=== PATIENT | female | born 1940 | race Caucasian/White ===

== ENCOUNTER 2022-02-09 11:49 | Observation (INO) ==
--- NOTE | 2022-02-09 12:37 | Emergency Department Note ---
HPI <Carlota Vargas PA-C - Last Filed: 02/09/22 19:57> General Chief complaint: Weakness Stated complaint: multiple complaints Time Seen by Provider: 02/09/22 12:02 Source: patient Mode of arrival: wheelchair Limitations: no limitations History of Present Illness HPI Narrative: Narrative: 81-year-old female presents to the emergency department with multiple concerns. She states that she has been sick for about 2 months and over the past week it has gotten worse. Her biggest complaint is that she cannot see well. She states she cannot see to watch TV or to read. This is getting prog ressively worse. She denies diplopia or blind spots. She describes her vision as blurred. At times she has pain in her eyes, she does not currently have pain. She complains of insomnia. When going from sitting to standing she does get lightheaded. She does feel short of breath with exertion. Her appetite is decreased. She denies nausea or vomiting. She denies black or bloody stools, as she states that she does not have bowel movements very often because she is not eating well. She does have generalized weakness without focal weakness. Patient has chronic back pain and has been having some difficulty with walking. She is seeing Dr. Cooper for this who has ordered an MRI of her back. Related Data Home Medications Medication Instructions Recorded Confirmed lisinopril 10 1 tab PO QDAY 03/15/21 02/09/22 mg-hydrochlorothiazide 12.5 mg tablet esomeprazole magnesium 20 mg 20 mg PO QDAY 02/09/22 02/09/22 capsule,delayed release (Nexium) multivitamin 1 tab PO QAM 02/09/22 02/09/22 Allergies Allergy/AdvReac Type Severity Reaction Status Date / Time Cortisone Allergy Mild Hives Verified 02/04/22 09:31 fentanyl Allergy Mild rash Verified 02/09/22 21:29 tramadol Allergy Mild Rash Verified 02/09/22 21:29 Amoxicillin AdvReac Mild Fatigued Verified 02/09/22 21:29 codeine AdvReac Mild Confusion Verified 02/09/22 21:29 Review of Systems <Carlota Vargas PA-C - Last Filed: 02/09/22 19:57> ROS ROS Narrative: Narrative: All systems ED: reviewed and negative except as stated. 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) Diverticulosis (Chronic) Hypertension (Chronic) Seasonal allergies (Chronic) Osteopenia (Chronic) Chronic back pain (Chronic) Pain in joint of left hip (Chronic) Osteoarthritis, knee (Acute) Medical History (Updated 02/09/22 @ 19:55 by Carlota Vargas PA-C) Chronic back pain Chronic pain Diverticulosis Hypertension Low back pain Lumbar radiculopathy Lumbar stenosis with neurogenic claudication Neoplasm of uncertain behavior of skin Osteoarthritis, knee Osteopenia Pain in joint of left hip Seasonal allergies Skin mole Trunk Surgical History (Updated 03/15/21 @ 10:51 by Dianne Rothman) History of colon surgery (~09/2020) Removed 12 inches of bowel History of lumpectomy of both breasts History of partial knee replacement Family History (Updated 03/21/21 @ 08:57 by Lana Gomez) Father Cancer Heart disease Brother Cancer Arthritis Diabetes Mother Arthritis Sister Arthritis Social History Smoking Status: Never smoker Alcohol Intake Frequency: does not drink Substance Use: does not use Exam <Carlota Vargas PA-C - Last Filed: 02/09/22 19:57> Narrative Narrative: Narrative: General Limitations: no limitations General appearance: Present alert and in no apparent distress Head Head: Present atraumatic and normocephalic Eye Eye: Present PERRL, EOMI and other (Pale palpebral conjunctiva) ENT ENT: Present normal exam Neck Neck: Present normal inspection; Absent lymphadenopathy or thyromegaly Chest Chest: Present normal inspection Respiratory Respiratory: Present normal lung sounds bilaterally Cardiovascular Cardiovascular: Present tachycardia Adbominal Abdominal: Present soft; Absent tenderness Rectal Rectal: Present normal rectal tone and other (Very little light brown stool on exam glove, Hemoccult negative) Course <Carlota Vargas PA-C - Last Filed: 02/09/22 19:57> Vital Signs Vital signs: Vital Signs Pulse Rate 114 H 02/09/22 11:50 Respiratory Rate 18 02/09/22 11:50 Blood Pressure 139/73 02/09/22 11:50 Pulse Oximetry (%) 98 02/09/22 11:50 Temperature 97.4 F 02/10/22 07:01 Pulse Rate 85 02/10/22 07:01 Respiratory Rate 18 02/10/22 07:01 Blood Pressure 107/55 02/10/22 07:01 Pulse Oximetry (%) 99 02/10/22 07:01 MDM <Carlota Vargas PA-C - Last Filed: 02/09/22 19:57> MDM Narrative Medical decision making narrative: Narrative: Records were received from [facility]. Labs were col lected on February 07, 2022 sodium 128, potassium 4.4, glucose 97, BUN 15, creatinine 1.0 White cell count 8.2 hemoglobin 8.4, hematocrit 25.1 iron is 15 with a normal range of 50-212 Labs have been ordered including a Chem-8 and repeat CBC. Patient was treated with IV fluids and 1 unit of packed red blood cells. I discussed patient with Dr. Gunter, the on-call surgeon. I do suspect a GI source of slow blood loss, but cannot confirm this due to no stool on Hemoccult card. Dr. Gunter states that the patient can schedule with his office or that this could be arranged by her primary care provider. After patient received blood transfusion she continued to feel weak. She did not think she could go home. EKG shows normal sinus rhythm, rate of 99, no ST segment changes, normal intervals. This was reviewed by myself with Dr. Stockton. I discussed the patient with the hospitalist. She will be admitted for symptomatic hyponatremia and anemia. A chest x-ray and UA were ordered for the hospitalist recommendation. Chest x- ray was reviewed by myself, there are no acute changes. Lab Data Result diagrams: 02/10/22 05:07 02/10/22 05:06 Labs: Lab Results 02/09/22 02/09/22 02/09/22 Range/Units 12:50 12:57 20:45 WBC 6.9 (4.5-11.0) K/mcL RBC 2.79 L (3.59-5.38) M/mcL Hgb 7.5 L (11.2-15.7) g/dL Hct 22.4 L (34.1-44.9) % POC Hct 24.0 L (36-48) MCV 80.3 (80.0-100.0) fL MCH 26.9 (26.0-34.0) pg MCHC 33.5 (31.0-36.0) g/dL RDW 15.3 H (11.5-14.5) % Plt Count 271 (140-440) K/mcL MPV 9.0 (7.4-10.4) fL Neut % (Auto) 76.5 (38.0-78.0) % Lymph % (Auto) 15.3 L (15.5-49.0) % [place] % (Auto) 7.7 (1.0-12.0) % Eos % (Auto) 0.1 (0.0-7.0) % Baso % (Auto) 0.4 (0.0-2.0) % Lymph # (Auto) 1.05 L (1.50-4.80) K/mcL [place] # (Auto) 0.53 (0.10-0.90) K/mcL Eos # (Auto) 0.01 (0.00-0.70) K/mcL Baso # (Auto) 0.03 (0.00-0.30) K/mcL Absolute Neutrophils 5.25 (1.80-8.00) K/mcL POC Sodium 125 L (133-145) POC Potassium 4.5 (3.3-5.1) POC Chloride 91 L (96-108) POC Total CO2 23.0 (22-30) POC BUN 15 (6-20) POC Creatinine 1.0 (0.6-1.2) POC Glucose 138 H (70-105) POC WB Ioniz Calcium 1.16 (1.16-1.32) Urine Color Yellow Urine Appearance Clear (Clear) Urine pH 6.0 (5.0-9.0) Ur Specific [place] 1.009 (1.000-1.035) Urine Protein Negative (Negative) mg/dL Urine Glucose (UA) Negative (Negative) mg/dL Urine Ketones Negative (Negative) mg/dL Urine Occult Blood 0.03 (Negative) mg/dL Urine Nitrate Negative (Negative) Urine Bilirubin Negative (Negative) mg/dL Urine Urobilinogen Negative mg/dL Ur Leukocyte Esterase Negative (Negative) /uL Urine RBC 1 (0-3) /hpf Urine WBC 2 (0-4) /hpf Ur Squamous Epith Cells 1 (0-4) /hpf Urine Bacteria None (0) /hpf Ur Culture Indicated? No Discharge Plan Patient/Caregiver Discharge Instructions Pt seen by ASSOCIATE ENTERTAINMENT EDITOR/PA only: Yes (Patient was discussed with Dr. Mason and Dr. Stockton, and they did not see pt) Clinical Impression: Acute hyponatremia, Anemia Patient Disposition: Xfer As Inpt ([facility]) Discharge Date/Time: 02/09/22 21:30
[2022-02-09 13:01] LABS: POC Calcium, Ionized 1.16 (1.16-1.32); POC Potassium 4.5 (3.3-5.1)
[2022-02-09 13:43] LABS: Basophils # (Auto) 0.03 K/mcL (0.00-0.30); Basophils % (Auto) 0.4 % (0.0-2.0); Eosinophils # (Auto) 0.01 K/mcL (0.00-0.70); Eosinophils % (Auto) 0.1 % (0.0-7.0); Hematocrit 22.4 % (34.1-44.9); Hemoglobin 7.5 g/dL (11.2-15.7); Lymphocytes # (Auto) 1.05 K/mcL (1.50-4.80); Lymphocytes % (Auto) 15.3 % (15.5-49.0); Mean Cell Volume 80.3 fL (80.0-100.0); Mean Corpuscular HGB Conc 33.5 g/dL (31.0-36.0); Monocytes # (Auto) 0.53 K/mcL (0.10-0.90); Monocytes % (Auto) 7.7 % (1.0-12.0); Neutrophils % (Auto) 76.5 % (38.0-78.0); Platelet Count 271 K/mcL (140-440); RBC 2.79 M/mcL (3.59-5.38); Red Cell Distribution Width 15.3 % (11.5-14.5)
[2022-02-09] MEDS ORDERED: 0.9 % SODIUM CHLORIDE 250 ML IV SCH (14:00)
[2022-02-09 14:13] LABS: WBC 6.9 K/mcL (4.5-11.0)
[2022-02-09] MEDS ORDERED: ONDANSETRON 4 MG/2 ML VIAL IV PRN (21:04)
[2022-02-09] MEDS ORDERED: ACETAMINOPHEN 325 MG TABLET PO PRN (21:09)
[2022-02-09] MEDS ORDERED: IPRATROPIUM/ALBUTEROL 3 ML AMPUL.NEB NEB PRN (21:09)
[2022-02-09] MEDS ORDERED: PROCHLORPERAZINE 10 MG/2 ML VIAL IV PRN (21:09)
[2022-02-09] MEDS ORDERED: MAG HYDROX/AL HYDROX/SIMETH 30 ML ORAL.SUSP PO PRN (21:09)
[2022-02-09] MEDS ORDERED: CALCIUM CARBONATE 500 MG TAB.CHEW CHEWED PRN (21:09)
[2022-02-09 21:26] LABS: Appearance,Urine CLEAR (Clear); Bilirubin,Urine Negative (Negative); Color,Urine YELLOW; Culture Indicated,Urine No; Glucose,Urine (UA) Negative (Negative); Ketones,Urine Negative (Negative); Leukocyte Esterase,Urine Negative /uL (Negative); Nitrate,Urine Negative (Negative); Protein,Urine Negative (Negative); Specific Gravity,Urine 1.009 (1.000-1.035); Urine Blood 0.03 mg/dL (Negative); Urine RBC 1 /hpf (0-3); Urine Squamous Epithelial Cell 1 /hpf (0-4); Urine WBC 2 /hpf (0-4); Urobilinogen,Urine Negative
[2022-02-09] MEDS: 0.9 % SODIUM CHLORIDE 1,000 ML IV SCH (21:54)
[2022-02-09] MEDS ORDERED: traZODone HCL 50 MG TABLET PO PRN (22:15)
[2022-02-09] MEDS: 0.9 % SODIUM CHLORIDE 10 ML SYRINGE IV SCH (22:37)
[2022-02-09] MEDS: QUEtiapine 25 MG TABLET PO SCH (23:05)
[2022-02-09] MEDS: DOCUSATE SODIUM 100 MG CAPSULE PO SCH (23:08)
[2022-02-09] MEDS ORDERED: QUEtiapine 25 MG TABLET ONE (23:10)
[2022-02-10] MEDS: 0.9 % SODIUM CHLORIDE 10 ML SYRINGE IV SCH ×3 (04:41→20:31)
[2022-02-10 06:36] LABS: Basophils # (Auto) 0.02 K/mcL (0.00-0.30); Basophils % (Auto) 0.4 % (0.0-2.0); Eosinophils # (Auto) 0.04 K/mcL (0.00-0.70); Eosinophils % (Auto) 0.8 % (0.0-7.0); Hematocrit 26.3 % (34.1-44.9); Lymphocytes # (Auto) 1.35 K/mcL (1.50-4.80); Lymphocytes % (Auto) 28.4 % (15.5-49.0); Mean Cell Volume 87.7 fL (80.0-100.0); Mean Corpuscular HGB Conc 30.4 g/dL (31.0-36.0); Mean Platelet Volume 8.9 fL (7.4-10.4); Monocytes # (Auto) 0.49 K/mcL (0.10-0.90); Monocytes % (Auto) 10.3 % (1.0-12.0); Neutrophils % (Auto) 60.1 % (38.0-78.0); Platelet Count 184 K/mcL (140-440); Red Cell Distribution Width 16.2 % (11.5-14.5)
[2022-02-10 06:50] LABS: ALT/SGPT 24 U/L (<40); AST/SGOT 26 U/L (<32); Albumin 2.6 gm/dL (3.2-5.2); Albumin/Globulin Ratio 0.8 (1.0-2.3); Alkaline Phosphatase 151 U/L (39-117); Bilirubin,Total 0.9 mg/dL (0.1-1.0); Blood Urea Nitrogen 12 mg/dL (8-23); Calcium 8.3 mg/dL (8.6-10.4); Carbon Dioxide 21 mmol/L (22-30); Chloride 92 mmol/L (96-108); Globulin 3.1 gm/dL (2.2-3.7); Glomerular Filtration Rate 60; Glucose 87 mg/dL (70-105)
--- NOTE | 2022-02-10 07:09 | EKG ---
[facility] Test Date: 2022-02-09 Pat Name: Sole Peñaloza Department: ED Room: Gender: Female Educational Psychologist: : 1940 Requested By: Dewayne Mason Order Number: [id number] Reading MD: Chico Huerta Measurements Intervals [place] Rate: 113 P: 60 PA: 159 QRS: -27 QRSD: 86 T: 49 QT: 318 QTc: 436 Interpretive Statements Sinus tachycardia Borderline left axis deviation Electronically Signed On 02-10-2022 7:09:14 PDT by Chico Huerta /store/[email or web address]/[id number]
[2022-02-10 07:30] LABS: WBC 4.8 K/mcL (4.5-11.0)
[2022-02-10] MEDS ORDERED: PANTOPRAZOLE 40 MG TABLET PO SCH (07:30)
[2022-02-10] MEDS: ENOXAPARIN 40 MG/0.4 ML SYRINGE SQ SCH (08:06)
[2022-02-10] MEDS: DOCUSATE SODIUM 100 MG CAPSULE PO SCH ×2 (08:06→20:30)
--- NOTE | 2022-02-10 08:47 | XRay Report ---
CLINICAL INFORMATION: Dyspnea COMPARISON: 07/17/2011. TECHNIQUE: PA and Lateral views FINDINGS: The heart size, mediastinum and pulmonary vessels are unremarkable. Minor bibasilar atelectasis noted.. There are no effusions. The bones and soft tissues are within normal limits. IMPRESSION: Normal chest. Interpreted and Authenticated by: Elijah Dent 02/10/22
[2022-02-10] MEDS: 0.9 % SODIUM CHLORIDE 1,000 ML IV SCH (10:26)
--- NOTE | 2022-02-10 11:27 | Internal Med History&Physical ---
HPI History of Present Illness Patient information: Note initiated : 02/09/22 at 23:26 am Service Date, if different from initiated Date: [] Patient: Sole Peñaloza 81 y/o F admitted on 02/09/22 for multiple complaints. Chief Complaint: [] Chief complaint: weakness History of present illness: This is a 81-year-old female with a history of essential hypertension GERD was brought to the ER because of worsening abdominal symptoms low appetite and recurrent headache for the last 2 months patient discussed this with her family member who is a PA and recommended going to the emergency room. Patient had chronic back pain and seen by pain physician and started on duloxetine which made her nauseated having diarrhea and patient stopped taking the medication Patient has been feeling worse since then and was brought to the ER in the emergency room initial work-up was unremarkable no signs of infection no evidence of any ischemia patient vital signs within normal limits but her lab work-up showed evidence of hemoglobin 7.5 and given 1 unit of blood transfusion also her sodium was 125. Patient takes hydrochlorothiazide at home. Patient was admitted to hospital for further management hyponatremia and hemoglobin is 7.5 which the emergency room physician discussed with on-call surgeon and recommended outpatient work-up Review of Systems All systems: reviewed and no additional remarkable complaints except as stated Constitutional Constitutional: Present fatigue, headache(s) and malaise; Absent daytime sleepiness, fever(s) or increased appetite EENT Eyes: Absent change in vision, discharge or floaters Ears: Absent decreased hearing, ear pain or tinnitus Nose, mouth and throat: Present dizziness and headache(s); Absent change in voice or epistaxis Cardiovascular Cardiovascular: Absent chest pain with activity, dyspnea, edema, leg edema, orthopnea, pedal edema, slow heart rate or syncope Respiratory Respiratory: Absent hemoptysis, snoring, chest congestion or pain with cough Gastrointestinal Gastrointestinal: Present change in bowel habits, constipation, diarrhea and nausea; Absent coffee ground emesis, fecal incontinence, hematemesis or melena Genitourinary Genitourinary: Present amenorrhea and change in libido; Absent breast pain, difficulty urinating, dyspareunia or genital lesions Musculoskeletal Musculoskeletal: Present back pain, muscle cramps, muscle weakness and neck pain Neurological Neurological: Present burning sensations and disequilibrium; Absent abnormal movements, frequent falls, loss of vision, paresthesias, tremor(s) or other visual disturbances PFSH PFSH All Active Problems (Updated 02/09/22 @ 19:55 by Carlota Vargas PA-C) Acute hyponatremia (Acute) Anemia (Acute) Lumbosacral spondylosis (Acute) Spondylosis without myelopathy or radiculopathy, lumbar region (Acute) Low back pain (Chronic) Lumbar radiculopathy (Chronic) Lumbar stenosis with neurogenic claudication (Chronic) Chronic pain (Chronic) Skin mole (Chronic) 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) Diverticulosis (Chronic) Hypertension (Chronic) Seasonal allergies (Chronic) Osteopenia (Chronic) Chronic back pain (Chronic) Pain in joint of left hip (Chronic) Osteoarthritis, knee (Acute) Medical History (Updated 02/09/22 @ 19:55 by Carlota Vargas PA-C) Chronic back pain Chronic pain Diverticulosis Hypertension Low back pain Lumbar radiculopathy Lumbar stenosis with neurogenic claudication Neoplasm of uncertain behavior of skin Osteoarthritis, knee Osteopenia Pain in joint of left hip Seasonal allergies Skin mole Trunk Surgical History (Updated 03/15/21 @ 10:51 by Dianne Rothman) History of colon surgery (~09/2020) Removed 12 inches of bowel History of lumpectomy of both breasts History of partial knee replacement Family History (Updated 03/21/21 @ 08:57 by Lana Gomez) Father Cancer Heart disease Brother Cancer Arthritis Diabetes Mother Arthritis Sister Arthritis Social History (Updated 03/21/21 @ 08:57 by Lana Gomez) marital status: education level: high school occupational status: retired smoking status: Never smoker alcohol intake frequency: does not drink substance use type: does not use MEDS/ALLERGIES Home Medications and Allergies Home Medications Medication Instructions Recorded Confirmed Type lisinopril 10 1 tab PO QDAY 03/15/21 02/09/22 History mg-hydrochlorothiazide 12.5 mg tablet esomeprazole magnesium 20 mg 20 mg PO QDAY 02/09/22 02/09/22 History capsule,delayed release (Nexium) multivitamin 1 tab PO QAM 02/09/22 02/09/22 History Allergies Allergy/AdvReac Type Severity Reaction Status Date / Time Cortisone Allergy Mild Hives Verified 02/04/22 09:31 fentanyl Allergy Mild rash Verified 02/09/22 21:29 tramadol Allergy Mild Rash Verified 02/09/22 21:29 Amoxicillin AdvReac Mild Fatigued Verified 02/09/22 21:29 codeine AdvReac Mild Confusion Verified 02/09/22 21:29 EXAM Constitutional Vitals: Temp Pulse Resp BP Pulse Ox 97.4 F 85 18 107/55 99 02/10/22 07:01 02/10/22 07:01 02/10/22 07:01 02/10/22 07:01 02/10/22 07:01 General appearance: mild distress Head Head exam: Present atraumatic and normal inspection Expanded Head Exam Head exam: Absent abrasion, Snyder's sign, CSF rhinorrhea or laceration Eye Eye exam: Present EOMI; Absent conjunctival injection or periorbital swelling Pupils: Present PERRL ENT ENT exam: Present mucous membranes dry and normal oropharynx Neck Neck exam: Present full ROM and normal inspection; Absent lymphadenopathy, meningismus or tenderness Respiratory Respiratory exam: Present normal respiratory exam and CTAB; Absent accessory muscle use or respiratory distress Cardiovascular Cardiovascular exam: Present normal rate and rhythm; Absent bradycardia, irregular rhythm, +S3 or +S4 Expanded Upper Extremity Exam General: Present normal inspection; Absent abrasion, amputation or laceration Back Exam Back exam: Present normal inspection; Absent CVA tenderness (L) or CVA tenderness (R) Neurological Exam Neurological exam: Present alert, CN II-XII intact, oriented X3 and reflexes normal; Absent motor sensory deficit Psychiatric Psychiatric exam: Present anxious and depressed Expanded Psychiatric Exam Focused psych exam: Present loose associations and restlessness DATA Data Completed and Pending Labs: Labs from last 24 hours 02/10/22 02/10/22 02/09/22 05:07 05:06 20:45 WBC 4.8 RBC 3.00 L Hgb 8.0 L Hct 26.3 L POC Hct MCV 87.7 MCH 26.7 MCHC 30.4 L RDW 16.2 H Plt Count 184 MPV 8.9 Neut % (Auto) 60.1 Lymph % (Auto) 28.4 [place] % (Auto) 10.3 Eos % (Auto) 0.8 Baso % (Auto) 0.4 Lymph # (Auto) 1.35 L [place] # (Auto) 0.49 Eos # (Auto) 0.04 Baso # (Auto) 0.02 Absolute Neutrophils 2.85 POC Sodium Sodium 123 L POC Potassium Potassium 4.4 POC Chloride Chloride 92 L Carbon Dioxide 21 L POC Total CO2 Anion Gap 10.0 POC BUN BUN 12 Creatinine 0.9 POC Creatinine GFR Calculation 60 Glucose 87 POC Glucose Calcium 8.3 L POC WB Ioniz Calcium Magnesium 1.8 Total Bilirubin 0.9 AST 26 ALT 24 Alkaline Phosphatase 151 H Total Protein 5.7 L Albumin 2.6 L Globulin 3.1 Albumin/Globulin Ratio 0.8 L Urine Color Yellow Urine Appearance Clear Urine pH 6.0 Ur Specific [place] 1.009 Urine Protein Negative Urine Glucose (UA) Negative Urine Ketones Negative Urine Occult Blood 0.03 Urine Nitrate Negative Urine Bilirubin Negative Urine Urobilinogen Negative Ur Leukocyte Esterase Negative Urine RBC 1 Urine WBC 2 Ur Squamous Epith Cells 1 Urine Bacteria None Ur Culture Indicated? No 02/09/22 02/09/22 12:57 12:50 WBC 6.9 RBC 2.79 L Hgb 7.5 L Hct 22.4 L POC Hct 24.0 L MCV 80.3 MCH 26.9 MCHC 33.5 RDW 15.3 H Plt Count 271 MPV 9.0 Neut % (Auto) 76.5 Lymph % (Auto) 15.3 L [place] % (Auto) 7.7 Eos % (Auto) 0.1 Baso % (Auto) 0.4 Lymph # (Auto) 1.05 L [place] # (Auto) 0.53 Eos # (Auto) 0.01 Baso # (Auto) 0.03 Absolute Neutrophils 5.25 POC Sodium 125 L Sodium POC Potassium 4.5 Potassium POC Chloride 91 L Chloride Carbon Dioxide POC Total CO2 23.0 Anion Gap POC BUN 15 BUN Creatinine POC Creatinine 1.0 GFR Calculation Glucose POC Glucose 138 H Calcium POC WB Ioniz Calcium 1.16 Magnesium Total Bilirubin AST ALT Alkaline Phosphatase Total Protein Albumin Globulin Albumin/Globulin Ratio Urine Color Urine Appearance Urine pH Ur Specific [place] Urine Protein Urine Glucose (UA) Urine Ketones Urine Occult Blood Urine Nitrate Urine Bilirubin Urine Urobilinogen Ur Leukocyte Esterase Urine RBC Urine WBC Ur Squamous Epith Cells Urine Bacteria Ur Culture Indicated? A/P Narrative A/P Narrative: Hyponatremia Probably due to poor oral intake versus SIADH Order urine sodium We will start her on IV fluid hydration and recheck sodium If it is dropping we will consider salt tablets Patient was complaining of headache anxious and recently started on duloxetine which made her abdominal symptoms and diarrhea Possible blood loss anemia Patient's hemoglobin was 7.5 and recently its been in the 8 range Patient denied any history of history of melena or abdominal symptoms Emergency room physician discussed with the on-call surgeon and recommended outpatient work-up Chronic headache Will do an MRI to look for any space-occupying lesions She need outpatient neurology work-up if she continued having headache even after negative MRI Insomnia and anxiety Patient exhibiting significant anxiety and insomnia no sleep for the last 2 dariel hs Starting the patient on Seroquel 25 mg Essential hypertension Patient take lisinopril and hydrochlorothiazide we will hold that because of the hyponatremia Time Spent With Patient Time: Total time spent is greater than 50% in coordination of care (as documented) at patient's floor/unit and/or counseling patient:
[2022-02-10] MEDS ORDERED: 0.9 % SODIUM CHLORIDE 250 ML IV SCH (11:30)
--- NOTE | 2022-02-10 11:39 | Internal Med Progress Note ---
SUBJECTIVE Subjective Patient information: Note initiated : 02/10/22 at 11:35 am Service Date, if different from initiated Date: [] Patient: Sole Peñaloza 81 y/o F admitted on 02/09/22 for multiple complaints. Chief Complaint: [] Interval history: This is a 81-year-old female with a history of essential hypertension GERD was brought to the ER because of worsening abdominal symptoms low appetite and recurrent headache for the last 2 months patient discussed this with her family member who is a PA and recommended going to the emergency room. Patient had chronic back pain and seen by pain physician and started on duloxetine which made her nauseated having diarrhea and patient stopped taking the medication Patient has been feeling worse since then and was brought to the ER in the emergency room initial work-up was unremarkable no signs of infection no evidence of any ischemia patient vital signs within normal limits but her lab work-up showed evidence of hemoglobin 7.5 and given 1 unit of blood transfusion also her sodium was 125. Patient takes hydrochlorothiazide at home. Patient was admitted to hospital for further management hyponatremia and hemoglobin is 7.5 which the emergency room physician discussed with on-call surgeon and recommended outpatient work-up 02/10 Sodium continues to drop even after IV hydration which indicate possible SIADH Starting the patient on salt tablet and recheck sodium Ordered urine sodium level Ordered 1 more unit of blood transfusion MRI pending Patient is able to sleep with the Seroquel Continued Pertinent ROS: Review of system unremarkable Patient continued having intermittent headache No other new symptoms Was able to sleep decent with the seroquel Constitutional Vitals: Vital Signs Temp Pulse Resp BP Pulse Ox 97.4 F 85 18 107/55 99 02/10/22 07:01 02/10/22 07:01 02/10/22 07:01 02/10/22 07:01 02/10/22 07:01 Period Temp Pulse Resp BP Sys/Rivera Pulse Ox Last 24 Hr 97.4 F-98.2 F 80-114 16-34 80-154/36-87 93-100 Intake and Output 02/09/22 02/10/22 02/10/22 21:59 05:59 13:59 Intake Total 658 625 7882 Output Total 300 475 Balance 325 -100 765 Weight 151 lb 151 lb Intake & Output: Intake & Output 02/09/22 02/10/22 02/10/22 21:59 05:59 13:59 Intake Total 114 482 3935 Output Total 300 475 Balance 325 -100 765 Weight 151 lb 151 lb Intake: IV 1000 Sodium Chloride 0.9% 1,000 ml @ 1000 100 mls/hr IV .Q10H [facility] Rx#: [id number] Oral 200 240 Blood Product 325 Output: Void Amount 300 475 Other: Meal snack Breakfast Percent of Meal Consumed 100% 50% Feeding Ability Independent Urine Appearance Clear Urine Color Straw General appearance: cooperative and no acute distress Head Head exam: Present atraumatic and normal inspection Eye Eye exam: Present EOMI Pupils: Present normal accommodation ENT ENT exam: Present mucous membranes moist and normal oropharynx Respiratory Respiratory exam: Present CTAB; Absent accessory muscle use, respiratory distress or wheezes Cardiovascular Cardiovascular exam: Present normal rate and rhythm; Absent bradycardia or gall op GI/Abdominal GI/Abdominal exam: Present normal bowel sounds and soft; Absent distended OBJ DATA Labs CBC & Chem 7: 02/10/22 05:07 02/10/22 05:06 Labs: Abnormal Lab Results 02/10/22 02/10/22 02/09/22 05:07 05:06 12:57 RBC 3.00 L Hgb 8.0 L Hct 26.3 L POC Hct 24.0 L MCHC 30.4 L RDW 16.2 H Lymph % (Auto) Lymph # (Auto) 1.35 L POC Sodium 125 L Sodium 123 L POC Chloride 91 L Chloride 92 L Carbon Dioxide 21 L POC Glucose 138 H Calcium 8.3 L Alkaline Phosphatase 151 H Total Protein 5.7 L Albumin 2.6 L Albumin/Globulin Ratio 0.8 L 02/09/22 12:50 RBC 2.79 L Hgb 7.5 L Hct 22.4 L POC Hct MCHC RDW 15.3 H Lymph % (Auto) 15.3 L Lymph # (Auto) 1.05 L POC Sodium Sodium POC Chloride Chloride Carbon Dioxide POC Glucose Calcium Alkaline Phosphatase Total Protein Albumin Albumin/Globulin Ratio Meds: Medications Acetaminophen (Acetaminophen 325 Mg Tablet) 650 mg PO Q6HP PRN; Protocol PRN Reason: Per Pain Protocol/Fever > 101 Al Hydrox/Mg Hydrox/Simethicone (Mag Hydrox/Al Hydrox/Simeth 30 Ml Oral.Susp) 30 ml PO Q6HP PRN PRN Reason: Dyspepsia Albuterol/Ipratropium (Ipratropium/Albuterol 3 Ml Ampul.Neb) 3 ml NEB Q6HRT PRN PRN Reason: Wheezing Calcium Carbonate/Glycine (Calcium Carbonate 500 Mg Tab.Chew) 1,000 mg CHEWED Q4HP PRN PRN Reason: Dyspepsia Docusate Sodium (Docusate Sodium 100 Mg Capsule) 100 mg PO BID [facility] Last Admin: 02/10/22 08:06 Dose: 100 mg Documented by: Enoxaparin Sodium (Enoxaparin 40 Mg/0.4 Ml Syringe) 40 mg SQ DAILY [facility] Last Admin: 02/10/22 08:06 Dose: 40 mg Documented by: Sodium Chloride (Sodium Chloride 0.9%) 250 mls @ 20 mls/hr IV .[id number] [facility] Stop: 02/10/22 23:59 Magnesium Hydroxide (Magnesium Hydroxide 30 Ml Oral.Susp) 30 ml PO DAILYP PRN PRN Reason: Constipation Ondansetron HCl (Ondansetron 4 Mg/2 Ml Vial) 4 mg IV Q6HP PRN PRN Reason: Nausea And Vomiting Esomeprazole [Nexium (] 20 Mg Caps) 1 dose PO DAILY [facility] Prochlorperazine (Prochlorperazine 10 Mg/2 Ml Vial) 5 mg IV Q4HP PRN PRN Reason: Nausea And Vomiting Quetiapine Fumarate (Quetiapine 25 Mg Tablet) 25 mg PO HS [facility] Last Admin: 02/09/22 23:05 Dose: 25 mg Documented by: Senna (Sennosides 1 Tablet) 2 tab PO [facility] Sodium Chloride (0.9 % Sodium Chloride 10 Ml Syringe) 10 ml IV Q8 [facility] Last Admin: 02/10/22 04:41 Dose: Not Given Documented by: Sodium Chloride (Sodium Chloride 1 Gm Tablet) 2 gm PO TID [facility] Trazodone HCl (Trazodone Hcl 50 Mg Tablet) 25 mg PO HSP PRN PRN Reason: Insomnia A/P Narrative A/P Narrative: 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 Order urine sodium We will discontinue NS and starting her on salt tablets Possible blood loss anemia Patient's hemoglobin was 7.5 and recently its been in the 8 range Patient denied any history of history of melena or abdominal symptoms Emergency room physician discussed with the on-call surgeon and recommended outpatient work-up Hemoglobin remained around 8 and ordered 1 more unit of blood transfusion Chronic headache Will do an MRI to look for any space-occupying lesions She need outpatient neurology work-up if she continued having headache even after negative MRI Insomnia and anxiety Patient exhibiting significant anxiety and insomnia no sleep for the last 2 months Patient got some decent sleep with the Seroquel 25 mg-continued Essential hypertension Patient take lisinopril and hydrochlorothiazide we will hold that because of the hyponatremia Time Spent With Patient Time: Total time spent is greater than 50% in coordination of care (as documented) at patient's floor/unit and/or counseling patient: Total time spent with greater than 50% in coordination of care (as documented) at patient's floor/unit and/or counseling patient:: 35 - 50 minutes Critical Care Time: No
[2022-02-10] MEDS: ESOMEPRAZOLE 20 MG PO SCH (11:49)
[2022-02-10] MEDS: SODIUM CHLORIDE 1 GM TABLET PO SCH ×2 (17:42→20:30)
[2022-02-10] MEDS: MAGNESIUM HYDROXIDE 30 ML ORAL.SUSP PO PRN (19:00)
[2022-02-10] MEDS: QUEtiapine 25 MG TABLET PO SCH (20:30)
[2022-02-10] MEDS ORDERED: SENNOSIDES 1 TABLET PO SCH (21:00)
[2022-02-10] MEDS: hydrALAZINE 25 MG TABLET PO PRN (21:54)
--- NOTE | 2022-02-11 03:04 | Magnetic Resonance Report ---
CLINICAL INFORMATION: Headaches. History of hyponatremia and anemia COMPARISON: None. TECHNIQUE:Sagittal T1 FLAIR, axial T1 FLAIR, T2 FLAIR propeller, T2 propeller, gradient, diffusion, ADC and coronal T2 weighted images were acquired. FINDINGS: The ventricles, sulci, fissures and cisterns are symmetrically enlarged compatible with mild age-related atrophy configuration-no extra-axial fluid collections or mass are appreciated. Scattered senescent ischemic foci, in the deep cerebral white matter, are typical for age. 14 mm high signal lesion in the left thalamus also likely represents chronic ischemia. Two small chronic ischemic foci seen in the central tamera both less than 5 mm. There are no regions of restricted diffusion, edema, or mass affect. A 3 mm low signal focus in the right parietal white matter, on magnetic susceptibility images, is compatible with hemosiderin representing a small remote hemorrhage. The signal void in intracerebral arteries, extra-axial cranial nerves, pituitary, orbits and paranasal sinuses are all normal. IMPRESSION: Mild atrophy with scattered chronic ischemic foci in the deep cerebral white matter compatible age. Vague 14 mm region of increased signal in the left thalamus likely represents ischemia. Solitary 3 mm tiny focus of old hemorrhage in the posterior right parietal lobe. Interpreted and Authenticated by: Elijah Dent 02/11/22
[2022-02-11 06:35] LABS: Basophils # (Auto) 0.02 K/mcL (0.00-0.30); Basophils % (Auto) 0.4 % (0.0-2.0); Eosinophils # (Auto) 0.04 K/mcL (0.00-0.70); Eosinophils % (Auto) 0.8 % (0.0-7.0); Hematocrit 28.1 % (34.1-44.9); Hemoglobin 9.2 g/dL (11.2-15.7); Lymphocytes # (Auto) 1.12 K/mcL (1.50-4.80); Lymphocytes % (Auto) 23.5 % (15.5-49.0); Mean Cell Volume 79.6 fL (80.0-100.0); Mean Corpuscular HGB Conc 32.7 g/dL (31.0-36.0); Mean Platelet Volume 8.9 fL (7.4-10.4); Monocytes # (Auto) 0.44 K/mcL (0.10-0.90); Monocytes % (Auto) 9.2 % (1.0-12.0); Neutrophils % (Auto) 66.1 % (38.0-78.0); Platelet Count 207 K/mcL (140-440); RBC 3.53 M/mcL (3.59-5.38); Red Cell Distribution Width 15.8 % (11.5-14.5)
[2022-02-11 06:53] LABS: ALT/SGPT 44 U/L (<40); AST/SGOT 48 U/L (<32); Albumin 2.3 gm/dL (3.2-5.2); Albumin/Globulin Ratio 0.7 (1.0-2.3); Alkaline Phosphatase 206 U/L (39-117); Blood Urea Nitrogen 14 mg/dL (8-23); Calcium 8.3 mg/dL (8.6-10.4); Carbon Dioxide 22 mmol/L (22-30); Chloride 96 mmol/L (96-108); Globulin 3.5 gm/dL (2.2-3.7); Glomerular Filtration Rate 60; Glucose 84 mg/dL (70-105)
[2022-02-11] MEDS: ENOXAPARIN 40 MG/0.4 ML SYRINGE SQ SCH (08:44)
[2022-02-11] MEDS: DOCUSATE SODIUM 100 MG CAPSULE PO SCH (08:45)
[2022-02-11] MEDS: SODIUM CHLORIDE 1 GM TABLET PO SCH ×2 (08:45→14:48)
[2022-02-11] MEDS: ESOMEPRAZOLE 20 MG PO SCH (08:51)
[2022-02-11] MEDS: hydrALAZINE 25 MG TABLET PO PRN (08:54)
[2022-02-11 09:08] LABS: WBC 4.8 K/mcL (4.5-11.0)
[2022-02-11] MEDS: MAGNESIUM HYDROXIDE 30 ML ORAL.SUSP PO PRN (09:34)
--- NOTE | 2022-02-11 12:21 | Discharge Summary ---
Discharge Provider Provider IMPORTANT FOLLOW-UP INFORMATION FOR PCP: Follow up EGD and colonoscopy evaluation Patient information: Note initiated : 02/11/22 at 12:16 pm Service Date, if different from initiated Date: [] Patient: Sole Peñaloza 81 y/o F admitted on 02/09/22 for multiple complaints. Chief Complaint: [] Date of admission: 02/09/22 21:24 Discharge date: 02/11/22 Primary care physician: Anmu Castellon Consults: 02/10/22 07:23 Consult to Physician [CONS] Routine Comment: Consulting Provider: Adams Saldana Reason For Exam: Physician to Consult COURSE Hospital Course Hospital course: This is a 81-year-old female with a history of essential hypertension GERD was brought to the ER because of worsening abdominal symptoms low appetite and recurrent headache for the last 2 months patient discussed this with her family member who is a PA and recommended going to the emergency room. Patient had chronic back pain and seen by pain physician and started on duloxetine which made her nauseated having diarrhea and patient stopped taking the medication Patient has been feeling worse since then and was brought to the ER in the emergency room initial work-up was unremarkable no signs of infection no evidence of any ischemia patient vital signs within normal limits but her lab work-up showed evidence of hemoglobin 7.5 and given 1 unit of blood transfusion also her sodium was 125. Patient takes hydrochlorothiazide at home. Patient was admitted to hospital for further management hyponatremia and hemoglobin is 7.5 which the emergency room physician discussed with on-call surgeon and recommended outpatient work-up 02/10 Sodium continues to drop even after IV hydration which indicate possible SIADH Starting the patient on salt tablet and recheck sodium Ordered urine sodium level Ordered 1 more unit of blood transfusion MRI pending Patient is able to sleep with the Seroquel Continued 02/11 Patient had a bowel movement today and she is feeling better Her headache significantly improved Patient was able to sleep with the Seroquel 25 mg Her MRI did not show any acute stroke but she had probable subacute and chronic ischemic changes Patient will be started on aspirin 81 mg Her hemoglobin is stable she needs to see outpatient gastroenterology for colonoscopy and EGD Patient also needs to see neurology if she continued having headache Physical therapy evaluated the patient and no need for any inpatient rehab or subacute rehab patient can be discharged home 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 We will discontinue NS and starting her on salt tablets We will discontinue her hydrochlorothiazide Encourage her to increase her salt intake for the next 1 week Possible blood loss anemia Patient's hemoglobin was 7.5 and recently its been in the 8 range Patient denied any history of history of melena or abdominal symptoms Emergency room physician discussed with the on-call surgeon and recommended outpatient work-up Hemoglobin remained around 8 and ordered 1 more unit of blood transfusion and her hemoglobin more than 9 Outpatient follow-up with a general surgeon or gastroenterology for EGD and colonoscopy Chronic headache Will do an MRI to look for any space-occupying lesions She need outpatient neurology work-up if she continued having headache even after negative MRI Insomnia and anxiety Patient exhibiting significant anxiety and insomnia no sleep for the last 2 months Patient got some decent sleep with the Seroquel 25 mg-continued Dose decreased to 12.5 mg Essential hypertension Patient take lisinopril and hydrochlorothiazide we will hold that because of the hyponatremia Discharge diagnosis: hyponatremia Time Spent with Patient Time attestation: Total time spent providing and/or coordinating discharge services: Time spent: Greater than 30 minutes EXAM Constitutional Vitals: Temp Pulse Resp BP Pulse Ox 97.3 F 86 18 106/47 94 02/11/22 08:00 02/11/22 08:00 02/11/22 08:00 02/11/22 08:00 02/11/22 08:00 General appearance: cooperative and no acute distress Head Head exam: Present atraumatic and normal inspection Expanded Head Exam Head exam: Absent abrasion, CSF otorrhea or hematoma Eye Eye exam: Present EOMI and PERRL; Absent conjunctival injection or scleral icterus ENT ENT exam: Present mucous membranes moist and normal oropharynx Expanded ENT Exam Ear exam: Absent auricular hematoma or auricular trauma Neck Neck exam: Present full ROM and normal inspection; Absent lymphadenopathy or tenderness Respiratory Respiratory exam: Present normal respiratory exam and CTAB; Absent accessory muscle use or respiratory distress Cardiovascular Cardiovascular exam: Present normal rate and rhythm; Absent bradycardia, gallop or RRR GI/Abdominal GI/Abdominal exam: Present normal bowel sounds and soft; Absent distended or hernia Expanded GI/Abdominal Exam GI/Abdominal exam: Absent ascites Neurological Exam Neurological exam: Present abnormal gait, alert, CN II-XII intact, oriented X3 and reflexes normal; Absent altered or motor sensory deficit Discharge Data Data Completed and Pending Labs on day of discharge: Labs from last 24 hours 02/11/22 02/11/22 05:19 05:19 WBC 4.8 RBC 3.53 L Hgb 9.2 L Hct 28.1 L MCV 79.6 L MCH 26.1 MCHC 32.7 RDW 15.8 H Plt Count 207 MPV 8.9 Neut % (Auto) 66.1 Lymph % (Auto) 23.5 [place] % (Auto) 9.2 Eos % (Auto) 0.8 Baso % (Auto) 0.4 Lymph # (Auto) 1.12 L [place] # (Auto) 0.44 Eos # (Auto) 0.04 Baso # (Auto) 0.02 Absolute Neutrophils 3.14 Sodium 127 L Potassium 4.5 Chloride 96 Carbon Dioxide 22 Anion Gap 9.0 BUN 14 Creatinine 0.9 GFR Calculation 60 Glucose 84 Calcium 8.3 L Magnesium 2.0 Total Bilirubin 1.0 AST 48 H ALT 44 H Alkaline Phosphatase 206 H Total Protein 5.8 L Albumin 2.3 L Globulin 3.5 Albumin/Globulin Ratio 0.7 L Discharge Plan Patient/Caregiver Discharge Instructions Activity: resume usual activities as tolerated Diet: Regular Diet Activity Restrictions/Additional Instructions: Gastroenterology or general surgery evaluation and potential EGD and colonoscopy in 2 to 3 weeks Neurology-establish care for chronic headache and difficulty walking Follow-up with primary care regarding low hemoglobin and EGD and colonoscopy - in 1 week Stop taking hydrochlorothiazide Prescriptions: No Action lisinopril-hydrochlorothiazide 10-12.5 mg tablet 1 tab PO QDAY 0RF esomeprazole magnesium [Nexium] 20 mg Capsule,Delayed Release(Dr/Ec) 20 mg PO QDAY 0RF multivitamin [A To Z Multivitamin] Tablet 1 tab PO QAM 0RF Follow Up Plan Follow up with: Anum Castellon ARNP [Primary Care Provider] - Santo Jesus MD [Physician] - Patient Disposition: Home, Self-Care Rehab Potential: Fair I certify that the patient requires SNF services: No Overall status at discharge: patient is progressing back to baseline Discharge Orders: Discharge Order (Routine); Ordered 02/11/22 Ordered By: Adams Saldana
== END 2022-02-11 16:02 | disposition home or self-care (01) ==
LOC: ED 11:49 → ICU 11:49 → MEDSUR 02-10 15:12
PROVIDERS: ADMIT Internal Medicine; ATTEND Internal Medicine

== ENCOUNTER 2022-02-20 13:50 | Inpatient (IN) ==
--- NOTE | 2022-02-20 14:23 | Emergency Department Note ---
Weakness HPI General Chief complaint: Weakness Stated complaint: Weakness Time Seen by Provider: 02/20/22 13:54 Source: patient and family Mode of arrival: wheelchair Limitations: altered mental status and physical limitation History of Present Illness HPI Narrative: Narrative: 81-year-old female presents to the [facility] because of weakness with nausea vomiting dehydration poor eating inability to sleep pruritic rash and anemia. Patient was admitted to the hospital 10 days ago with hyponatremia. She was noted to be anemic and was transfused. Since the transfusion her blood level has dropped again and Dr. Boateng has arranged for her to be transfused again. Family describes her as not thriving and losing weight. She was seen by the GI doctor there but has not had a endoscopy or colonoscopy as far as I understand. Seen by Dr. Avendaño who did not feel that the left upper quadrant abdominal pain was surgical. She had CT scan of the abdomen on which showed no acute pathology. Was a gallstone present without acute cholecystitis. Had CT pulmonary angiogram on the which was negative. Patient's overall discomfort as an 8 on a 0-to-10 scale. The pruritus is uncontrolled. Nausea is uncontrolled. Nothing is making her better. Unable to take Benadryl because it wires her. Prescribed hydroxyzine 25 mg tablets now. Symptoms are constant. Diffuse. Related Data Home Medications Medication Instructions Recorded Confirmed esomeprazole magnesium 20 mg 20 mg PO QDAY 02/09/22 02/18/22 capsule,delayed release (Nexium) multivitamin 1 tab PO QAM 02/09/22 02/18/22 triamcinolone acetonide 0.1 % 1 applic TOPICAL QDAY 02/13/22 02/18/22 topical cream Previous Rx's Medication Instructions Recorded lactulose 10 gram/15 mL oral 20 g (30 mL) PO QDAY PRN #237 ml 02/11/22 solution lisinopril 10 mg tablet 10 mg PO QDAY #30 tab 02/11/22 quetiapine 25 mg tablet 12.5 mg PO HS #30 tab 02/11/22 sennosides 8.6 mg tablet (Senna 2 tab PO HS #30 tab 02/11/22 Lax) sodium chloride 1,000 mg soluble 2 gm PO TID #21 tab 02/11/22 tablet celecoxib 100 mg capsule (Celebrex) 100 mg PO BID #60 cap 02/18/22 hydroxyzine HCl 25 mg tablet 25 mg PO QID PRN #120 tab 02/18/22 pantoprazole 40 mg tablet,delayed 40 mg PO BID #60 tab 02/18/22 release sucralfate 1 gram tablet 1 g PO BID #120 tab 02/18/22 triamcinolone acetonide 0.5 % 1 applic TOPICAL TID #15 g 02/18/22 topical cream Allergies Allergy/AdvReac Type Severity Reaction Status Date / Time duloxetine Allergy Mild Rash Verified 02/20/22 13:50 fentanyl Allergy Mild rash Verified 02/20/22 13:50 tramadol Allergy Mild Rash Verified 02/20/22 13:50 Amoxicillin AdvReac Mild Fatigued Verified 02/20/22 13:50 codeine AdvReac Mild Confusion Verified 02/20/22 13:50 Review of Systems ROS ROS Narrative: Narrative: Constitutional: Denies fever Eyes: Denies eye discharge ENT ED: Denies throat pain or rhinorrhea Cardiovascular: Denies chest pain Respiratory: Denies shortness of breath Gastrointestinal: Reports nausea and vomiting Musculoskeletal: Reports back pain Integumentary: Reports rash (Diffuse, pruritic) Neurological: Reports headache Hematological/Lymphatic: Reports other (Having ongoing GI bleeding.) [facility] Narrative Patient History Narrative: Narrative: Medical/Surgical/Family History All Active Problems (Updated 02/20/22 @ 17:37 by Elvin Stockton MD) Acute hyponatremia (Acute) Anemia (Acute) Acute kidney injury (Acute) Acute dehydration (Acute) Acute gastrointestinal bleeding (Acute) Hyperbilirubinemia (Acute) Guaiac positive stools (Acute) Costochondral chest pain (Acute) Chronic iron deficiency anemia (Acute) Pruritic rash (Acute) Elevated ferritin level (Acute) Left lower quadrant abdominal pain (Acute) Abdominal pain (Acute) Insomnia (Acute) Chronic cerebral ischemia (Acute) Transaminitis (Acute) Hyponatremia (Acute) Iron deficiency anemia (Acute) Spondylosis (Chronic) Spondylosis without myelopathy or radiculopathy, lumbar region (Chronic) Lumbosacral spondylosis (Chronic) Anemia (Chronic) Acute hyponatremia (Chronic) Low back pain (Chronic) Lumbar radiculopathy (Chronic) Lumbar stenosis with neurogenic claudication (Chronic) Chronic pain (Chronic) Skin mole (Chronic) 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) Diverticulosis (Chronic) Hypertension (Chronic) Seasonal allergies (Chronic) Osteopenia (Chronic) Chronic back pain (Chronic) Pain in joint of left hip (Chronic) Osteoarthritis, knee (Chronic) Medical History Acute hyponatremia Anemia Chronic back pain Chronic cerebral ischemia Chronic pain Diverticulosis Elevated ferritin level Hypertension Hyponatremia Insomnia Iron deficiency anemia Left lower quadrant abdominal pain Low back pain Lumbar radiculopathy Lumbar stenosis with neurogenic claudication Lumbosacral spondylosis Neoplasm of uncertain behavior of skin Osteoarthritis, knee Osteopenia Pain in joint of left hip Pruritic rash Seasonal allergies Skin mole Trunk Spondylosis Spondylosis without myelopathy or radiculopathy, lumbar region Transaminitis Surgical History History of colon surgery (~09/2020) Removed 12 inches of bowel History of lumpectomy of both breasts (~2001) History of partial knee replacement Bilateral 2010 and 2014 Family History Father Cancer Heart disease Brother Arthritis Diabetes Cancer Pancreatic Mother Arthritis Diabetes Sister Arthritis Social History Smoking Status: Former smoker Alcohol Intake Frequency: does not drink Substance Use: does not use Exam Narrative Narrative: Narrative: Well-developed ill-appearing elderly female lying in bed holding an emesis bag and poorly interactive. General Limitations: altered mental status and physical limitation General appearance: Present alert and in distress Head Head: Present atraumatic and normocephalic Eye Eye: Present normal appearance and EOMI Neck Neck: Present normal inspection and trachea midline Respiratory Respiratory: Present rales/crackles (Right chest); Absent normal lung sounds bilaterally or respiratory distress Cardiovascular Cardiovascular: Present regular rate, normal rhythm and systolic murmur (3/6) Adbominal Abdominal: Present soft and tenderness (Left upper quadrant tender. Right upper quadrant is not tender. Lower abdomen nontender.); Absent guarding or rebound Extremities Extremities: Present pedal edema and pretibial edema Back Back: Present normal inspection (Except for the diffuse maculopapular irregular erythematous rash.) Neurological Neurological: Present alert and oriented X3 Psychiatric Psychiatric: Present normal affect and normal mood Skin Skin: Present warm (WNL), dry and rash (Diffusely irregular maculopapular erythematous rash on the back trunk extremities.) Course Vital Signs Vital signs: Vital Signs Temperature 97.9 F 02/20/22 13:50 Pulse Rate 101 H 02/20/22 13:50 Respiratory Rate 16 02/20/22 13:50 Blood Pressure 86/53 02/20/22 13:50 Pulse Oximetry (%) 94 02/20/22 13:50 Temperature 97.9 F 02/20/22 13:50 Pulse Rate 95 H 02/20/22 17:31 Respiratory Rate 16 02/20/22 13:50 Blood Pressure 121/66 02/20/22 17:31 Pulse Oximetry (%) 95 02/20/22 17:31 MDM MDM Narrative Medical decision making narrative: Narrative: Elderly lady with multiple symptoms including nausea vomiting weakness anemia and failure to thrive presents [facility] with family. Differential diagnosis includes GI bleed of unclear etiology, pneumonia, biliary disease, gastrointestinal disease, anemia, other. Hemoglobin was 8.0 which is slightly lower than a couple of days ago and the patient will be transfused. White count was normal at 4.5 with a platelet count mildly low at 116. Sodium was low at 127. Chloride was low at 92 potassium was normal at 4.4 and bicarb was low at 17. BUN and creatinine which had been normal on were now both elevated with a BUN of 32 and a creatinine of 1.4. Glucose was normal at 91. Bilirubin has been going up on the it was 1.1, it was 1.5, on the it was 2.1, and today the second it is 3.1. Abdominal ultrasound has been ordered. Chest x-ray has been ordered. Patient has rales. Patient was bolused a liter of normal saline to address her dehydration. Patient was given doxepin 25 mg p.o. and prednisone 20 mg p.o. to address her pruritus secondary to the rash. Patient will be transfused 2 units packed RBCs. Abdominal ultrasound is pending I discussed the case with Dr. Boateng. He has arranged for the patient be transfused 2 units of packed red blood cells. He was unclear what the etiology of the rash was and thought potentially it had to do with the previous blood transfusion. Bilirubin can be a cause of pruritus but I do not think it would cause the rash. I discussed the case with my colleague Dr. Perez who will assume care of the patient and will work with our hospitalist to admit the patient here or have the patient transferred. Lab Data Result diagrams: 02/20/22 14:50 02/20/22 14:50 Labs: Lab Results 02/20/22 02/20/22 Range/Units 14:50 14:50 WBC 4.5 (4.5-11.0) K/mcL RBC 3.04 L (3.59-5.38) M/mcL Hgb 8.0 L (11.2-15.7) g/dL Hct 24.9 L (34.1-44.9) % MCV 81.9 (80.0-100.0) fL MCH 26.3 (26.0-34.0) pg MCHC 32.1 (31.0-36.0) g/dL RDW 17.2 H (11.5-14.5) % Plt Count 116 L (140-440) K/mcL MPV 10.2 (7.4-10.4) fL Neut % (Auto) 78.9 H (38.0-78.0) % Lymph % (Auto) 14.9 L (15.5-49.0) % Murray % (Auto) 5.6 (1.0-12.0) % Eos % (Auto) 0.4 (0.0-7.0) % Baso % (Auto) 0.2 (0.0-2.0) % Lymph # (Auto) 0.67 L (1.50-4.80) K/mcL Murray # (Auto) 0.25 (0.10-0.90) K/mcL Eos # (Auto) 0.02 (0.00-0.70) K/mcL Baso # (Auto) 0.01 (0.00-0.30) K/mcL Absolute Neutrophils 3.54 (1.80-8.00) K/mcL Sodium 127 L (133-145) mmol/L Potassium 4.4 (3.3-5.1) mmol/L Chloride 92 L (96-108) mmol/L Carbon Dioxide 17 L (22-30) mmol/L Anion Gap 18.0 H (8.0-16.0) BUN 32 H (8-23) mg/dL Creatinine 1.4 H (0.6-1.1) mg/dL GFR Calculation 35 Glucose 91 (70-105) mg/dL Calcium 9.8 (8.6-10.4) mg/dL Total Bilirubin 3.1 H (0.1-1.0) mg/dL AST 58 H (<32) U/L ALT 32 (<40) U/L Alkaline Phosphatase 212 H (39-117) U/L Total Protein 5.5 L (5.9-8.4) gm/dL Albumin 2.3 L (3.2-5.2) gm/dL Globulin 3.2 (2.2-3.7) gm/dL Albumin/Globulin Ratio 0.7 L (1.0-2.3) Discharge Plan Patient/Caregiver Discharge Instructions Pt seen by [employer] SANDER/PA only: No Clinical Impression: Acute hyponatremia, Anemia, Acute kidney injury, Acute dehydration, Acute gastrointestinal bleeding, Hyperbilirubinemia Patient Disposition: Still a Patient Follow up with: Jatinder Boateng MD [Primary Care Provider] - Prescriptions: No Action pantoprazole 40 mg tablet,delayed release (DR/EC) 40 mg PO BID Qty: 60 1RF celecoxib [Celebrex] 100 mg capsule 100 mg PO BID Qty: 60 1RF sucralfate 1 gram tablet 1 g PO BID Qty: 120 2RF triamcinolone acetonide 0.1 % cream 1 applic topical QDAY 0RF triamcinolone acetonide 0.5 % cream 1 applic topical TID Qty: 15 3RF hydroxyzine HCl 25 mg tablet 25 mg PO QID PRN (Reason: itching) Qty: 120 0RF esomeprazole magnesium [Nexium] 20 mg Capsule,Delayed Release(Dr/Ec) 20 mg PO QDAY 0RF multivitamin Tablet 1 tab PO QAM 0RF quetiapine 25 mg Tablet 12.5 mg PO HS Qty: 30 1RF sennosides [Senna Lax] 8.6 mg Tablet 2 tab PO HS Qty: 30 0RF sodium chloride 1,000 mg Tablet,Soluble 2 gm PO TID Qty: 21 0RF lactulose 10 gram/15 mL solution 20 g PO QDAY PRN (Reason: constipation) Qty: 237 0RF lisinopril 10 mg tablet 10 mg PO QDAY Qty: 30 2RF
[2022-02-20] MEDS ORDERED: 0.9 % SODIUM CHLORIDE 1,000 ML IV ONE (14:35)
[2022-02-20] MEDS ORDERED: ONDANSETRON 4 MG/2 ML VIAL IV ONE (14:35)
[2022-02-20 15:33] LABS: Basophils # (Auto) 0.01 K/mcL (0.00-0.30); Basophils % (Auto) 0.2 % (0.0-2.0); Eosinophils # (Auto) 0.02 K/mcL (0.00-0.70); Eosinophils % (Auto) 0.4 % (0.0-7.0); Hematocrit 24.9 % (34.1-44.9); Lymphocytes # (Auto) 0.67 K/mcL (1.50-4.80); Lymphocytes % (Auto) 14.9 % (15.5-49.0); Mean Cell Volume 81.9 fL (80.0-100.0); Mean Corpuscular HGB Conc 32.1 g/dL (31.0-36.0); Mean Platelet Volume 10.2 fL (7.4-10.4); Monocytes # (Auto) 0.25 K/mcL (0.10-0.90); Monocytes % (Auto) 5.6 % (1.0-12.0); Neutrophils % (Auto) 78.9 % (38.0-78.0); Platelet Count 116 K/mcL (140-440); RBC 3.04 M/mcL (3.59-5.38); Red Cell Distribution Width 17.2 % (11.5-14.5); WBC 4.5 K/mcL (4.5-11.0)
[2022-02-20 16:01] LABS: ALT/SGPT 32 U/L (<40); AST/SGOT 58 U/L (<32); Albumin 2.3 gm/dL (3.2-5.2); Albumin/Globulin Ratio 0.7 (1.0-2.3); Alkaline Phosphatase 212 U/L (39-117); Bilirubin,Total 3.1 mg/dL (0.1-1.0); Blood Urea Nitrogen 32 mg/dL (8-23); Calcium 9.8 mg/dL (8.6-10.4); Carbon Dioxide 17 mmol/L (22-30); Chloride 92 mmol/L (96-108); Globulin 3.2 gm/dL (2.2-3.7); Glomerular Filtration Rate 35; Glucose 91 mg/dL (70-105)
[2022-02-20] MEDS ORDERED: DOXEPIN 25 MG CAPSULE PO STA (16:46)
[2022-02-20] MEDS ORDERED: predniSONE 20 MG TABLET PO ONE ×2 (16:46→21:31)
--- NOTE | 2022-02-20 17:00 | XRay Report ---
INDICATION: crackles right side. weak TECHNIQUE: AP portable chest x-ray chest x-ray COMPARISON: Previous examinations dated 02/09/2022, 07/17/2011 FINDINGS: Lungs:Lungs are negative. No focal pulmonary parenchymal infiltrate or mass Heart, vascular:No significant cardiomegaly. Pulmonary vascularity is normal. No pulmonary edema or pulmonary congestion Mediastinum, miguelina:No mediastinal widening. No hilar mass Pleura:No pleural fluid. No pleural-based mass or calcification Skeletal:Negative. IMPRESSION: 1. No acute or focal abnormality 2. No significant interval change Interpreted and Authenticated by: Elijah Gonzalez 02/20/22
--- NOTE | 2022-02-20 19:02 | Ultrasound Report ---
INDICATION: rising Bili, rising Cr and BUN, LUQ pain, Hg drop TECHNIQUE: Grayscale and color flow Doppler spectral imaging COMPARISON: Previous CT scan dated 02/14/2022 FINDINGS: Pancreas:Visualized portions of the pancreas are negative Gallbladder:Cholelithiasis. There are 2 stones in the neck of the gallbladder. These measure 10 mm and 8 mm. There are other calculi in the gallbladder fundus. No gallbladder wall thickening or pericholecystic fluid. No positive sonographic Davidson sign. Bile Ducts:No intra or extrahepatic bile duct dilatation. Common bile duct measures4 mm Liver:Homogeneous parenchyma. No focal abnormality. Liver contour is smooth. Liver [id number] cm Spleen:Spleen is enlarged. Spleen measures 18 cm x 16 cm x 12 cm. No focal abnormality. Normal hepatopedal portal venous flow Kidneys:Right kidney measures 10.2 x 5.2 x 4.8 cm. Left kidney measures 9.7 x 4.1 x 5.2 cm. No solid or cystic mass. No hydronephrosis Vascular:No abdominal aortic aneurysm IMPRESSION: 1. Splenomegaly. Normal hepatopedal portal venous flow 2. Cholelithiasis. No sonographic evidence for cholecystitis Interpreted and Authenticated by: Elijah Gonzalez 02/20/22
--- NOTE | 2022-02-20 19:09 | Emergency Department Note ---
Course Vital Signs Vital signs: Vital Signs Temperature 36.6 C 02/20/22 13:50 Pulse Rate 101 H 02/20/22 13:50 Respiratory Rate 16 02/20/22 13:50 Blood Pressure 86/53 02/20/22 13:50 Pulse Oximetry (%) 94 02/20/22 13:50 Temperature 36.6 C 02/20/22 13:50 Pulse Rate 97 H 02/20/22 20:46 Respiratory Rate 16 02/20/22 13:50 Blood Pressure 134/75 02/20/22 20:46 Pulse Oximetry (%) 96 02/20/22 20:46 MDM MDM Narrative Medical decision making narrative: Narrative: Patient seen and evaluated by Dr. Stockton, please refer to his note for full details, signed out to me awaiting admission pending chest x-ray and right upper quadrant ultrasound. Chest x-ray no acute findings Right upper quadrant ultrasound some splenomegaly, cholelithiasis no evidence of cholecystitis Spoke with Dr. Mathur, will admit. Lab Data Result diagrams: 02/20/22 14:50 02/20/22 14:50 Labs: Lab Results 02/20/22 02/20/22 02/20/22 Range/Units 14:50 14:50 14:50 WBC 4.5 (4.5-11.0) K/mcL RBC 3.04 L (3.59-5.38) M/mcL Hgb 8.0 L (11.2-15.7) g/dL Hct 24.9 L (34.1-44.9) % MCV 81.9 (80.0-100.0) fL MCH 26.3 (26.0-34.0) pg MCHC 32.1 (31.0-36.0) g/dL RDW 17.2 H (11.5-14.5) % Plt Count 116 L (140-440) K/mcL MPV 10.2 (7.4-10.4) fL Neut % (Auto) 78.9 H (38.0-78.0) % Lymph % (Auto) 14.9 L (15.5-49.0) % Ness % (Auto) 5.6 (1.0-12.0) % Eos % (Auto) 0.4 (0.0-7.0) % Baso % (Auto) 0.2 (0.0-2.0) % Lymph # (Auto) 0.67 L (1.50-4.80) K/mcL Ness # (Auto) 0.25 (0.10-0.90) K/mcL Eos # (Auto) 0.02 (0.00-0.70) K/mcL Baso # (Auto) 0.01 (0.00-0.30) K/mcL Absolute Neutrophils 3.54 (1.80-8.00) K/mcL Haptoglobin (30-200) mg/dL Sodium 127 L (133-145) mmol/L Potassium 4.4 (3.3-5.1) mmol/L Chloride 92 L (96-108) mmol/L Carbon Dioxide 17 L (22-30) mmol/L Anion Gap 18.0 H (8.0-16.0) BUN 32 H (8-23) mg/dL Creatinine 1.4 H (0.6-1.1) mg/dL GFR Calculation 35 Glucose 91 (70-105) mg/dL Calcium 9.8 (8.6-10.4) mg/dL Total Bilirubin 3.1 H (0.1-1.0) mg/dL Direct Bilirubin (<0.3) mg/dL GGT 33 (5-36) U/L AST 58 H (<32) U/L ALT 32 (<40) U/L Alkaline Phosphatase 212 H (39-117) U/L Lactate Dehydrogenase (135-225) U/L Total Creatine Kinase (24-170) U/L C-Reactive Protein (0.03-0.80) mg/dL Total Protein 5.5 L (5.9-8.4) gm/dL Albumin 2.3 L (3.2-5.2) gm/dL Globulin 3.2 (2.2-3.7) gm/dL Albumin/Globulin Ratio 0.7 L (1.0-2.3) TSH (0.27-5.01) uIU/mL 02/20/22 Range/Units 20:17 WBC (4.5-11.0) K/mcL RBC (3.59-5.38) M/mcL Hgb (11.2-15.7) g/dL Hct (34.1-44.9) % MCV (80.0-100.0) fL MCH (26.0-34.0) pg MCHC (31.0-36.0) g/dL RDW (11.5-14.5) % Plt Count (140-440) K/mcL MPV (7.4-10.4) fL Neut % (Auto) (38.0-78.0) % Lymph % (Auto) (15.5-49.0) % Ness % (Auto) (1.0-12.0) % Eos % (Auto) (0.0-7.0) % Baso % (Auto) (0.0-2.0) % Lymph # (Auto) (1.50-4.80) K/mcL Ness # (Auto) (0.10-0.90) K/mcL Eos # (Auto) (0.00-0.70) K/mcL Baso # (Auto) (0.00-0.30) K/mcL Absolute Neutrophils (1.80-8.00) K/mcL Haptoglobin 169 (30-200) mg/dL Sodium (133-145) mmol/L Potassium (3.3-5.1) mmol/L Chloride (96-108) mmol/L Carbon Dioxide (22-30) mmol/L Anion Gap (8.0-16.0) BUN (8-23) mg/dL Creatinine (0.6-1.1) mg/dL GFR Calculation Glucose (70-105) mg/dL Calcium (8.6-10.4) mg/dL Total Bilirubin (0.1-1.0) mg/dL Direct Bilirubin 2.6 H (<0.3) mg/dL GGT (5-36) U/L AST (<32) U/L ALT (<40) U/L Alkaline Phosphatase (39-117) U/L Lactate Dehydrogenase 411 H (135-225) U/L Total Creatine Kinase 21 L (24-170) U/L C-Reactive Protein 22.20 H (0.03-0.80) mg/dL Total Protein (5.9-8.4) gm/dL Albumin (3.2-5.2) gm/dL Globulin (2.2-3.7) gm/dL Albumin/Globulin Ratio (1.0-2.3) TSH 4.53 (0.27-5.01) uIU/mL Discharge Plan Patient/Caregiver Discharge Instructions Pt seen by [employer] APPRENTICE/PA only: No Clinical Impression: Acute hyponatremia, Anemia, Acute kidney injury, Acute dehydration, Acute gastrointestinal bleeding, Hyperbilirubinemia Patient Disposition: Xfer As Inpt ([facility]) Condition: Serious Follow up with: Jatinder Boateng MD [Primary Care Provider] - Prescriptions: No Action pantoprazole 40 mg tablet,delayed release (DR/EC) 40 mg PO BID Qty: 60 1RF celecoxib [Celebrex] 100 mg capsule 100 mg PO BID Qty: 60 1RF triamcinolone acetonide 0.5 % cream 1 applic topical TID Qty: 15 3RF hydroxyzine HCl 25 mg tablet 25 mg PO QID PRN (Reason: itching) Qty: 120 0RF multivitamin Tablet 1 tab PO QAM 0RF quetiapine 25 mg Tablet 12.5 mg PO HS Qty: 30 1RF sennosides [Senna Lax] 8.6 mg Tablet 2 tab PO HS Qty: 30 0RF lactulose 10 gram/15 mL solution 20 g PO QDAY PRN (Reason: constipation) Qty: 237 0RF lisinopril 10 mg tablet 10 mg PO QDAY Qty: 30 2RF
--- NOTE | 2022-02-20 20:12 | Internal Med History&Physical ---
HPI History of Present Illness Patient information: Note initiated : 02/20/22 at 8:00 pm Service Date, if different from initiated Date: [] Patient: Sole Peñaloza 81 y/o F admitted on for Weakness. Chief Complaint: [] History of present illness: Ms. Guevara is a 81 year old F presents to the ED with increasing weakness and lethargy. Brought in by her daughter. Admitted on February 10 for a couple days. At that time she had been ill for couple months with vague symptoms. 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 He was anemic and this was eventually felt to be related to iron deficiency anemia and is followed up with Dr. Avendaño. She has had poor sleep. Since discharge the daughter says the patient is declined. She is becoming increasingly weak lethargic poor appetite nausea not eating well or drinking well. She has had continued work-up outpatient. She had iron transfusion yesterday. And a blood transfusion that was scheduled tomorrow but she received today in the ED. She has had a diffuse morbilliform rash that the daughter recalls was noticed when she arrived the first time to the ED. She does not know if the rash preceded the ER visit or if it started occurring in the ED. Patient denies any headache fever chills chest pain stomach pain just has nausea malaise weakness poor appetite. No melena or tarry stools. She had a colonoscopy in 2019. Came to ED for abdominal pain on February [address] a of the chest and CT abdomen pelvis as well as well as thoracic and cervical spine MRI. The MRI is just showed degenerative joint along the spine and some disc protrusion but no acute findings. The CT abdomen pelvis showed no acute disease, did find cholelithiasis and some hepatomegaly. The CTA of the chest was unremarkable other than some subsegmental atelectasis. She is also had extremely poor sleep. Review of Systems: Pertinent positives as above. Denies headache/fever/chills/chest or abdominal pain/cough/dyspnea/diarrhea. Remaining 10 point review of system reviewed negative PFSH PFSH All Active Problems (Updated 02/20/22 @ 17:37 by Elvin Stockton MD) Acute hyponatremia (Acute) Anemia (Acute) Acute kidney injury (Acute) Acute dehydration (Acute) Acute gastrointestinal bleeding (Acute) Hyperbilirubinemia (Acute) Guaiac positive stools (Acute) Costochondral chest pain (Acute) Chronic iron deficiency anemia (Acute) Pruritic rash (Acute) Elevated ferritin level (Acute) Left lower quadrant abdominal pain (Acute) Abdominal pain (Acute) Insomnia (Acute) Chronic cerebral ischemia (Acute) Transaminitis (Acute) Hyponatremia (Acute) Iron deficiency anemia (Acute) Spondylosis (Chronic) Spondylosis without myelopathy or radiculopathy, lumbar region (Chronic) Lumbosacral spondylosis (Chronic) Anemia (Chronic) Acute hyponatremia (Chronic) Low back pain (Chronic) Lumbar radiculopathy (Chronic) Lumbar stenosis with neurogenic claudication (Chronic) Chronic pain (Chronic) Skin mole (Chronic) 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) Diverticulosis (Chronic) Hypertension (Chronic) Seasonal allergies (Chronic) Osteopenia (Chronic) Chronic back pain (Chronic) Pain in joint of left hip (Chronic) Osteoarthritis, knee (Chronic) Medical History Acute hyponatremia Anemia Chronic back pain Chronic cerebral ischemia Chronic pain Diverticulosis Elevated ferritin level Hypertension Hyponatremia Insomnia Iron deficiency anemia Left lower quadrant abdominal pain Low back pain Lumbar radiculopathy Lumbar stenosis with neurogenic claudication Lumbosacral spondylosis Neoplasm of uncertain behavior of skin Osteoarthritis, knee Osteopenia Pain in joint of left hip Pruritic rash Seasonal allergies Skin mole Trunk Spondylosis Spondylosis without myelopathy or radiculopathy, lumbar region Transaminitis Surgical History History of colon surgery (~09/2020) Removed 12 inches of bowel History of lumpectomy of both breasts (~2001) History of partial knee replacement Bilateral 2010 and 2014 Family History Father Cancer Heart disease Brother Arthritis Diabetes Cancer Pancreatic Mother Arthritis Diabetes Sister Arthritis Social History marital status: education level: high school occupational status: retired smoking status: Former smoker alcohol intake frequency: does not drink substance use type: does not use additional history: Used tobacco products for two years, quitting in 1959. MEDS/ALLERGIES Home Medications and Allergies Home Medications Medication Instructions Recorded Confirmed Type multivitamin 1 tab PO QAM 02/09/22 02/20/22 History lactulose 10 gram/15 mL oral 20 g (30 mL) PO QDAY PRN #237 ml 02/11/22 02/20/22 Rx solution lisinopril 10 mg tablet 10 mg PO QDAY #30 tab 02/11/22 02/20/22 Rx quetiapine 25 mg tablet 12.5 mg PO HS #30 tab 02/11/22 02/20/22 Rx sennosides 8.6 mg tablet (Senna 2 tab PO HS #30 tab 02/11/22 02/20/22 Rx Lax) celecoxib 100 mg capsule (Celebrex) 100 mg PO BID #60 cap 02/18/22 02/20/22 Rx hydroxyzine HCl 25 mg tablet 25 mg PO QID PRN #120 tab 02/18/22 02/20/22 Rx pantoprazole 40 mg tablet,delayed 40 mg PO BID #60 tab 02/18/22 02/20/22 Rx release triamcinolone acetonide 0.5 % 1 applic TOPICAL TID #15 g 02/18/22 02/20/22 Rx topical cream Allergies Allergy/AdvReac Type Severity Reaction Status Date / Time duloxetine Allergy Mild Rash Verified 02/20/22 13:50 fentanyl Allergy Mild rash Verified 02/20/22 13:50 tramadol Allergy Mild Rash Verified 02/20/22 13:50 Amoxicillin AdvReac Mild Fatigued Verified 02/20/22 13:50 codeine AdvReac Mild Confusion Verified 02/20/22 13:50 EXAM Constitutional Vitals: Temp Pulse Resp BP Pulse Ox 97.9 F 99 H 16 124/75 94 02/20/22 13:50 02/20/22 19:53 02/20/22 13:50 02/20/22 19:53 02/20/22 19:53 Exam: General: Awake, appears exhausted Eyes/N/T: EOMI, PERRL, dry MM Head/Neck: neck supple, normocephalic atraumatic CV: RRR, No murmurs, normal s1/s2 Pulm: Clear b/l, no wheezing/rhonchi/rales Abd: soft, nontender, +BS x4 Ext: no clubbing/cyanosis/edema Neuro: Alert, no focal deficits, moves all extremities, CN 2-12 grossly intact, symmetrical strength b/l upper/lower, sensations intact b/l upper/lower Skin: warm/dry DATA Data Completed and Pending Labs: Labs from last 24 hours 02/20/22 02/20/22 02/20/22 14:50 14:50 14:50 WBC 4.5 RBC 3.04 L Hgb 8.0 L Hct 24.9 L MCV 81.9 MCH 26.3 MCHC 32.1 RDW 17.2 H Plt Count 116 L MPV 10.2 Neut % (Auto) 78.9 H Lymph % (Auto) 14.9 L [place] % (Auto) 5.6 Eos % (Auto) 0.4 Baso % (Auto) 0.2 Lymph # (Auto) 0.67 L [place] # (Auto) 0.25 Eos # (Auto) 0.02 Baso # (Auto) 0.01 Absolute Neutrophils 3.54 Sodium 127 L Potassium 4.4 Chloride 92 L Carbon Dioxide 17 L Anion Gap 18.0 H BUN 32 H Creatinine 1.4 H GFR Calculation 35 Glucose 91 Calcium 9.8 Total Bilirubin 3.1 H GGT 33 AST 58 H ALT 32 Alkaline Phosphatase 212 H Total Protein 5.5 L Albumin 2.3 L Globulin 3.2 Albumin/Globulin Ratio 0.7 L A/P Narrative A/P Narrative: A: *FTT/generalized decline and weakness/deconditioning: w/u outpt unremarkable except RICKY -has been going on for several months now *Encephalopathy (lethargy) *Hyponatremia, chronic: Had been on HCTZ in the past, unknown if she still taking it *HTN: On lisinopril, unsure if she is still taking the combination lisinopril/HCTZ *severe RICKY: Receiving iron and blood transfusion outpatient -Colonoscopy 2019 *MARY on CKD III: *Volume depletion: *Thrombocytopenia: *chronic LAMBERT's: *Insomnia: *GERD: P: -IVF -f/u renal fxn -hold ACEI/celebrex for mary and low BP, make sure hctz is d/c'd from home meds -monitor sodium -r/o MAHA -check TSH/CPK -monitor H&H, prn transfusion -sleep aids -pt/ot -Home medication reconciliation -ppx: lovenox / home ppi Time Spent With Patient Time: Total time spent is greater than 50% in coordination of care (as documented) at patient's floor/unit and/or counseling patient: Total time spent with greater than 50% in coordination of care (as documented) at patient's floor/unit and/or counseling patient:: Greater than 70 minutes
[2022-02-20] MEDS ORDERED: FAMOTIDINE 20 MG TABLET PO ONE (20:36)
[2022-02-20] MEDS ORDERED: LORATADINE 10 MG TABLET PO ONE (20:36)
[2022-02-20 21:00] LABS: Bilirubin,Direct 2.6 mg/dL (<0.3); C-Reactive Protein 22.2 mg/dL (0.03-0.80); Thyroid Stimulating Hormone 4.53 uIU/mL (0.27-5.01)
[2022-02-20 21:20] LABS: Erythrocyte Sedimentation Rate 15 mm/hr (0-30)
[2022-02-20] MEDS ORDERED: IPRATROPIUM/ALBUTEROL 3 ML AMPUL.NEB NEB PRN (21:31)
[2022-02-20] MEDS ORDERED: ONDANSETRON 4 MG/2 ML VIAL IV PRN (21:31)
[2022-02-20] MEDS ORDERED: MAGNESIUM SULFATE 2 GM/50 ML BAG IV PRN (21:31)
[2022-02-20] MEDS ORDERED: hydrOXYzine 25 MG TABLET PO PRN (21:31)
[2022-02-20] MEDS ORDERED: POLYETHYLENE GLYCOL 3350 17 GM PACKET PO PRN (21:31)
[2022-02-20] MEDS ORDERED: ACETAMINOPHEN 325 MG TABLET PO PRN (21:31)
[2022-02-20] MEDS ORDERED: diphenhydrAMINE 25 MG CAPSULE PO SCH (21:31)
[2022-02-20] MEDS ORDERED: POTASSIUM CHLORIDE 20 MEQ TABLET PO PRN ×2 (21:31)
[2022-02-20] MEDS ORDERED: POTASSIUM CHLORIDE 40 MEQ in DEXTROSE 5% IN WATER 500 ML IV PRN (21:31)
[2022-02-20] MEDS ORDERED: TEMAZEPAM 15 MG CAPSULE PO SCH (21:31)
[2022-02-20] MEDS: MELATONIN 3 MG TABLET PO SCH (22:08)
[2022-02-20] MEDS: SENNOSIDES 1 TABLET PO SCH (22:08)
[2022-02-20] MEDS: PANTOPRAZOLE 40 MG TABLET PO SCH (22:09)
[2022-02-20] MEDS: DOCUSATE SODIUM 100 MG CAPSULE PO SCH (22:09)
[2022-02-20] MEDS: 0.9 % SODIUM CHLORIDE 1,000 ML IV SCH (22:10)
[2022-02-20] MEDS: 0.9 % SODIUM CHLORIDE 10 ML SYRINGE IV SCH (22:11)
[2022-02-20 22:38] LABS: Uric Acid 6.9 mg/dL (2.5-8.0)
[2022-02-20 23:40] LABS: Appearance,Urine Clear (Clear); Bilirubin,Urine Small mg/dL (Negative); Color,Urine Amber; Culture Indicated,Urine No; Glucose,Urine (UA) Negative (Negative); Ketones,Urine 15 mg/dL mg/dL (Negative); Leukocyte Esterase,Urine Small /uL (Negative); Mucus,Urine FEW /hpf; Nitrate,Urine Negative (Negative); Protein,Urine Negative (Negative); Urine Blood Trace-lysed ery/mcL (Negative); Urine Hyaline Cast 9 /lph (0-2); Urine RBC 15 /hpf (0-3); Urine Squamous Epithelial Cell 17 /hpf (0-4); Urine Transitional Epi Cells 1 /hpf (0-2); Urine WBC 35 /hpf (0-4); Urobilinogen,Urine 2.0 E.U./dL mg/dL
[2022-02-21] MEDS: 0.9 % SODIUM CHLORIDE 10 ML SYRINGE IV SCH ×4 (05:09→23:02)
--- NOTE | 2022-02-21 07:08 | EKG ---
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
[2022-02-21 07:28] LABS: Basophils # (Auto) 0.01 K/mcL (0.00-0.30); Basophils % (Auto) 0.2 % (0.0-2.0); Eosinophils # (Auto) 0 K/mcL (0.00-0.70); Eosinophils % (Auto) 0 % (0.0-7.0); Hematocrit 36.9 % (34.1-44.9); Hemoglobin 11.8 g/dL (11.2-15.7); Lymphocytes % (Auto) 13.1 % (15.5-49.0); Mean Cell Volume 82.9 fL (80.0-100.0); Monocytes # (Auto) 0.31 K/mcL (0.10-0.90); Monocytes % (Auto) 5.1 % (1.0-12.0); Neutrophils % (Auto) 81.6 % (38.0-78.0); Platelet Count 98 K/mcL (140-440); RBC 4.45 M/mcL (3.59-5.38); WBC 6.1 K/mcL (4.5-11.0)
[2022-02-21 08:21] LABS: ALT/SGPT 34 U/L (<40); AST/SGOT 64 U/L (<32); Albumin 2.4 gm/dL (3.2-5.2); Albumin/Globulin Ratio 0.7 (1.0-2.3); Alkaline Phosphatase 223 U/L (39-117); Bilirubin,Direct 3.9 mg/dL (<0.3); Bilirubin,Total 4.6 mg/dL (0.1-1.0); Blood Urea Nitrogen 28 mg/dL (8-23); Calcium 9.4 mg/dL (8.6-10.4); Carbon Dioxide 15 mmol/L (22-30); Chloride 97 mmol/L (96-108); Globulin 3.5 gm/dL (2.2-3.7); Glomerular Filtration Rate 43; Glucose 138 mg/dL (70-105); Lactate Dehydrogenase 494 U/L (135-225); Triglycerides 449 mg/dL (<150); Uric Acid 6.4 mg/dL (2.5-8.0)
--- NOTE | 2022-02-21 08:21 | Internal Med Progress Note ---
SUBJECTIVE Subjective Patient information: Note initiated : 02/21/22 at 8:16 am Service Date, if different from initiated Date: [] Patient: Sole Peñaloza 81 y/o F admitted on 02/20/22 for Weakness. Chief Complaint: [] Interval history: History of present illness: Ms. Guevara is a 81 year old F presents to the ED with increasing weakness and lethargy. Brought in by her daughter. Admitted on February 10 for a couple days. At that time she had been ill for couple months with vague symptoms. 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 He was anemic and this was eventually felt to be related to iron deficiency anemia and is followed up with Dr. Avendaño. She has had poor sleep. Since discharge the daughter says the patient is declined. She is becoming increasingly weak lethargic poor appetite nausea not eating well or drinking well. She has had continued work-up outpatient. She had iron transfusion yesterday. And a blood transfusion that was scheduled tomorrow but she received today in the ED. She has had a diffuse morbilliform rash that the daughter recalls was noticed when she arrived the first time to the ED. She does not know if the rash preceded the ER visit or if it started occurring in the ED. Patient denies any headache fever chills chest pain stomach pain just has nausea malaise weakness poor appetite. No melena or tarry stools. She had a colonoscopy in 2019. Came to ED for abdominal pain on February [address] a of the chest and CT abdomen pelvis as well as well as thoracic and cervical spine MRI. The MRI is just showed degenerative joint along the spine and some disc protrusion but no acute findings. The CT abdomen pelvis showed no acute disease, did find cholelithiasis and some hepatomegaly. The CTA of the chest was unremarkable other than some subsegmental atelectasis. She is also had extremely poor sleep. 02/21 Patient states that "maybe" she feels little better. Seems to have a slight more energy than yesterday. at bedside asking about iron infusions that had been ordered by Dr. Boateng. Sodium mildly better. Acidosis noted. Creatinine mildly better. Phosphorus elevated. Bilirubin elevated. Check with nursing about how she slept. Patient denies any headache fever chills nausea or vomiting. Review of Systems: denies headache/fever/chills/nausea/vomiting/chest or abdominal pain/c ough/dyspnea/diarrhea. Otherwise see above. Constitutional Vitals: Vital Signs Temp Pulse Resp BP Pulse Ox 97.8 F 97 H 18 107/51 93 02/21/22 06:40 02/21/22 06:40 02/21/22 06:40 02/21/22 06:40 02/21/22 06:40 Period Temp Pulse Resp BP Sys/Rivera Pulse Ox Last 24 Hr 97.0 F-97.9 F 90-104 16-18 83-135/46-81 92-96 Intake and Output 02/20/22 02/21/22 02/21/22 21:59 05:59 13:59 Intake Total 1250 625 Output Total 950 225 Balance 1250 -325 -225 Weight 71.668 kg Intake & Output: Intake & Output 02/20/22 02/21/22 02/21/22 21:59 05:59 13:59 Intake Total 1250 625 Output Total 950 225 Balance 1250 -325 -225 Weight 71.668 kg Intake: IV 1000 Sodium Chloride 0.9% 1,000 ml @ 1000 Wide Open IV BOLUS ONE Rx#: [id number] Oral 300 Blood Product 250 325 Output: Void Amount 950 225 Other: Urine Appearance Clear Urine Color Dark Yellow Light Kimberli Urine Odor Normal Exam: General: Awake, not acute distress Eyes/N/T: EOMI, Head/Neck: neck supple, CV: RRR, No murmurs, Pulm: Clear b/l, no wheezing/rhonchi/rales Abd: soft, nontender, +BS x4 Ext: no clubbing/cyanosis, trace b/l LE edema Neuro: Alert, no focal deficits, moves all extremities, Skin: warm/dry OBJ DATA Labs CBC & Chem 7: 02/21/22 05:58 02/21/22 05:58 Labs: Abnormal Lab Results 02/21/22 02/21/22 02/20/22 05:58 05:58 22:58 RBC Hgb Hct RDW 17.0 H Plt Count 98 L Neut % (Auto) 81.6 H Lymph % (Auto) 13.1 L Lymph # (Auto) 0.80 L Sodium Chloride Carbon Dioxide Anion Gap BUN Creatinine Total Bilirubin Direct Bilirubin AST Alkaline Phosphatase Lactate Dehydrogenase Total Creatine Kinase C-Reactive Protein Total Protein Albumin Albumin/Globulin Ratio Procalcitonin 1.08 H Urine Ketones 15 mg/dl A Urine Occult Blood Trace-lysed A Urine Bilirubin Small A Urine Urobilinogen 2.0 e.u./dl A Ur Leukocyte Esterase Small A Urine RBC 15 H Urine WBC 35 H Ur Squamous Epith Cells 17 H Hyaline Casts 9 H Urine Mucus Few A Ur Random Creatinine 02/20/22 02/20/22 02/20/22 20:17 18:30 14:50 RBC Hgb Hct RDW Plt Count Neut % (Auto) Lymph % (Auto) Lymph # (Auto) Sodium 127 L Chloride 92 L Carbon Dioxide 17 L Anion Gap 18.0 H BUN 32 H Creatinine 1.4 H Total Bilirubin 3.1 H Direct Bilirubin 2.6 H AST 58 H Alkaline Phosphatase 212 H Lactate Dehydrogenase 411 H Total Creatine Kinase 21 L C-Reactive Protein 22.20 H Total Protein 5.5 L Albumin 2.3 L Albumin/Globulin Ratio 0.7 L Procalcitonin Urine Ketones Urine Occult Blood Urine Bilirubin Urine Urobilinogen Ur Leukocyte Esterase Urine RBC Urine WBC Ur Squamous Epith Cells Hyaline Casts Urine Mucus Ur Random Creatinine 217.9 H 02/20/22 14:50 RBC 3.04 L Hgb 8.0 L Hct 24.9 L RDW 17.2 H Plt Count 116 L Neut % (Auto) 78.9 H Lymph % (Auto) 14.9 L Lymph # (Auto) 0.67 L Sodium Chloride Carbon Dioxide Anion Gap BUN Creatinine Total Bilirubin Direct Bilirubin AST Alkaline Phosphatase Lactate Dehydrogenase Total Creatine Kinase C-Reactive Protein Total Protein Albumin Albumin/Globulin Ratio Procalcitonin Urine Ketones Urine Occult Blood Urine Bilirubin Urine Urobilinogen Ur Leukocyte Esterase Urine RBC Urine WBC Ur Squamous Epith Cells Hyaline Casts Urine Mucus Ur Random Creatinine Meds: Medications Acetaminophen (Acetaminophen 325 Mg Tablet) 650 mg PO Q6HP PRN; Protocol PRN Reason: Per Pain Protocol/Fever > 101 Albuterol/Ipratropium (Ipratropium/Albuterol 3 Ml Ampul.Neb) 3 ml NEB Q4HP PRN PRN Reason: Shortness Of Breath Diphenhydramine HCl (Diphenhydramine 25 Mg Capsule) 25 mg PO HS [facility] Last Admin: 02/20/22 22:09 Dose: Not Given Documented by: Docusate Sodium (Docusate Sodium 100 Mg Capsule) 100 mg PO BID [facility] Last Admin: 02/20/22 22:09 Dose: 100 mg Documented by: Enoxaparin Sodium (Enoxaparin 40 Mg/0.4 Ml Syringe) 40 mg SQ DAILY [facility] Hydroxyzine HCl (Hydroxyzine 25 Mg Tablet) 25 mg PO QID PRN PRN Reason: itching Potassium Chloride 40 meq/ (Dextrose) 520 mls @ 130 mls/hr IV UD PRN PRN Reason: Potassium < 3 Magnesium Sulfate (Magnesium Sulfate) 2 gm in 50 mls @ 50 mls/hr IV UD PRN PRN Reason: Magnesium </= 1.6 Sodium Chloride (Sodium Chloride 0.9%) 1,000 mls @ 100 mls/hr IV .Q10H [facility] Stop: 02/21/22 17:30 Last Admin: 02/20/22 22:10 Dose: 100 mls/hr Documented by: Melatonin (Melatonin 3 Mg Tablet) 6 mg PO QHS [facility] Last Admin: 02/20/22 22:08 Dose: 6 mg Documented by: Ondansetron HCl (Ondansetron 4 Mg/2 Ml Vial) 4 mg IV Q4HP PRN PRN Reason: Nausea And Vomiting Pantoprazole Sodium (Pantoprazole 40 Mg Tablet) 40 mg PO BID [facility] Last Admin: 02/20/22 22:09 Dose: 40 mg Documented by: Polyethylene Glycol (Polyethylene Glycol 3350 17 Gm Packet) 17 gm PO DAILYP PRN PRN Reason: Constipation Potassium Chloride (Potassium Chloride 20 Meq Tablet) 40 meq PO UD PRN PRN Reason: Potssium is 3-3.5 Potassium Chloride (Potassium Chloride 20 Meq Tablet) 40 meq PO UD PRN PRN Reason: Potassium < 3 Senna (Sennosides 1 Tablet) 2 tab PO HS [facility] Last Admin: 02/20/22 22:08 Dose: 2 tab Documented by: Sodium Chloride (0.9 % Sodium Chloride 10 Ml Syringe) 10 ml IV Q8 [facility] Last Admin: 02/21/22 05:09 Dose: Not Given Documented by: Triamcinolone Acetonide (Triamcinolone Crm 0.5% Tube 15gm) 1 dose TOPICAL TIDP PRN PRN Reason: pruritis A/P Narrative A/P Narrative: A: *FTT/generalized decline and weakness/deconditioning: w/u outpt unremarkable except RICKY -has been going on for several months now *Encephalopathy (lethargy): *Hyponatremia, chronic: Had been on HCTZ in the past, unknown if she still taking it -improved with IVF *HTN: On lisinopril, unsure if she is still taking the combination lisinopril/HCTZ *severe RICKY: Receiving iron and blood transfusion outpatient recently -Colonoscopy 2019 -no markers yet to suggest hemolytic anemia -s/p PRBC (02/20) *Met acidosis: *MARY on CKD III: mild improvement thus far *Volume depletion: *Thrombocytopenia: monitor *Hyperbilirubinemia: -GB unremarkable except for stones *chronic LAMBERT's: *Insomnia: *GERD: P: -IVF -f/u renal fxn -hold ACEI/celebrex for mary and low BP, make sure hctz is d/c'd from home meds -monitor sodium -r/o MAHA -monitor H&H, prn transfusion -check lactate -elevated PCT, but no identified source of infection, f/u BC -MRCP -sleep aids -pt/ot -ppx: lovenox / home ppi Time Spent With Patient Time: Total time spent is greater than 50% in coordination of care (as documented) at patient's floor/unit and/or counseling patient: Total time spent with greater than 50% in coordination of care (as documented) at patient's floor/unit and/or counseling patient:: 35 - 50 minutes QUALITY VTE Deep Vein Thrombosis/Pulmonary Embolism Present on Admission: No
[2022-02-21] MEDS ORDERED: ENOXAPARIN 40 MG/0.4 ML SYRINGE SQ SCH (09:00)
[2022-02-21] MEDS: PANTOPRAZOLE 40 MG TABLET PO SCH ×2 (10:27→20:46)
[2022-02-21] MEDS: DOCUSATE SODIUM 100 MG CAPSULE PO SCH ×2 (10:27→20:46)
[2022-02-21] MEDS ORDERED: LACTATED RINGERS 1,000 ML IV ONE (10:32)
[2022-02-21] MEDS: 0.9 % SODIUM CHLORIDE 1,000 ML IV SCH ×2 (10:32→13:35)
[2022-02-21] MEDS ORDERED: IRON SUCROSE COMPLEX 200 MG in 0.9 % SODIUM CHLORIDE 100 ML IV ONE (13:00)
[2022-02-21] MEDS ORDERED: SODIUM BICARBONATE 50 MEQ/50 ML VIAL IV ONE ×2 (13:34→19:59)
[2022-02-21] MEDS ORDERED: SODIUM BICARBONATE VIAL 50 MEQ in EMPTYBAG 0 ML IV SCH (13:45)
[2022-02-21] MEDS ORDERED: EMPTYBAG IV SCH (13:45)
[2022-02-21] MEDS ORDERED: SODIUM BICARBONATE IV SCH (13:45)
[2022-02-21] MEDS ORDERED: LACTATED RINGERS 1,000 ML IV SCH (13:45)
[2022-02-21] MEDS ORDERED: SODIUM BICARBONATE VIAL 50 MEQ in DEXTROSE 5% IN WATER 100 ML IV SCH (13:50)
[2022-02-21 14:42] LABS: INR 1.4 (0.9-1.1); Prothrombin Time 17.5 sec (11.9-14.5)
--- NOTE | 2022-02-21 15:03 | Magnetic Resonance Report ---
INDICATION: hyperbilirubinemai, COMPARISON: Abdomen ultrasound performed yesterday. CT abdomen pelvis 14 Feb 2022. TECHNIQUE: Multiplanar multi sequential MR imaging of the abdomen magnetic resonance cholangiopancreatography protocol. Limitations: Motion artifact. FINDINGS: Lung bases reveal tiny layering pleural effusions.The spleen measures 14 x 8 16 cm. No splenic mass. No intrahepatic mass. Gallbladder unremarkable for bladder wall thickening or pericholecystic fluid. Small 8 mm gallstone approximates the neck of the gallbladder without gallbladder distention. The distal common bile duct is normal in course and caliber. Distal common bile duct measures 4-5 mm. Within the limitations of motion artifact no definitive filling defect within the bile duct duct. IMPRESSION: No MRCP evidence of cholecystitis or choledocholithiasis. Significant splenomegaly. Interpreted and Authenticated by: Jamel Grissom M.D. 02/21/22
[2022-02-21] MEDS: PIPERACILLIN SODIUM/TAZOBACTAM 3.375 GM in DEXTROSE 5% IN WATER 50 ML IV SCH ×3 (15:35→23:52)
[2022-02-21] MEDS: SODIUM BICARBONATE 650 MG TABLET PO SCH ×2 (16:06→20:46)
[2022-02-21 16:39] LABS: Anisocytosis 1+ (None Seen); Band Neutrophils % 3 % (0-10); Lymphocytes % 5 % (15-49); Monocytes % (Manual) 2 % (1-12); Platelet Estimate DECREASED (Normal); Polychromasia 1+ (None Seen); RBC Morphology ABNORMAL (Normal); Segmented Neutrophils % 90 % (38-78)
--- NOTE | 2022-02-21 17:05 | Procedure Note ---
PROC Central Line Placement Right IJ: Consent obtained: verbal consent and written consent Date of Procedure: 02/21/22 Time out performed: Yes Patient placed on monitor/pulse ox: Yes MD prep: mask, sterile gown, sterile gloves and cap Central line prep: 2% Chlorhexidine scrub Local anesthesia used: lidocaine 1% Amount of anesthesia used (mls): 3 Ultrasound used for placement: Yes Central line lumen inserted: quad and 16 cm Post procedure: sutured in place, good blood return, all ports aspirated, flushed, capped and sterile dressing applied Patient tolerated procedure: well Complications: none Additional comments: Poor peripheral access and need for additional IV access chest x-ray ordered for placement confirmation
--- NOTE | 2022-02-21 17:21 | XRay Report ---
INDICATION: Central Line Placement TECHNIQUE: AP portable upright chest x-ray COMPARISON: Previous chest x-ray dated 02/20/2022 FINDINGS:Interval placement of right central venous catheter. Tip is in the right atrium Lungs:Lungs are negative. No focal pulmonary parenchymal infiltrate or mass Heart, vascular:No significant cardiomegaly. Pulmonary vascularity is normal. No pulmonary edema or pulmonary congestion Mediastinum, miguelina:No mediastinal widening. No hilar mass Pleura:No pleural fluid. No pleural-based mass or calcification. No pleural effusion or pneumothorax Skeletal:Negative. IMPRESSION: 1. Right central venous catheter with its tip in the right atrium. 2. No right pneumothorax Interpreted and Authenticated by: Elijah Gonzalez 02/21/22
[2022-02-21] MEDS ORDERED: HALOPERIDOL LACTATE 5 MG/ML VIAL IV PRN (18:57)
[2022-02-21] MEDS: LACTATED RINGERS 1,000 ML IV SCH ×4 (19:08→23:33)
--- NOTE | 2022-02-21 19:39 | Event Note ---
Event Note Event Note: 30 minutes Critical Care time spent reviewing labs and imaging and further bedside evaluation and exam of the patient. Peripheral smear without any red cell fragment, does demonstrate pancytopenia. No teardrop or target cells. Bands are mildly increased. Platelets mildly decreased. ESR low but CRP elevated. Elevated bilirubin and elevated lactate at 5. MRCP unremarkable except for splenomegaly. Blood cultures obtained trying to find a source of possible infection. Patient denies any abdominal pain chest pain or focal pain. Afebrile. The concern for decline given the elevated lactate. Transferred to ICU of monitor closely. Fluid boluses being obtained. Further imaging being obtained. Monitor urine output closely and check CVP's.
[2022-02-21 19:57] LABS: Appearance,Urine HAZY (Clear); Bilirubin,Urine Negative (Negative); Color,Urine Yellow; Culture Indicated,Urine No; Glucose,Urine (UA) Negative (Negative); Ketones,Urine Negative (Negative); Leukocyte Esterase,Urine 500 /uL (Negative); Mucus,Urine FEW /hpf; Nitrate,Urine Negative (Negative); Protein,Urine Negative (Negative); Specific Gravity,Urine 1.015 (1.000-1.035); Urine Blood 0.03 mg/dL (Negative); Urine Hyaline Cast 1 /lph (0-2); Urine RBC 17 /hpf (0-3); Urine Squamous Epithelial Cell 8 /hpf (0-4); Urine WBC 22 /hpf (0-4)
[2022-02-21] MEDS ORDERED: IOPAMIDOL 100 ML BOTTLE IV ONE (20:04)
[2022-02-21] MEDS ORDERED: SODIUM BICARBONATE 50 MEQ/50 ML VIAL ONE (20:23)
[2022-02-21] MEDS: DOXEPIN 10 MG CAPSULE PO SCH (20:45)
[2022-02-21] MEDS: SENNOSIDES 1 TABLET PO SCH (20:46)
[2022-02-21] MEDS: MELATONIN 3 MG TABLET PO SCH (20:46)
[2022-02-21] MEDS ORDERED: QUEtiapine 25 MG TABLET PO SCH (21:00)
[2022-02-21] MEDS ORDERED: TEMAZEPAM 15 MG CAPSULE PO SCH (21:00)
[2022-02-22] MEDS: LACTATED RINGERS 1,000 ML IV SCH ×7 (01:46→18:43)
[2022-02-22] MEDS: PIPERACILLIN SODIUM/TAZOBACTAM 3.375 GM in DEXTROSE 5% IN WATER 50 ML IV SCH ×4 (05:41→23:55)
[2022-02-22] MEDS: 0.9 % SODIUM CHLORIDE 10 ML SYRINGE IV SCH ×5 (05:42→20:24)
[2022-02-22 06:33] LABS: ABG Methemoglobin 0.2 % (0.4-1.5); Total Hemoglobin 10.4 gm/Dl (12.0-15.0); VBG Base Excess -4 (-2-3); VBG HCO3 20.6 mmol/L (24.0-28.0); VBG Oxygen Saturation 86.5 % (40.0-70.0); VBG PCO2 34.2 mmHg (41.0-51.0); VBG PO2 70.3 mmHg (25.0-40.0); VBG Total CO2 21.6 mmol/L (25.0-29.0)
[2022-02-22 06:53] LABS: INR 1.3 (0.9-1.1); Prothrombin Time 17.1 sec (11.9-14.5)
[2022-02-22 07:01] LABS: ALT/SGPT 27 U/L (<40); AST/SGOT 58 U/L (<32); Albumin 1.8 gm/dL (3.2-5.2); Albumin/Globulin Ratio 0.8 (1.0-2.3); Alkaline Phosphatase 166 U/L (39-117); Bilirubin,Direct 4.2 mg/dL (<0.3); Bilirubin,Total 4.5 mg/dL (0.1-1.0); Blood Urea Nitrogen 16 mg/dL (8-23); Calcium 8.7 mg/dL (8.6-10.4); Carbon Dioxide 18 mmol/L (22-30); Chloride 98 mmol/L (96-108); Globulin 2.3 gm/dL (2.2-3.7); Glomerular Filtration Rate 47; Glucose 77 mg/dL (70-105); Lactate Dehydrogenase 343 U/L (135-225); Phosphorous 2.7 mg/dL (2.5-4.5); Triglycerides 380 mg/dL (<150); Uric Acid 3.6 mg/dL (2.5-8.0)
--- NOTE | 2022-02-22 07:20 | Cat Scan Report ---
INDICATION: Doctor order. Weakness. Hyponatremia COMPARISON: Previous CT scan dated 02/14/2022. Previous abdominal ultrasound dated 02/20/2022 TECHNIQUE: Axial images were obtained through the chest,abdomen and pelvis. Sagittally and coronally reformatted images. 80ml Isovue 370 injected intravenously. Oral contrast material was not administered FINDINGS: Examination was initially interpreted by [facility] Chest CT: Lungs:No focal pulmonary parenchymal infiltrates. No calcified or noncalcified pulmonary parenchymal nodule. There is no honeycombing. No interlobular septal thickening. No significant centrilobular or paraseptal emphysema Mediastinum:No pathologic mediastinal adenopathy. No hilar mass. Thoracic aorta is normal without aneurysmal dilatation Heart:No significant cardiomegaly. No pericardial effusion Pleura:No pleural fluid. No pleural-based mass. No pleural calcifications Axilla, supraclavicular regions, chest wall:No pathologic axillary or supraclavicular adenopathy Musculoskeletal:Negative thoracic spine. No compression fractures. No lytic lesions. No paraspinal mass Abdomen/Pelvis: Liver:Negative liver. No focal intrahepatic mass. Liver contour is smooth. There is no ascites Gallbladder, bilary:Gallbladder is abnormal. Cholelithiasis was demonstrated on previous ultrasound. Gallbladder wall is slightly indistinct and there is pericholecystic inflammatory change. Appearance is consistent with cholecystitis. Follow-up ultrasound recommended. No dilated intra or extrahepatic bile ducts. Spleen:Again demonstrated is splenomegaly. Spleen measures 15.5 x 15.9 x 6.0 cm. Splenic parenchyma is heterogeneous. Hematologic malignancy is possible. Pancreas:No pancreatic mass. No peripancreatic abnormality Adrenal glands:Negative Kidneys,ureters,bladder:No solid renal mass. No hydronephrosis. No obstructing or nonobstructing calculi. No hydroureter. No ureteral calculus. There is a Bain catheter within the urinary bladder Gastrointestinal:There is an anastomotic suture line within the sigmoid colon consistent with partial colectomy. Colon is otherwise negative. No diverticulitis. No detectable colonic mass Negative small bowel. No mechanical small bowel obstruction. No bowel wall thickening. No focal abnormality. Negative stomach and duodenum. No focal abnormality. Appendix: The appendix is not well visualized. No evidence for appendicitis Vascular:There are calcifications of the abdominal aorta. No abdominal aortic aneurysm. There is calcification of the origins of the celiac trunk and superior mesenteric artery. There is no stenosis. Lymphatic:No pathologic retroperitoneal or mesenteric adenopathy Mesentery, peritoneum:There is a small amount of free intraperitoneal fluid. Etiology is not certain. There is no intra-abdominal abscess. There is no pneumoperitoneum. Reproductive:Uterus is anteflexed. Endometrium measures 8 mm. This is prominent in this 81-year-old patient. There is no detectable mass. Adnexa are negative. No ovarian mass identified. Musculoskeletal:Degenerative disc disease at L4-5 and L5-S1. No lumbar compression fractures. Sacrum is negative. No insufficiency fracture. Pelvis is negative. There is no hip fracture There is no anterior abdominal wall or inguinal hernia. There are small gas bubbles in the subcutaneous fat in the lower left anterior abdominal wall. There is may be secondary to prior injections. There is no soft tissue hematoma or detectable mass IMPRESSION: 1. Negative chest CT 2. Splenomegaly. Hematologic malignancy is possible 3. Cholelithiasis. Gallbladder wall is somewhat indistinct and there is probable pericholecystic inflammatory change. Cholecystitis is possible. Follow-up ultrasound recommended 4. Free intraperitoneal fluid within the pelvis. No intra-abdominal abscess 5. Mildly prominent endometrium for age 6. Previous partial colectomy. No acute colonic abnormality The exam was performed using radiation dose optimization techniques including, but not limited to, automated exposure control, adjustment of the mA and/or kV according to patient size and use of iterative reconstruction technique. Interpreted and Authenticated by: Elijah Gonzlaez 02/22/22
[2022-02-22 07:31] LABS: Hematocrit 28.6 % (34.1-44.9); Hemoglobin 9.3 g/dL (11.2-15.7); Mean Cell Volume 83.9 fL (80.0-100.0); Mean Corpuscular HGB Conc 32.5 g/dL (31.0-36.0); Mean Platelet Volume 9.2 fL (7.4-10.4); Platelet Count 64 K/mcL (140-440); RBC 3.41 M/mcL (3.59-5.38); Red Cell Distribution Width 17.5 % (11.5-14.5)
[2022-02-22] MEDS ORDERED: SODIUM BICARBONATE 50 MEQ/50 ML VIAL IV ONE (07:53)
--- NOTE | 2022-02-22 08:11 | Internal Med Progress Note ---
SUBJECTIVE Subjective Patient information: Note initiated : 02/22/22 at 7:57 am Service Date, if different from initiated Date: [] Patient: Sole Peñaloza 81 y/o F admitted on 02/20/22 for Weakness. Chief Complaint: [] Interval history: History of present illness: Ms. Guevara is a 81 year old F presents to the ED with increasing weakness and lethargy. Brought in by her daughter. Admitted on February 10 for a couple days. At that time she had been ill for couple months with vague symptoms. 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 He was anemic and this was eventually felt to be related to iron deficiency anemia and is followed up with Dr. Avendaño. She has had poor sleep. Since discharge the daughter says the patient is declined. She is becoming increasingly weak lethargic poor appetite nausea not eating well or drinking well. She has had continued work-up outpatient. She had iron transfusion yesterday. And a blood transfusion that was scheduled tomorrow but she received today in the ED. She has had a diffuse morbilliform rash that the daughter recalls was noticed when she arrived the first time to the ED. She does not know if the rash preceded the ER visit or if it started occurring in the ED. Patient denies any headache fever chills chest pain stomach pain just has nausea malaise weakness poor appetite. No melena or tarry stools. She had a colonoscopy in 2019. Came to ED for abdominal pain on February [address] a of the chest and CT abdomen pelvis as well as well as thoracic and cervical spine MRI. The MRI is just showed degenerative joint along the spine and some disc protrusion but no acute findings. The CT abdomen pelvis showed no acute disease, did find cholelithiasis and some hepatomegaly. The CTA of the chest was unremarkable other than some subsegmental atelectasis. She is also had extremely poor sleep. 02/21 Patient states that "maybe" she feels little better. Seems to have a slight more energy than yesterday. at bedside asking about iron infusions that had been ordered by Dr. Boateng. Sodium mildly better. Acidosis noted. Creatinine mildly better. Phosphorus elevated. Bilirubin elevated. Check with nursing about how she slept. Patient denies any headache fever chills nausea or vomiting. 02/22 Patient altered this morning, confused. Sounds like she was able to get a little better sleep last night. Agitated this morning. at bedside. Urine output poor. Blood pressure adequate. Bolusing lactated Ringer's to a CVP of 8. Lactate mildly improved but still quite high at 8. Leukopenia present thrombocytopenia present, anemia. INR 1.3, better than yesterday 1.4. Nothing growing in the blood or urine yet. Sodium stable. Acidosis proving. Creatinine improved. Phos better. Patient still quite ill and now more altered. Multiple imagings modalities unremarkable for infection except for GB u/s showing signs of cholecystitis. CRP/pct even improving. Review of Systems: denies headache/fever/chills/nausea/vomiting/chest or abdominal pain/cough/dyspnea/diarrhea. Otherwise see above. Constitutional Vitals: Vital Signs Temp Pulse Resp BP Pulse Ox 96.7 F L 103 H 20 116/49 94 02/22/22 07:05 02/22/22 07:05 02/22/22 07:05 02/22/22 07:05 02/22/22 07:05 Period Temp Pulse Resp BP Sys/Rivera Pulse Ox Last 24 Hr 96.1 F-97.9 F 90-111 16-29 74-141/29-84 92-100 Intake and Output 02/21/22 02/22/22 02/22/22 21:59 05:59 13:59 Intake Total 2840 3750 50 Output Total 775 Balance 2840 2975 50 Weight 74.344 kg Intake & Output: Intake & Output 02/21/22 02/22/22 02/22/22 21:59 05:59 13:59 Intake Total 2840 3750 50 Output Total 775 Balance 2840 2975 50 Weight 74.344 kg Intake: IV 2360 3050 50 Venofer 200 mg In Sodium 110 Chloride 0.9% 100 ml @ 200 mls/ hr IV ONCE ONE Rx#:[id number] Lactated Ringers 1,000 ml @ 500 2000 3000 mls/hr IV .Q2H [facility] Rx#: [id number] Zosyn 3.375 gm In Dextrose 5% 100 50 50 in Water 50 ml @ 100 mls/hr IV Q6H [facility] Rx#:[id number] Sodium Bicarbonate Vial 50 Meq 150 In Dextrose 5% in Water 100 ml @ 100 mls/hr IV 1345 [facility] Rx#: [id number] Oral 480 700 Output: Urine Catheter Amount 775 Other: Urine Appearance Clear Uretheral (Bain) Clear Clear Urine Color Dark Yellow Uretheral (Bain) Light Kimberli Light Kimberli Urine Odor Normal Stool Size Small Stool Color Brown Stool Consistency Soft Formed Exam: General: Altered, agitated Eyes/N/T: EOMI, scleral icterus Head/Neck: neck supple, CV: RRR, No murmurs, Pulm: Clear b/l, no wheezing/rhonchi/rales Abd: soft, nontender, +BS x4 Ext: no clubbing/cyanosis, pedal edema Neuro: Altered and confused not following commands, partially moves eyes to commands, spontaneously moves all extremities, Skin: warm/dry OBJ DATA Labs CBC & Chem 7: 02/22/22 06:14 02/22/22 06:14 Labs: Abnormal Lab Results 02/22/22 02/22/22 02/22/22 06:15 06:14 06:14 WBC RBC Hgb Hct RDW Plt Count Neut % (Auto) Lymph % (Auto) Lymph # (Auto) Seg Neutrophils % Lymphocytes % Platelet Estimate RBC Morphology Polychromasia Anisocytosis PT 17.1 H INR 1.3 H ABG Methemoglobin 0.2 L VBG pCO2 34.2 L VBG pO2 70.3 H VBG HCO3 20.6 L VBG Total CO2 21.6 L VBG O2 Saturation 86.5 H VBG Base Excess -4 L VBG Lactic Acid Carboxyhemoglobin 7.5 H Total Hemoglobin 10.4 L Sodium Chloride Carbon Dioxide Anion Gap BUN Creatinine Glucose Phosphorus Total Bilirubin Direct Bilirubin AST Alkaline Phosphatase Lactate Dehydrogenase Total Creatine Kinase C-Reactive Protein Total Protein Albumin Albumin/Globulin Ratio Triglycerides Vitamin B12 Procalcitonin 0.74 H Urine Appearance Urine Ketones Urine Occult Blood Urine Bilirubin Urine Urobilinogen Ur Leukocyte Esterase Urine RBC Urine WBC Ur Squamous Epith Cells Hyaline Casts Urine Mucus Ur Random Creatinine 02/22/22 02/22/22 02/22/22 06:14 06:14 06:13 WBC 3.0 L RBC 3.41 L Hgb 9.3 L Hct 28.6 L RDW 17.5 H Plt Count 64 L Neut % (Auto) Lymph % (Auto) Lymph # (Auto) Seg Neutrophils % Lymphocytes % Platelet Estimate RBC Morphology Polychromasia Anisocytosis PT INR ABG Methemoglobin VBG pCO2 VBG pO2 VBG HCO3 VBG Total CO2 VBG O2 Saturation VBG Base Excess VBG Lactic Acid Carboxyhemoglobin Total Hemoglobin Sodium 132 L Chloride Carbon Dioxide 18 L Anion Gap BUN Creatinine Glucose Phosphorus Total Bilirubin 4.5 H Direct Bilirubin 4.2 H AST 58 H Alkaline Phosphatase 166 H Lactate Dehydrogenase 343 H Total Creatine Kinase C-Reactive Protein 13.90 H Total Protein 4.1 L Albumin 1.8 L Albumin/Globulin Ratio 0.8 L Triglycerides 380 H Vitamin B12 1718.0 H Procalcitonin Urine Appearance Urine Ketones Urine Occult Blood Urine Bilirubin Urine Urobilinogen Ur Leukocyte Esterase Urine RBC Urine WBC Ur Squamous Epith Cells Hyaline Casts Urine Mucus Ur Random Creatinine 02/22/22 02/21/22 02/21/22 06:13 19:00 17:23 WBC RBC Hgb Hct RDW Plt Count Neut % (Auto) Lymph % (Auto) Lymph # (Auto) Seg Neutrophils % Lymphocytes % Platelet Estimate RBC Morphology Polychromasia Anisocytosis PT INR ABG Methemoglobin VBG pCO2 VBG pO2 VBG HCO3 VBG Total CO2 VBG O2 Saturation VBG Base Excess VBG Lactic Acid 8.0 H* 9.4 H* Carboxyhemoglobin Total Hemoglobin Sodium Chloride Carbon Dioxide Anion Gap BUN Creatinine Glucose Phosphorus Total Bilirubin Direct Bilirubin AST Alkaline Phosphatase Lactate Dehydrogenase Total Creatine Kinase C-Reactive Protein Total Protein Albumin Albumin/Globulin Ratio Triglycerides Vitamin B12 Procalcitonin Urine Appearance Hazy A Urine Ketones Urine Occult Blood Urine Bilirubin Urine Urobilinogen 4.0 A Ur Leukocyte Esterase 500 A Urine RBC 17 H Urine WBC 22 H Ur Squamous Epith Cells 8 H Hyaline Casts Urine Mucus Few A Ur Random Creatinine 02/21/22 02/21/22 02/21/22 12:31 12:31 08:51 WBC RBC Hgb Hct RDW Plt Count Neut % (Auto) Lymph % (Auto) Lymph # (Auto) Seg Neutrophils % Lymphocytes % Platelet Estimate RBC Morphology Polychromasia Anisocytosis PT 17.5 H INR 1.4 H ABG Methemoglobin VBG pCO2 VBG pO2 VBG HCO3 VBG Total CO2 VBG O2 Saturation VBG Base Excess VBG Lactic Acid 7.0 H* 5.1 H* Carboxyhemoglobin Total Hemoglobin Sodium Chloride Carbon Dioxide Anion Gap BUN Creatinine Glucose Phosphorus Total Bilirubin Direct Bilirubin AST Alkaline Phosphatase Lactate Dehydrogenase Total Creatine Kinase C-Reactive Protein Total Protein Albumin Albumin/Globulin Ratio Triglycerides Vitamin B12 Procalcitonin Urine Appearance Urine Ketones Urine Occult Blood Urine Bilirubin Urine Urobilinogen Ur Leukocyte Esterase Urine RBC Urine WBC Ur Squamous Epith Cells Hyaline Casts Urine Mucus Ur Random Creatinine 02/21/22 02/21/22 02/21/22 05:58 05:58 05:58 WBC RBC Hgb Hct RDW 17.0 H Plt Count 98 L Neut % (Auto) 81.6 H Lymph % (Auto) 13.1 L Lymph # (Auto) 0.80 L Seg Neutrophils % 90 H Lymphocytes % 5 L Platelet Estimate Decreased A RBC Morphology Abnormal A Polychromasia 1+ A Anisocytosis 1+ A PT INR ABG Methemoglobin VBG pCO2 VBG pO2 VBG HCO3 VBG Total CO2 VBG O2 Saturation VBG Base Excess VBG Lactic Acid Carboxyhemoglobin Total Hemoglobin Sodium 132 L Chloride Carbon Dioxide 15 L Anion Gap 20.0 H BUN 28 H Creatinine 1.2 H Glucose 138 H Phosphorus 5.0 H Total Bilirubin 4.6 H Direct Bilirubin 3.9 H AST 64 H Alkaline Phosphatase 223 H Lactate Dehydrogenase 494 H Total Creatine Kinase C-Reactive Protein Total Protein Albumin 2.4 L Albumin/Globulin Ratio 0.7 L Triglycerides 449 H Vitamin B12 Procalcitonin Urine Appearance Urine Ketones Urine Occult Blood Urine Bilirubin Urine Urobilinogen Ur Leukocyte Esterase Urine RBC Urine WBC Ur Squamous Epith Cells Hyaline Casts Urine Mucus Ur Random Creatinine 02/21/22 02/21/22 02/20/22 05:58 05:57 22:58 WBC RBC Hgb Hct RDW Plt Count Neut % (Auto) Lymph % (Auto) Lymph # (Auto) Seg Neutrophils % Lymphocytes % Platelet Estimate RBC Morphology Polychromasia Anisocytosis PT INR ABG Methemoglobin VBG pCO2 VBG pO2 VBG HCO3 VBG Total CO2 VBG O2 Saturation VBG Base Excess VBG Lactic Acid Carboxyhemoglobin Total Hemoglobin Sodium Chloride Carbon Dioxide Anion Gap BUN Creatinine Glucose Phosphorus Total Bilirubin Direct Bilirubin AST Alkaline Phosphatase Lactate Dehydrogenase Total Creatine Kinase C-Reactive Protein 25.90 H Total Protein Albumin Albumin/Globulin Ratio Triglycerides Vitamin B12 Procalcitonin 1.08 H Urine Appearance Urine Ketones 15 mg/dl A Urine Occult Blood Trace-lysed A Urine Bilirubin Small A Urine Urobilinogen 2.0 e.u./dl A Ur Leukocyte Esterase Small A Urine RBC 15 H Urine WBC 35 H Ur Squamous Epith Cells 17 H Hyaline Casts 9 H Urine Mucus Few A Ur Random Creatinine 02/20/22 02/20/22 02/20/22 20:17 18:30 14:50 WBC RBC Hgb Hct RDW Plt Count Neut % (Auto) Lymph % (Auto) Lymph # (Auto) Seg Neutrophils % Lymphocytes % Platelet Estimate RBC Morphology Polychromasia Anisocytosis PT INR ABG Methemoglobin VBG pCO2 VBG pO2 VBG HCO3 VBG Total CO2 VBG O2 Saturation VBG Base Excess VBG Lactic Acid Carboxyhemoglobin Total Hemoglobin Sodium 127 L Chloride 92 L Carbon Dioxide 17 L Anion Gap 18.0 H BUN 32 H Creatinine 1.4 H Glucose Phosphorus Total Bilirubin 3.1 H Direct Bilirubin 2.6 H AST 58 H Alkaline Phosphatase 212 H Lactate Dehydrogenase 411 H Total Creatine Kinase 21 L C-Reactive Protein 22.20 H Total Protein 5.5 L Albumin 2.3 L Albumin/Globulin Ratio 0.7 L Triglycerides Vitamin B12 Procalcitonin Urine Appearance Urine Ketones Urine Occult Blood Urine Bilirubin Urine Urobilinogen Ur Leukocyte Esterase Urine RBC Urine WBC Ur Squamous Epith Cells Hyaline Casts Urine Mucus Ur Random Creatinine 217.9 H 02/20/22 14:50 WBC RBC 3.04 L Hgb 8.0 L Hct 24.9 L RDW 17.2 H Plt Count 116 L Neut % (Auto) 78.9 H Lymph % (Auto) 14.9 L Lymph # (Auto) 0.67 L Seg Neutrophils % Lymphocytes % Platelet Estimate RBC Morphology Polychromasia Anisocytosis PT INR ABG Methemoglobin VBG pCO2 VBG pO2 VBG HCO3 VBG Total CO2 VBG O2 Saturation VBG Base Excess VBG Lactic Acid Carboxyhemoglobin Total Hemoglobin Sodium Chloride Carbon Dioxide Anion Gap BUN Creatinine Glucose Phosphorus Total Bilirubin Direct Bilirubin AST Alkaline Phosphatase Lactate Dehydrogenase Total Creatine Kinase C-Reactive Protein Total Protein Albumin Albumin/Globulin Ratio Triglycerides Vitamin B12 Procalcitonin Urine Appearance Urine Ketones Urine Occult Blood Urine Bilirubin Urine Urobilinogen Ur Leukocyte Esterase Urine RBC Urine WBC Ur Squamous Epith Cells Hyaline Casts Urine Mucus Ur Random Creatinine Meds: Medications Acetaminophen (Acetaminophen 325 Mg Tablet) 650 mg PO Q6HP PRN; Protocol PRN Reason: Per Pain Protocol/Fever > 101 Albuterol/Ipratropium (Ipratropium/Albuterol 3 Ml Ampul.Neb) 3 ml NEB Q4HP PRN PRN Reason: Shortness Of Breath Docusate Sodium (Docusate Sodium 100 Mg Capsule) 100 mg PO BID [facility] Last Admin: 02/21/22 20:46 Dose: 100 mg Documented by: Doxepin HCl (Doxepin 10 Mg Capsule) 10 mg PO [facility] Last Admin: 02/21/22 20:45 Dose: 10 mg Documented by: Enoxaparin Sodium (Enoxaparin 40 Mg/0.4 Ml Syringe) 40 mg SQ DAILY [facility] Last Admin: 02/21/22 10:29 Dose: 40 mg Documented by: Haloperidol Lactate (Haloperidol Lactate 5 Mg/Ml Vial) 2 mg IV Q2HP PRN PRN Reason: Agitation Hydroxyzine HCl (Hydroxyzine 25 Mg Tablet) 25 mg PO QID PRN PRN Reason: itching Potassium Chloride 40 meq/ (Dextrose) 520 mls @ 130 mls/hr IV UD PRN PRN Reason: Potassium < 3 Magnesium Sulfate (Magnesium Sulfate) 2 gm in 50 mls @ 50 mls/hr IV UD PRN PRN Reason: Magnesium </= 1.6 Piperacillin Sod/Tazobactam (Sod 3.375 gm/ Dextrose) 50 mls @ 100 mls/hr IV Q6H [facility]; Protocol Last Infusion: 02/22/22 06:53 Dose: Infused Documented by: Lactated Ringer's (Lactated Ringers) 1,000 mls @ 500 mls/hr IV .Q2H [facility] Last Admin: 02/22/22 07:51 Dose: 500 mls/hr Documented by: Melatonin (Melatonin 3 Mg Tablet) 6 mg PO QHS [facility] Last Admin: 02/21/22 20:46 Dose: 6 mg Documented by: Ondansetron HCl (Ondansetron 4 Mg/2 Ml Vial) 4 mg IV Q4HP PRN PRN Reason: Nausea And Vomiting Pantoprazole Sodium (Pantoprazole 40 Mg Tablet) 40 mg PO BID [facility] Last Admin: 02/21/22 20:46 Dose: 40 mg Documented by: Polyethylene Glycol (Polyethylene Glycol 3350 17 Gm Packet) 17 gm PO DAILYP PRN PRN Reason: Constipation Potassium Chloride (Potassium Chloride 20 Meq Tablet) 40 meq PO UD PRN PRN Reason: Potssium is 3-3.5 Potassium Chloride (Potassium Chloride 20 Meq Tablet) 40 meq PO UD PRN PRN Reason: Potassium < 3 Senna (Sennosides 1 Tablet) 2 tab PO [facility] Last Admin: 02/21/22 20:46 Dose: 2 tab Documented by: Sodium Chloride (0.9 % Sodium Chloride 10 Ml Syringe) 10 ml IV Q8 [facility] Last Admin: 02/22/22 05:42 Dose: 10 ml Documented by: Sodium Chloride (0.9 % Sodium Chloride 10 Ml Syringe) 10 ml IV Q12 [facility] Last Admin: 02/21/22 23:02 Dose: Not Given Documented by: Triamcinolone Acetonide (Triamcinolone Crm 0.5% Tube 15gm) 1 dose TOPICAL TIDP PRN PRN Reason: pruritis ABG Interpretation ABG results: 02/22/22 06:14 ABG Methemoglobin 0.2 L VBG pH 7.40 VBG pCO2 34.2 L VBG pO2 70.3 H VBG HCO3 20.6 L VBG Total CO2 21.6 L VBG O2 Saturation 86.5 H VBG Base Excess -4 L A/P Narrative A/P Narrative: A: *FTT/generalized decline and weakness/deconditioning: w/u outpt unremarkable except RICKY -has been going on for several months now *Encephalopathy, Metabolic: confusion/delerium worsened *Hyponatremia, chronic: Had been on HCTZ in the past, unknown if she still taking it -improved with IVF *HTN: On lisinopril, unsure if she is still taking the combination lisinopril/HCTZ *severe RICKY: Receiving iron and blood transfusion outpatient recently -Colonoscopy 2019 -no markers yet to suggest hemolytic anemia, no schistocytes on smear, normal haptoglobin -s/p PRBC (02/20) *Lactic Acidosis, Severe/Met acidosis: unknown etiology, elevated pct, ?Cholecystitis per GB us -VBG pH ok -CT c/a/p neg, mrcp neg, BC neg thus far -?Gallbladder *Splenomegaly: *Pancytopenia: *MARY on CKD III: improving *Volume depletion: *Thrombocytopenia: monitor *Hyperbilirubinemia, direct: -GB unremarkable except for stones *chronic LAMBERT's: *Insomnia: *GERD: P: -discuss with Heme/Onc if gb us neg -Empiric Abx given elevated PCT(now improving)/Lactate, pending BC -IVF -monitor renal fxn & UOP -f/u lactate -hold ACEI/celebrex for mary and low BP, make sure hctz is d/c'd from home meds -GB u/s -monitor sodium -monitor H&H, prn transfusion -sleep aids -dietary -pt/ot -ppx: lovenox switch to fondaparinux (HIT labs pending, but doubt)/ home ppi Time Spent With Patient Time: Total time spent is greater than 50% in coordination of care (as documented) at patient's floor/unit and/or counseling patient: Critical Care Time: Yes Total Critical Care Time: 70 QUALITY VTE Deep Vein Thrombosis/Pulmonary Embolism Present on Admission: No
--- NOTE | 2022-02-22 08:59 | Ultrasound Report ---
INDICATION: ?cholecystitis TECHNIQUE: Grayscale and color flow Doppler spectral imaging. Limited evaluation of the gallbladder COMPARISON: Previous abdominal ultrasound dated 02/20/2022. Previous CT scan dated 02/21/2022 FINDINGS: There are multiple gallstones. There is an 8 mm stone in the gallbladder neck. This does not appear to move although this patient is not mobile. Gallbladder wall measures 4 mm, increased since 02/20/2022. There is trace pericholecystic fluid. Davidson's sign was not assessed as this patient was not very responsive. Common bile duct measures 4 mm. No intrahepatic bile duct dilatation IMPRESSION: 1. Cholelithiasis including 8 mm calculus which may be impacted in the gallbladder neck 2. No gallbladder wall thickening and trace pericholecystic fluid consistent with cholecystitis Interpreted and Authenticated by: Elijah Gonzalez 02/22/22
[2022-02-22] MEDS ORDERED: FONDAPARINUX SODIUM 2.5 MG/0.5 ML SYRINGE SQ SCH (09:00)
[2022-02-22 09:07] LABS: Anisocytosis 1+ (None Seen); Band Neutrophils % 10 % (0-10); Lymphocytes % 18 % (15-49); Monocytes % (Manual) 4 % (1-12); Platelet Estimate DECREASED (Normal); RBC Morphology ABNORMAL (Normal); Segmented Neutrophils % 68 % (38-78)
[2022-02-22] MEDS ORDERED: HALOPERIDOL LACTATE 5 MG/ML VIAL IV ONE (09:54)
[2022-02-22] MEDS ORDERED: VANCOMYCIN PER PHARMACY IV SCH (10:20)
[2022-02-22] MEDS: DOCUSATE SODIUM 100 MG CAPSULE PO SCH ×2 (10:29→20:14)
[2022-02-22] MEDS: PANTOPRAZOLE 40 MG TABLET PO SCH ×2 (10:30→20:15)
[2022-02-22] MEDS: VANCOMYCIN 1,000 MG in 0.9 % SODIUM CHLORIDE 250 ML IV SCH (11:04)
[2022-02-22 11:16] LABS: Anisocytosis 1+ (None Seen); Band Neutrophils % 10 % (0-10); Eosinophils % (Manual) 1 % (0-7); Lymphocytes % 22 % (15-49); Monocytes % (Manual) 3 % (1-12); Platelet Estimate DECREASED (Normal); RBC Morphology ABNORMAL (Normal); Segmented Neutrophils % 64 % (38-78)
--- NOTE | 2022-02-22 12:43 | General Surgery Consult Note ---
HPI Data of Consult Patient: known to practice within the last 3 years Consult date: 02/22/22 Requesting physician: Tony Mathur Primary Care Provider: Jatinder Boateng MD Family Provider: jess Consult Narrative Chief complaint: General malaise and fatigue; progressive lactic acidosis Reason for consult: Rule out cholecystitis History of present illness: This is an 81-year-old female who has a very complicated history. She has been evaluated since 09 Feb 2022 with a 2-month history of general weakness and malaise. She also had acute onset of altered vision associated with headache and decreased appetite with failure to thrive. She was evaluated on 09 February and was noted to be anemic with a hemoglobin of 8.4. Her white blood count at that time was 8.2. I was asked to see her previously because of left upper quadrant abdominal pain. At that time her abdominal pain was actually related to point tenderness of her left lower costal cartilages without evidence of peritoneal or flank tenderness. It was noted that her white count which was initially 8.2 decreased to 4.8/2 days and her platelets which were 207,000 on 11 February dropped 216,000 x 20 February. She also developed rising BUN and creatinine suggesting volume depletion. On this admission her platelets have dropped further to 98 and her bilirubin has started to rise. She had evidence of lactate of 5 but her abdomen has been benign the whole time. MRCP was normal except for mild spleno megaly. She had an elevated CRP up to 22. Today it was noted that her lactate was 8 and her white count was down to 3. Follow-up CT with said to represent cholelithiasis with cholecystitis and they stone in the neck of the gallbladder. Her platelets have dropped further to 64,000 and her bilirubin has increased to 4.5. Examination of her abdomen today is totally benign and she does not have a ny epigastric or right upper quadrant tenderness guarding or rebound. In spite of the radiographic findings she does not have evidence of an acute abdomen. It is difficult to communicate with the patient because she has had significantly altered mental status and does not respond appropriately to questioning. She has been aggressively hydrated and her BUN and creatinine are slowly improving though her urine output is not increasing. cc:: CC: Tony Mathur Constitutional Constitutional: Present anorexia, fatigue, lethargy, malaise and weakness EENT Eyes: Present blurry vision, change in vision, decreased night vision and other visual disturbances Ears: Present decreased hearing Nose, mouth and throat: Present abnormal hearing; Absent hoarseness or lip swelling Cardiovascular Cardiovascular: Present lightheadedness and pedal edema; Absent chest pain, dyspnea on exertion or rapid heart rate Respiratory Respiratory: Absent cough or pain on inspirtation Gastrointestinal Gastrointestinal: Present heartburn; Absent abdominal pain, change in stool character, dysphagia, hematemesis, hematochezia, melena, nausea or vomiting Musculoskeletal Musculoskeletal: Present arthralgias, back pain, muscle cramps and myalgias; Absent neck pain Integumentary Additional comments: Diffuse slightly raised marginated erythematous rash of the trunk and neck extremities Neurological Neurological: Present abnormal speech, behavioral changes, confusion, dizziness, lack of coordination, restless legs and weakness Psychiatric Psychiatric: Present abnormal sleep pattern and behavioral changes Hematologic/Lymphatic Hematologic/Lymphatic: Absent easy bleeding, easy bruising or lymphadenopathy Allergic/Immunologic Allergic/Immunologic: Absent tongue swelling, throat swelling, uticaria, wheezing or lip swelling PFSH PFSH All Active Problems (Updated 02/22/22 @ 12:57 by Miesha Avendaño MD) Cholelithiasis and cholecystitis without obstruction (Acute) Acute hyponatremia (Acute) Anemia (Acute) Acute kidney injury (Acute) Acute dehydration (Acute) Acute gastrointestinal bleeding (Acute) Hyperbilirubinemia (Acute) Guaiac positive stools (Acute) Costochondral chest pain (Acute) Chronic iron deficiency anemia (Acute) Pruritic rash (Acute) Elevated ferritin level (Acute) Left lower quadrant abdominal pain (Acute) Abdominal pain (Acute) Insomnia (Acute) Chronic cerebral ischemia (Acute) Transaminitis (Acute) Hyponatremia (Acute) Iron deficiency anemia (Acute) Spondylosis (Chronic) Spondylosis without myelopathy or radiculopathy, lumbar region (Chronic) Lumbosacral spondylosis (Chronic) Anemia (Chronic) Acute hyponatremia (Chronic) Low back pain (Chronic) Lumbar radiculopathy (Chronic) Lumbar stenosis with neurogenic claudication (Chronic) Chronic pain (Chronic) Skin mole (Chronic) 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) Diverticulosis (Chronic) Hypertension (Chronic) Seasonal allergies (Chronic) Osteopenia (Chronic) Chronic back pain (Chronic) Pain in joint of left hip (Chronic) Osteoarthritis, knee (Chronic) Medical History Acute hyponatremia Anemia Chronic back pain Chronic cerebral ischemia Chronic pain Diverticulosis Elevated ferritin level Hypertension Hyponatremia Insomnia Iron deficiency anemia Left lower quadrant abdominal pain Low back pain Lumbar radiculopathy Lumbar stenosis with neurogenic claudication Lumbosacral spondylosis Neoplasm of uncertain behavior of skin Osteoarthritis, knee Osteopenia Pain in joint of left hip Pruritic rash Seasonal allergies Skin mole Trunk Spondylosis Spondylosis without myelopathy or radiculopathy, lumbar region Transaminitis Surgical History History of colon surgery (~09/2020) Removed 12 inches of bowel History of lumpectomy of both breasts (~2001) History of partial knee replacement Bilateral 2010 and 2014 Family History Father Cancer Heart disease Brother Arthritis Diabetes Cancer Pancreatic Mother Arthritis Diabetes Sister Arthritis Social History marital status: education level: high school occupational status: retired smoking status: Former smoker alcohol intake frequency: does not drink substance use type: does not use additional history: Used tobacco products for two years, quitting in 1959. MEDS/ALLERGIES Home Medications and Allergies Home Medications Medication Instructions Recorded Confirmed Type multivitamin 1 tab PO QAM 02/09/22 02/20/22 History lactulose 10 gram/15 mL oral 20 g (30 mL) PO QDAY PRN #237 ml 02/11/22 02/20/22 Rx solution lisinopril 10 mg tablet 10 mg PO QDAY #30 tab 02/11/22 02/20/22 Rx quetiapine 25 mg tablet 12.5 mg PO HS #30 tab 02/11/22 02/20/22 Rx sennosides 8.6 mg tablet (Senna 2 tab PO HS #30 tab 02/11/22 02/20/22 Rx Lax) celecoxib 100 mg capsule (Celebrex) 100 mg PO BID #60 cap 02/18/22 02/20/22 Rx hydroxyzine HCl 25 mg tablet 25 mg PO QID PRN #120 tab 02/18/22 02/20/22 Rx pantoprazole 40 mg tablet,delayed 40 mg PO BID #60 tab 02/18/22 02/20/22 Rx release triamcinolone acetonide 0.5 % 1 applic TOPICAL TID #15 g 02/18/22 02/20/22 Rx topical cream Allergies Allergy/AdvReac Type Severity Reaction Status Date / Time duloxetine Allergy Mild Rash Verified 02/20/22 13:50 fentanyl Allergy Mild rash Verified 02/20/22 13:50 tramadol Allergy Mild Rash Verified 02/20/22 13:50 Amoxicillin AdvReac Mild Fatigued Verified 02/20/22 13:50 codeine AdvReac Mild Confusion Verified 02/20/22 13:50 Physical Examination Vital Signs Vital signs: Temp Pulse Resp BP Pulse Ox 96.4 F L 92 H 18 112/48 95 02/22/22 12:01 02/22/22 12:01 02/22/22 12:01 02/22/22 12:01 02/22/22 12:01 General physical appearance General physical exam: well developed, moderate pain (Complains primarily of back pain) and chronically ill Eyes Eye exam: PERRL and normal ocular movement ENT ENT exam: decreased hearing Head Head exam IM: Present atraumatic, normal inspection and normocephalic Neck Neck exam: no masses, no bruits, trachea midline, no lymphadenopathy and no venous distension Cardiovascular Cardiovascular exam IM: Present RRR, +S1 and +S2; Absent normal rate and rhythm, JVD or tachycardia Respiratory Respiratory exam: normal expansion, normal respiratory effort and clear to auscultation Abdomen Abdomen: Present soft, non tender, bowel sounds (Normal bowel sounds) and distended (Mild distention but soft); Absent guarding Integumentary Integumentary: Present other (Diffuse rash as noted above) Neurologic Neurologic: Present disoriented, confused and memory loss Musculoskeletal Musculoskeletal: Present other (Gait stance can be tested) Psychiatric Psychiatric: Absent oriented to time, oriented to place or memory intact Results Labs Result diagrams: 02/22/22 06:14 02/22/22 06:14 Labs: Abnormal lab results 02/21/22 02/21/22 02/21/22 Range/Units 05:58 12:31 12:31 WBC (4.5-11.0) K/mcL RBC (3.59-5.38) M/mcL Hgb (11.2-15.7) g/dL Hct (34.1-44.9) % RDW (11.5-14.5) % Plt Count (140-440) K/mcL Seg Neutrophils % 90 H (38-78) % Lymphocytes % 5 L (15-49) % Platelet Estimate Decreased A (Normal) RBC Morphology Abnormal A (Normal) Polychromasia 1+ A (None Seen) Anisocytosis 1+ A (None Seen) PT 17.5 H (11.9-14.5) sec INR 1.4 H (0.9-1.1) ABG Methemoglobin (0.4-1.5) % VBG pCO2 (41.0-51.0) mmHg VBG pO2 (25.0-40.0) mmHg VBG HCO3 (24.0-28.0) mmol/L VBG Total CO2 (25.0-29.0) mmol/L VBG O2 Saturation (40.0-70.0) % VBG Base Excess (-2-3) VBG Lactic Acid 7.0 H* (0.5-2.0) mmol/L Carboxyhemoglobin (0.0-1.5) % THgb Total Hemoglobin (12.0-15.0) gm/Dl Sodium (133-145) mmol/L Carbon Dioxide (22-30) mmol/L Total Bilirubin (0.1-1.0) mg/dL Direct Bilirubin (<0.3) mg/dL AST (<32) U/L Alkaline Phosphatase (39-117) U/L Lactate Dehydrogenase (135-225) U/L C-Reactive Protein (0.03-0.80) mg/dL Total Protein (5.9-8.4) gm/dL Albumin (3.2-5.2) gm/dL Albumin/Globulin Ratio (1.0-2.3) Triglycerides (<150) mg/dL Vitamin B12 (232.0-1245.0) pg/mL Procalcitonin (<0.10) ng/mL Urine Appearance (Clear) Urine Urobilinogen mg/dL Ur Leukocyte Esterase (Negative) /uL Urine RBC (0-3) /hpf Urine WBC (0-4) /hpf Ur Squamous Epith Cells (0-4) /hpf Urine Mucus (None) /hpf 02/21/22 02/21/22 02/22/22 Range/Units 17:23 19:00 06:13 WBC (4.5-11.0) K/mcL RBC (3.59-5.38) M/mcL Hgb (11.2-15.7) g/dL Hct (34.1-44.9) % RDW (11.5-14.5) % Plt Count (140-440) K/mcL Seg Neutrophils % (38-78) % Lymphocytes % (15-49) % Platelet Estimate (Normal) RBC Morphology (Normal) Polychromasia (None Seen) Anisocytosis (None Seen) PT (11.9-14.5) sec INR (0.9-1.1) ABG Methemoglobin (0.4-1.5) % VBG pCO2 (41.0-51.0) mmHg VBG pO2 (25.0-40.0) mmHg VBG HCO3 (24.0-28.0) mmol/L VBG Total CO2 (25.0-29.0) mmol/L VBG O2 Saturation (40.0-70.0) % VBG Base Excess (-2-3) VBG Lactic Acid 9.4 H* 8.0 H* (0.5-2.0) mmol/L Carboxyhemoglobin (0.0-1.5) % THgb Total Hemoglobin (12.0-15.0) gm/Dl Sodium (133-145) mmol/L Carbon Dioxide (22-30) mmol/L Total Bilirubin (0.1-1.0) mg/dL Direct Bilirubin (<0.3) mg/dL AST (<32) U/L Alkaline Phosphatase (39-117) U/L Lactate Dehydrogenase (135-225) U/L C-Reactive Protein (0.03-0.80) mg/dL Total Protein (5.9-8.4) gm/dL Albumin (3.2-5.2) gm/dL Albumin/Globulin Ratio (1.0-2.3) Triglycerides (<150) mg/dL Vitamin B12 (232.0-1245.0) pg/mL Procalcitonin (<0.10) ng/mL Urine Appearance Hazy A (Clear) Urine Urobilinogen 4.0 A mg/dL Ur Leukocyte Esterase 500 A (Negative) /uL Urine RBC 17 H (0-3) /hpf Urine WBC 22 H (0-4) /hpf Ur Squamous Epith Cells 8 H (0-4) /hpf Urine Mucus Few A (None) /hpf 02/22/22 02/22/22 02/22/22 Range/Units 06:13 06:14 06:14 WBC 3.0 L (4.5-11.0) K/mcL RBC 3.41 L (3.59-5.38) M/mcL Hgb 9.3 L (11.2-15.7) g/dL Hct 28.6 L (34.1-44.9) % RDW 17.5 H (11.5-14.5) % Plt Count 64 L (140-440) K/mcL Seg Neutrophils % (38-78) % Lymphocytes % (15-49) % Platelet Estimate Decreased A (Normal) RBC Morphology Abnormal A (Normal) Polychromasia (None Seen) Anisocytosis 1+ A (None Seen) PT (11.9-14.5) sec INR (0.9-1.1) ABG Methemoglobin (0.4-1.5) % VBG pCO2 (41.0-51.0) mmHg VBG pO2 (25.0-40.0) mmHg VBG HCO3 (24.0-28.0) mmol/L VBG Total CO2 (25.0-29.0) mmol/L VBG O2 Saturation (40.0-70.0) % VBG Base Excess (-2-3) VBG Lactic Acid (0.5-2.0) mmol/L Carboxyhemoglobin (0.0-1.5) % THgb Total Hemoglobin (12.0-15.0) gm/Dl Sodium 132 L (133-145) mmol/L Carbon Dioxide 18 L (22-30) mmol/L Total Bilirubin 4.5 H (0.1-1.0) mg/dL Direct Bilirubin 4.2 H (<0.3) mg/dL AST 58 H (<32) U/L Alkaline Phosphatase 166 H (39-117) U/L Lactate Dehydrogenase 343 H (135-225) U/L C-Reactive Protein 13.90 H (0.03-0.80) mg/dL Total Protein 4.1 L (5.9-8.4) gm/dL Albumin 1.8 L (3.2-5.2) gm/dL Albumin/Globulin Ratio 0.8 L (1.0-2.3) Triglycerides 380 H (<150) mg/dL Vitamin B12 1718.0 H (232.0-1245.0) pg/mL Procalcitonin (<0.10) ng/mL Urine Appearance (Clear) Urine Urobilinogen mg/dL Ur Leukocyte Esterase (Negative) /uL Urine RBC (0-3) /hpf Urine WBC (0-4) /hpf Ur Squamous Epith Cells (0-4) /hpf Urine Mucus (None) /hpf 02/22/22 02/22/22 02/22/22 Range/Units 06:14 06:14 06:15 WBC (4.5-11.0) K/mcL RBC (3.59-5.38) M/mcL Hgb (11.2-15.7) g/dL Hct (34.1-44.9) % RDW (11.5-14.5) % Plt Count (140-440) K/mcL Seg Neutrophils % (38-78) % Lymphocytes % (15-49) % Platelet Estimate (Normal) RBC Morphology (Normal) Polychromasia (None Seen) Anisocytosis (None Seen) PT 17.1 H (11.9-14.5) sec INR 1.3 H (0.9-1.1) ABG Methemoglobin 0.2 L (0.4-1.5) % VBG pCO2 34.2 L (41.0-51.0) mmHg VBG pO2 70.3 H (25.0-40.0) mmHg VBG HCO3 20.6 L (24.0-28.0) mmol/L VBG Total CO2 21.6 L (25.0-29.0) mmol/L VBG O2 Saturation 86.5 H (40.0-70.0) % VBG Base Excess -4 L (-2-3) VBG Lactic Acid (0.5-2.0) mmol/L Carboxyhemoglobin 7.5 H (0.0-1.5) % THgb Total Hemoglobin 10.4 L (12.0-15.0) gm/Dl Sodium (133-145) mmol/L Carbon Dioxide (22-30) mmol/L Total Bilirubin (0.1-1.0) mg/dL Direct Bilirubin (<0.3) mg/dL AST (<32) U/L Alkaline Phosphatase (39-117) U/L Lactate Dehydrogenase (135-225) U/L C-Reactive Protein (0.03-0.80) mg/dL Total Protein (5.9-8.4) gm/dL Albumin (3.2-5.2) gm/dL Albumin/Globulin Ratio (1.0-2.3) Triglycerides (<150) mg/dL Vitamin B12 (232.0-1245.0) pg/mL Procalcitonin 0.74 H (<0.10) ng/mL Urine Appearance (Clear) Urine Urobilinogen mg/dL Ur Leukocyte Esterase (Negative) /uL Urine RBC (0-3) /hpf Urine WBC (0-4) /hpf Ur Squamous Epith Cells (0-4) /hpf Urine Mucus (None) /hpf 02/22/22 Range/Units 08:29 WBC (4.5-11.0) K/mcL RBC (3.59-5.38) M/mcL Hgb (11.2-15.7) g/dL Hct (34.1-44.9) % RDW (11.5-14.5) % Plt Count (140-440) K/mcL Seg Neutrophils % (38-78) % Lymphocytes % (15-49) % Platelet Estimate Decreased A (Normal) RBC Morphology Abnormal A (Normal) Polychromasia (None Seen) Anisocytosis 1+ A (None Seen) PT (11.9-14.5) sec INR (0.9-1.1) ABG Methemoglobin (0.4-1.5) % VBG pCO2 (41.0-51.0) mmHg VBG pO2 (25.0-40.0) mmHg VBG HCO3 (24.0-28.0) mmol/L VBG Total CO2 (25.0-29.0) mmol/L VBG O2 Saturation (40.0-70.0) % VBG Base Excess (-2-3) VBG Lactic Acid (0.5-2.0) mmol/L Carboxyhemoglobin (0.0-1.5) % THgb Total Hemoglobin (12.0-15.0) gm/Dl Sodium (133-145) mmol/L Carbon Dioxide (22-30) mmol/L Total Bilirubin (0.1-1.0) mg/dL Direct Bilirubin (<0.3) mg/dL AST (<32) U/L Alkaline Phosphatase (39-117) U/L Lactate Dehydrogenase (135-225) U/L C-Reactive Protein (0.03-0.80) mg/dL Total Protein (5.9-8.4) gm/dL Albumin (3.2-5.2) gm/dL Albumin/Globulin Ratio (1.0-2.3) Triglycerides (<150) mg/dL Vitamin B12 (232.0-1245.0) pg/mL Procalcitonin (<0.10) ng/mL Urine Appearance (Clear) Urine Urobilinogen mg/dL Ur Leukocyte Esterase (Negative) /uL Urine RBC (0-3) /hpf Urine WBC (0-4) /hpf Ur Squamous Epith Cells (0-4) /hpf Urine Mucus (None) /hpf Diabetes panel 02/22/22 Range/Units 06:14 Sodium 132 L (133-145) mmol/L Potassium 3.8 (3.3-5.1) mmol/L Chloride 98 (96-108) mmol/L Carbon Dioxide 18 L (22-30) mmol/L BUN 16 (8-23) mg/dL Creatinine 1.1 (0.6-1.1) mg/dL Glucose 77 (70-105) mg/dL Calcium 8.7 (8.6-10.4) mg/dL AST 58 H (<32) U/L ALT 27 (<40) U/L Alkaline Phosphatase 166 H (39-117) U/L Total Protein 4.1 L (5.9-8.4) gm/dL Albumin 1.8 L (3.2-5.2) gm/dL Triglycerides 380 H (<150) mg/dL Calcium panel 02/22/22 Range/Units 06:14 Calcium 8.7 (8.6-10.4) mg/dL Phosphorus 2.7 (2.5-4.5) mg/dL Albumin 1.8 L (3.2-5.2) gm/dL Pituitary panel 02/22/22 Range/Units 06:14 Sodium 132 L (133-145) mmol/L Potassium 3.8 (3.3-5.1) mmol/L Chloride 98 (96-108) mmol/L Carbon Dioxide 18 L (22-30) mmol/L BUN 16 (8-23) mg/dL Creatinine 1.1 (0.6-1.1) mg/dL Glucose 77 (70-105) mg/dL Calcium 8.7 (8.6-10.4) mg/dL Adrenal panel 02/22/22 Range/Units 06:14 Sodium 132 L (133-145) mmol/L Potassium 3.8 (3.3-5.1) mmol/L Chloride 98 (96-108) mmol/L Carbon Dioxide 18 L (22-30) mmol/L BUN 16 (8-23) mg/dL Creatinine 1.1 (0.6-1.1) mg/dL Glucose 77 (70-105) mg/dL Calcium 8.7 (8.6-10.4) mg/dL Total Bilirubin 4.5 H (0.1-1.0) mg/dL AST 58 H (<32) U/L ALT 27 (<40) U/L Alkaline Phosphatase 166 H (39-117) U/L Total Protein 4.1 L (5.9-8.4) gm/dL Albumin 1.8 L (3.2-5.2) gm/dL All other labs normal. A/P Assessment and plan (1) Anemia: Status: Acute (2) Acute kidney injury: Status: Acute (3) Acute dehydration: Status: Acute (4) Hyperbilirubinemia: Status: Acute (5) Costochondral chest pain: Status: Acute (6) Cholelithiasis and cholecystitis without obstruction: Status: Acute (7) Chronic cerebral ischemia: Status: Acute (8) Chronic back pain: Status: Chronic Narrative A/P Narrative: The patient does not have a clinical presentation in her abdomen that will sup port an acute hypoperfusion of her abdominal viscera leading to lactic acidosis The associated pancytopenia possibly may be related to a myelodysplastic syndrome or developing malignancy that can sometimes be associated with acidosis. There is no evidence of acute cholecystitis. In view of the multiplicity of developing problems and her progressive deterioration would suggest that she be transferred to a higher level of care where there is oncologic evaluation available and critical care input can be obtained. She does not have an acute abdomen to explain her clinical condition. Time Spent With Patient Time: Total time spent is greater than 50% in coordination of care (as documented) at patient's floor/unit and/or counseling patient:
[2022-02-22] MEDS: DEXTROSE 5%-LR 1,000 ML IV SCH (13:09)
[2022-02-22] MEDS: THIAMINE 100 MG in 0.9 % SODIUM CHLORIDE 50 ML IV SCH (14:26)
[2022-02-22] MEDS ORDERED: ALBUMIN HUMAN 12.5 GM/50 ML BAG IV ONE ×2 (15:28→21:00)
[2022-02-22] MEDS ORDERED: FUROSEMIDE 40 MG/4 ML VIAL IV ONE ×2 (15:28→21:00)
[2022-02-22] MEDS: HALOPERIDOL LACTATE 5 MG/ML VIAL IV PRN (15:53)
[2022-02-22] MEDS: METHOCARBAMOL 1,000 MG/10 ML VIAL IV PRN (16:40)
[2022-02-22] MEDS ORDERED: METHOCARBAMOL 1,000 MG/10 ML VIAL ONE (16:46)
[2022-02-22] MEDS: ACETAMINOPHEN 650 MG/65 ML BAG IV PRN (17:41)
[2022-02-22] MEDS ORDERED: LACTATED RINGERS 250 ML IV SCH (18:00)
[2022-02-22] MEDS: LIDOCAINE PATCH TOPICAL SCH (18:50)
[2022-02-22] MEDS ORDERED: OLANZapine 10 MG VIAL IM SCH (19:45)
[2022-02-22] MEDS ORDERED: OLANZapine 10 MG VIAL IM ONE (19:51)
[2022-02-22] MEDS: MELATONIN 3 MG TABLET PO SCH (20:14)
[2022-02-22] MEDS: SENNOSIDES 1 TABLET PO SCH (20:15)
[2022-02-22] MEDS: DOXEPIN 10 MG CAPSULE PO SCH (20:15)
[2022-02-22] MEDS: DEXMEDETOMIDINE 400 MCG in PREMIX 1 BAG IV SCH (23:55)
[2022-02-23] MEDS ORDERED: LACTATED RINGERS 250 ML IV ONE (01:09)
[2022-02-23] MEDS: DEXTROSE 5%-LR 1,000 ML IV SCH ×2 (03:50→17:45)
[2022-02-23] MEDS: PIPERACILLIN SODIUM/TAZOBACTAM 3.375 GM in DEXTROSE 5% IN WATER 50 ML IV SCH ×4 (05:35→23:27)
[2022-02-23] MEDS: 0.9 % SODIUM CHLORIDE 10 ML SYRINGE IV SCH ×5 (05:36→20:53)
[2022-02-23 06:21] LABS: ABG Methemoglobin 0 % (0.4-1.5); Total Hemoglobin 10.5 gm/Dl (12.0-15.0); VBG Base Excess -3 (-2-3); VBG HCO3 21.2 mmol/L (24.0-28.0); VBG Oxygen Saturation 81.4 % (40.0-70.0); VBG PCO2 33.5 mmHg (41.0-51.0); VBG PH 7.42 U (7.32-7.42); VBG PO2 51.2 mmHg (25.0-40.0); VBG Total CO2 22.3 mmol/L (25.0-29.0)
[2022-02-23 06:52] LABS: ALT/SGPT 29 U/L (<40); AST/SGOT 61 U/L (<32); Albumin 2.2 gm/dL (3.2-5.2); Alkaline Phosphatase 158 U/L (39-117); Bilirubin,Direct 5.1 mg/dL (<0.3); Bilirubin,Total 5.8 mg/dL (0.1-1.0); Blood Urea Nitrogen 17 mg/dL (8-23); Calcium 9.2 mg/dL (8.6-10.4); Carbon Dioxide 20 mmol/L (22-30); Chloride 100 mmol/L (96-108); Globulin 2.3 gm/dL (2.2-3.7); Glomerular Filtration Rate 39; Glucose 95 mg/dL (70-105); Lactate Dehydrogenase 407 U/L (135-225); Phosphorous 3.1 mg/dL (2.5-4.5); Triglycerides 383 mg/dL (<150); Uric Acid 3.7 mg/dL (2.5-8.0)
[2022-02-23 06:56] LABS: Vancomycin,Random 6.3 ug/mL
[2022-02-23 07:16] LABS: Anisocytosis 1+ (None Seen); Band Neutrophils % 6 % (0-10); Eosinophils % (Manual) 3 % (0-7); Hypochromasia 2+ (None Seen); Lymphocytes % 17 % (15-49); Monocytes % (Manual) 6 % (1-12); Platelet Estimate DECREASED (Normal); RBC Morphology ABNORMAL (Normal); Segmented Neutrophils % 68 % (38-78)
[2022-02-23 07:31] LABS: Hematocrit 28.2 % (34.1-44.9); Hemoglobin 9.3 g/dL (11.2-15.7); Mean Cell Volume 82.5 fL (80.0-100.0); Mean Platelet Volume 9.3 fL (7.4-10.4); Platelet Count 38 K/mcL (140-440); RBC 3.42 M/mcL (3.59-5.38); Red Cell Distribution Width 17.4 % (11.5-14.5); WBC 2.8 K/mcL (4.5-11.0)
[2022-02-23] MEDS: ACETAMINOPHEN 650 MG/65 ML BAG IV PRN ×2 (08:05→14:35)
--- NOTE | 2022-02-23 08:12 | Internal Med Progress Note ---
SUBJECTIVE Subjective Patient information: Note initiated : 02/23/22 at 8:09 am Service Date, if different from initiated Date: [] Patient: Sole Peñaloza 81 y/o F admitted on 02/20/22 for Weakness. Chief Complaint: [] Interval history: History of present illness: Ms. Guevara is a 81 year old F presents to the ED with increasing weakness and lethargy. Brought in by her daughter. Admitted on February 10 for a couple days. At that time she had been ill for couple months with vague symptoms. 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 He was anemic and this was eventually felt to be related to iron deficiency anemia and is followed up with Dr. Avendaño. She has had poor sleep. Since discharge the daughter says the patient is declined. She is becoming increasingly weak lethargic poor appetite nausea not eating well or drinking well. She has had continued work-up outpatient. She had iron transfusion yesterday. And a blood transfusion that was scheduled tomorrow but she received today in the ED. She has had a diffuse morbilliform rash that the daughter recalls was noticed when she arrived the first time to the ED. She does not know if the rash preceded the ER visit or if it started occurring in the ED. Patient denies any headache fever chills chest pain stomach pain just has nausea malaise weakness poor appetite. No melena or tarry stools. She had a colonoscopy in 2019. Came to ED for abdominal pain on February [address] a of the chest and CT abdomen pelvis as well as well as thoracic and cervical spine MRI. The MRI is just showed degenerative joint along the spine and some disc protrusion but no acute findings. The CT abdomen pelvis showed no acute disease, did find cholelithiasis and some hepatomegaly. The CTA of the chest was unremarkable other than some subsegmental atelectasis. She is also had extremely poor sleep. 02/21 Patient states that "maybe" she feels little better. Seems to have a slight more energy than yesterday. at bedside asking about iron infusions that had been ordered by Dr. Boateng. Sodium mildly better. Acidosis noted. Creatinine mildly better. Phosphorus elevated. Bilirubin elevated. Check with nursing about how she slept. Patient denies any headache fever chills nausea or vomiting. 6/4 Patient altered this morning, confused. Sounds like she was able to get a little better sleep last night. Agitated this morning. at bedside. Urine output poor. Blood pressure adequate. Bolusing lactated Ringer's to a CVP of 8. Lactate mildly improved but still quite high at 8. Leukopenia present thrombocytopenia present, anemia. INR 1.3, better than yesterday 1.4. Nothing growing in the blood or urine yet. Sodium stable. Acidosis proving. Creatinine improved. Phos better. Patient still quite ill and now more altered. Multiple imagings modalities unremarkable for infection except for GB u/s showing signs of cholecystitis. CRP/pct even improving. Given the gallbladder rate of potential cholecystitis a discussed case with Dr. Avendaño who evaluated the patient and found a benign abdomen, no Davidson sign. Did not feel that there was acute cholecystitis that was causing these symptoms. Does not believe that there is any bowel ischemia or issues going on. 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 The patient's history and presentation does seem to align with this type of scenario. She has been declining over the past 2 to 3 months including generalized weakness and fatigue and poor appetite, poor sleep, abnormal CBC with anemia and she was getting iron infusions and blood transfusions outpatient. Her CBC has since progressed to pancytopenia. She has a renal insufficiency. And an elevated direct hyperbilirubinemia. Her haptoglobin is within normal limit and there is no schistocytes on smear. The peripheral smear shows microcytic anemia and pancytopenia but no other distinctive results. CT chest abdomen pelvis is unremarkable. No focal pain. Blood cultures thus negative. The only consistent and notable abnormal finding on imaging is Splenomegaly. Most concerning is her worsening Encephalopathy and increasing lactic acidosis, initially 5 then trended up to 9.4 last night, she is down to 8.0 this morning. Urine output is 30-45/hr. Systolic blood pressures have been maintaining mostly in the low 100s-110's, she has had a few in the 90s and a couple systolic 88. CRP elevated and LDH elevated. Because of this trend and unexplained/refractory lactic acidosis and potential for occult hematological malignancy, we have started to reach out to tertiary care centers for hematology/oncology consult and transfer. Talked with several collision repairer oncologist and an vendor management consultant at [facility]. The recommendations from the collision repairer for bone marrow biopsy. then talked with the family. The family were concerned initially before we had this discussion about whether transferring her would be in her best interest and in line with her goals of care. I discussed the current status of the patient and her rapid decline. We care currently aggressively treating her with a broad antibiotics and aggressive IV fluid support monitoring urine output and vitals closely. Hoping that we can turn the her course around, but highly concerned about her status given her trend. Family feels that it would be in her best interest to stay the course here and not subject her to a transfer to a facility that is 2 to 5 hours away with no guarantee of improvement. We will continue current aggressive measures and if she continues to decline or has a rapid decline manifesting an obvious outcome we will transition to comfort care only. 02/23 Patient did require Precedex last night for agitation. Blood pressure did drop so it was a stopped. She did get a few hours of seem to be restfulness. Appears agitated and uncomfortable this morning. Did seem to respond to a dose of albumin with Lasix. Closely monitor urine output. If we cant get her agitation under control then may try Precedex again with Levophed support. Thrombocytopenia worsened today. Hold chemical DVT prophylaxis and will provide SCDs. Elevated bilirubin. CRP and procalcitonin were improving but bumped up mildly today. Review of Systems: Unable to obtain given Encephalopathy Constitutional Vitals: Vital Signs Temp Pulse Resp BP Pulse Ox 96.7 F L 77 18 91/46 96 02/23/22 08:00 02/23/22 08:00 02/23/22 08:00 02/23/22 08:00 02/23/22 08:00 Period Temp Pulse Resp BP Sys/Rivera Pulse Ox Last 24 Hr 93.5 F-98.2 F 70-111 15-32 69-136/38-96 92-97 Intake and Output 02/22/22 02/23/22 02/23/22 21:59 05:59 13:59 Intake Total 833 1305 399 Output Total 990 1260 115 Balance -157 45 284 Weight 80.286 kg Intake & Output: Intake & Output 02/22/22 02/23/22 02/23/22 21:59 05:59 13:59 Intake Total 833 1305 399 Output Total 990 1260 115 Balance -157 45 284 Weight 80.286 kg Intake: IV 833 1305 399 Precedex 400 Mcg/100 ml 5 16 Dextrose 400 Mcg In Premix 1 Bag @ 0.2 MCG/KG/HR 4.014 mls/ hr IV .Q24H [facility] Rx#:[id number] Dextrose 5%-Lactated Ringers 1, 1000 000 ml @ 70 mls/hr IV .[id number] [facility] Rx#:[id number] Lactated Ringers 1,000 ml @ 500 567 250 333 mls/hr IV .Q2H [facility] Rx#: [id number] Zosyn 3.375 gm In Dextrose 5% 50 50 50 in Water 50 ml @ 100 mls/hr IV Q6H [facility] Rx#:[id number] Vitamin B1 100 mg In Sodium 51 Chloride 0.9% 50 ml @ 50 mls/hr IV DAILY [facility] Rx#:[id number] Output: Urine Catheter Amount 990 1260 115 Other: Urine Appearance Clear Clear Clear Uretheral (Bain) Clear Urine Color Pale Dark Yellow Pale Uretheral (Bain) Dark Yellow Urine Odor Normal Exam: General: Altered, agitated Eyes/N/T: EOMI, scleral icterus Head/Neck: neck supple, CV: RRR, No murmurs, Pulm: mild rales at bases, no wheezing Abd: soft, nontender, +BS x4 Ext: no clubbing/cyanosis, b/l LE edema Neuro: Altered and confused not following commands, partially moves eyes to commands, spontaneously moves all extremities, Skin: warm/dry OBJ DATA Labs CBC & Chem 7: 02/23/22 05:52 02/23/22 05:51 Labs: Abnormal Lab Results 02/23/22 02/23/22 02/23/22 05:52 05:52 05:52 WBC 2.8 L RBC 3.42 L Hgb 9.3 L Hct 28.2 L RDW 17.4 H Plt Count 38 L* Neut % (Auto) Lymph % (Auto) Lymph # (Auto) Seg Neutrophils % Lymphocytes % Platelet Estimate Decreased A RBC Morphology Abnormal A Polychromasia Hypochromasia 2+ A Anisocytosis 1+ A PT INR ABG Methemoglobin 0 L VBG pCO2 33.5 L VBG pO2 51.2 H VBG HCO3 21.2 L VBG Total CO2 22.3 L VBG O2 Saturation 81.4 H VBG Base Excess -3 L VBG Lactic Acid Carboxyhemoglobin 5.4 H Total Hemoglobin 10.5 L Sodium Chloride Carbon Dioxide Anion Gap BUN Creatinine Glucose Phosphorus Magnesium Total Bilirubin Direct Bilirubin AST Alkaline Phosphatase Lactate Dehydrogenase Total Creatine Kinase C-Reactive Protein Total Protein Albumin Albumin/Globulin Ratio Triglycerides Vitamin B12 Procalcitonin 0.98 H Urine Appearance Urine Ketones Urine Occult Blood Urine Bilirubin Urine Urobilinogen Ur Leukocyte Esterase Urine RBC Urine WBC Ur Squamous Epith Cells Hyaline Casts Urine Mucus Ur Random Creatinine 02/23/22 02/22/22 02/22/22 05:51 08:29 06:15 WBC RBC Hgb Hct RDW Plt Count Neut % (Auto) Lymph % (Auto) Lymph # (Auto) Seg Neutrophils % Lymphocytes % Platelet Estimate Decreased A RBC Morphology Abnormal A Polychromasia Hypochromasia Anisocytosis 1+ A PT INR ABG Methemoglobin VBG pCO2 VBG pO2 VBG HCO3 VBG Total CO2 VBG O2 Saturation VBG Base Excess VBG Lactic Acid Carboxyhemoglobin Total Hemoglobin Sodium Chloride Carbon Dioxide 20 L Anion Gap 19.0 H BUN Creatinine 1.3 H Glucose Phosphorus Magnesium 1.5 L Total Bilirubin 5.8 H Direct Bilirubin 5.1 H AST 61 H Alkaline Phosphatase 158 H Lactate Dehydrogenase 407 H Total Creatine Kinase C-Reactive Protein 14.80 H Total Protein 4.5 L Albumin 2.2 L Albumin/Globulin Ratio Triglycerides 383 H Vitamin B12 Procalcitonin 0.74 H Urine Appearance Urine Ketones Urine Occult Blood Urine Bilirubin Urine Urobilinogen Ur Leukocyte Esterase Urine RBC Urine WBC Ur Squamous Epith Cells Hyaline Casts Urine Mucus Ur Random Creatinine 02/22/22 02/22/22 02/22/22 06:14 06:14 06:14 WBC RBC Hgb Hct RDW Plt Count Neut % (Auto) Lymph % (Auto) Lymph # (Auto) Seg Neutrophils % Lymphocytes % Platelet Estimate RBC Morphology Polychromasia Hypochromasia Anisocytosis PT 17.1 H INR 1.3 H ABG Methemoglobin 0.2 L VBG pCO2 34.2 L VBG pO2 70.3 H VBG HCO3 20.6 L VBG Total CO2 21.6 L VBG O2 Saturation 86.5 H VBG Base Excess -4 L VBG Lactic Acid Carboxyhemoglobin 7.5 H Total Hemoglobin 10.4 L Sodium 132 L Chloride Carbon Dioxide 18 L Anion Gap BUN Creatinine Glucose Phosphorus Magnesium Total Bilirubin 4.5 H Direct Bilirubin 4.2 H AST 58 H Alkaline Phosphatase 166 H Lactate Dehydrogenase 343 H Total Creatine Kinase C-Reactive Protein 13.90 H Total Protein 4.1 L Albumin 1.8 L Albumin/Globulin Ratio 0.8 L Triglycerides 380 H Vitamin B12 Procalcitonin Urine Appearance Urine Ketones Urine Occult Blood Urine Bilirubin Urine Urobilinogen Ur Leukocyte Esterase Urine RBC Urine WBC Ur Squamous Epith Cells Hyaline Casts Urine Mucus Ur Random Creatinine 02/22/22 02/22/22 02/22/22 06:14 06:13 06:13 WBC 3.0 L RBC 3.41 L Hgb 9.3 L Hct 28.6 L RDW 17.5 H Plt Count 64 L Neut % (Auto) Lymph % (Auto) Lymph # (Auto) Seg Neutrophils % Lymphocytes % Platelet Estimate Decreased A RBC Morphology Abnormal A Polychromasia Hypochromasia Anisocytosis 1+ A PT INR ABG Methemoglobin VBG pCO2 VBG pO2 VBG HCO3 VBG Total CO2 VBG O2 Saturation VBG Base Excess VBG Lactic Acid 8.0 H* Carboxyhemoglobin Total Hemoglobin Sodium Chloride Carbon Dioxide Anion Gap BUN Creatinine Glucose Phosphorus Magnesium Total Bilirubin Direct Bilirubin AST Alkaline Phosphatase Lactate Dehydrogenase Total Creatine Kinase C-Reactive Protein Total Protein Albumin Albumin/Globulin Ratio Triglycerides Vitamin B12 1718.0 H Procalcitonin Urine Appearance Urine Ketones Urine Occult Blood Urine Bilirubin Urine Urobilinogen Ur Leukocyte Esterase Urine RBC Urine WBC Ur Squamous Epith Cells Hyaline Casts Urine Mucus Ur Random Creatinine 02/21/22 02/21/22 02/21/22 19:00 17:23 12:31 WBC RBC Hgb Hct RDW Plt Count Neut % (Auto) Lymph % (Auto) Lymph # (Auto) Seg Neutrophils % Lymphocytes % Platelet Estimate RBC Morphology Polychromasia Hypochromasia Anisocytosis PT INR ABG Methemoglobin VBG pCO2 VBG pO2 VBG HCO3 VBG Total CO2 VBG O2 Saturation VBG Base Excess VBG Lactic Acid 9.4 H* 7.0 H* Carboxyhemoglobin Total Hemoglobin Sodium Chloride Carbon Dioxide Anion Gap BUN Creatinine Glucose Phosphorus Magnesium Total Bilirubin Direct Bilirubin AST Alkaline Phosphatase Lactate Dehydrogenase Total Creatine Kinase C-Reactive Protein Total Protein Albumin Albumin/Globulin Ratio Triglycerides Vitamin B12 Procalcitonin Urine Appearance Hazy A Urine Ketones Urine Occult Blood Urine Bilirubin Urine Urobilinogen 4.0 A Ur Leukocyte Esterase 500 A Urine RBC 17 H Urine WBC 22 H Ur Squamous Epith Cells 8 H Hyaline Casts Urine Mucus Few A Ur Random Creatinine 02/21/22 02/21/22 02/21/22 12:31 08:51 05:58 WBC RBC Hgb Hct RDW Plt Count Neut % (Auto) Lymph % (Auto) Lymph # (Auto) Seg Neutrophils % 90 H Lymphocytes % 5 L Platelet Estimate Decreased A RBC Morphology Abnormal A Polychromasia 1+ A Hypochromasia Anisocytosis 1+ A PT 17.5 H INR 1.4 H ABG Methemoglobin VBG pCO2 VBG pO2 VBG HCO3 VBG Total CO2 VBG O2 Saturation VBG Base Excess VBG Lactic Acid 5.1 H* Carboxyhemoglobin Total Hemoglobin Sodium Chloride Carbon Dioxide Anion Gap BUN Creatinine Glucose Phosphorus Magnesium Total Bilirubin Direct Bilirubin AST Alkaline Phosphatase Lactate Dehydrogenase Total Creatine Kinase C-Reactive Protein Total Protein Albumin Albumin/Globulin Ratio Triglycerides Vitamin B12 Procalcitonin Urine Appearance Urine Ketones Urine Occult Blood Urine Bilirubin Urine Urobilinogen Ur Leukocyte Esterase Urine RBC Urine WBC Ur Squamous Epith Cells Hyaline Casts Urine Mucus Ur Random Creatinine 02/21/22 02/21/22 02/21/22 05:58 05:58 05:58 WBC RBC Hgb Hct RDW 17.0 H Plt Count 98 L Neut % (Auto) 81.6 H Lymph % (Auto) 13.1 L Lymph # (Auto) 0.80 L Seg Neutrophils % Lymphocytes % Platelet Estimate RBC Morphology Polychromasia Hypochromasia Anisocytosis PT INR ABG Methemoglobin VBG pCO2 VBG pO2 VBG HCO3 VBG Total CO2 VBG O2 Saturation VBG Base Excess VBG Lactic Acid Carboxyhemoglobin Total Hemoglobin Sodium 132 L Chloride Carbon Dioxide 15 L Anion Gap 20.0 H BUN 28 H Creatinine 1.2 H Glucose 138 H Phosphorus 5.0 H Magnesium Total Bilirubin 4.6 H Direct Bilirubin 3.9 H AST 64 H Alkaline Phosphatase 223 H Lactate Dehydrogenase 494 H Total Creatine Kinase C-Reactive Protein Total Protein Albumin 2.4 L Albumin/Globulin Ratio 0.7 L Triglycerides 449 H Vitamin B12 Procalcitonin 1.08 H Urine Appearance Urine Ketones Urine Occult Blood Urine Bilirubin Urine Urobilinogen Ur Leukocyte Esterase Urine RBC Urine WBC Ur Squamous Epith Cells Hyaline Casts Urine Mucus Ur Random Creatinine 02/21/22 02/20/22 02/20/22 05:57 22:58 20:17 WBC RBC Hgb Hct RDW Plt Count Neut % (Auto) Lymph % (Auto) Lymph # (Auto) Seg Neutrophils % Lymphocytes % Platelet Estimate RBC Morphology Polychromasia Hypochromasia Anisocytosis PT INR ABG Methemoglobin VBG pCO2 VBG pO2 VBG HCO3 VBG Total CO2 VBG O2 Saturation VBG Base Excess VBG Lactic Acid Carboxyhemoglobin Total Hemoglobin Sodium Chloride Carbon Dioxide Anion Gap BUN Creatinine Glucose Phosphorus Magnesium Total Bilirubin Direct Bilirubin 2.6 H AST Alkaline Phosphatase Lactate Dehydrogenase 411 H Total Creatine Kinase 21 L C-Reactive Protein 25.90 H 22.20 H Total Protein Albumin Albumin/Globulin Ratio Triglycerides Vitamin B12 Procalcitonin Urine Appearance Urine Ketones 15 mg/dl A Urine Occult Blood Trace-lysed A Urine Bilirubin Small A Urine Urobilinogen 2.0 e.u./dl A Ur Leukocyte Esterase Small A Urine RBC 15 H Urine WBC 35 H Ur Squamous Epith Cells 17 H Hyaline Casts 9 H Urine Mucus Few A Ur Random Creatinine 02/20/22 02/20/22 02/20/22 18:30 14:50 14:50 WBC RBC 3.04 L Hgb 8.0 L Hct 24.9 L RDW 17.2 H Plt Count 116 L Neut % (Auto) 78.9 H Lymph % (Auto) 14.9 L Lymph # (Auto) 0.67 L Seg Neutrophils % Lymphocytes % Platelet Estimate RBC Morphology Polychromasia Hypochromasia Anisocytosis PT INR ABG Methemoglobin VBG pCO2 VBG pO2 VBG HCO3 VBG Total CO2 VBG O2 Saturation VBG Base Excess VBG Lactic Acid Carboxyhemoglobin Total Hemoglobin Sodium 127 L Chloride 92 L Carbon Dioxide 17 L Anion Gap 18.0 H BUN 32 H Creatinine 1.4 H Glucose Phosphorus Magnesium Total Bilirubin 3.1 H Direct Bilirubin AST 58 H Alkaline Phosphatase 212 H Lactate Dehydrogenase Total Creatine Kinase C-Reactive Protein Total Protein 5.5 L Albumin 2.3 L Albumin/Globulin Ratio 0.7 L Triglycerides Vitamin B12 Procalcitonin Urine Appearance Urine Ketones Urine Occult Blood Urine Bilirubin Urine Urobilinogen Ur Leukocyte Esterase Urine RBC Urine WBC Ur Squamous Epith Cells Hyaline Casts Urine Mucus Ur Random Creatinine 217.9 H Meds: Medications Acetaminophen (Acetaminophen 325 Mg Tablet) 650 mg PO Q6HP PRN; Protocol PRN Reason: Per Pain Protocol/Fever > 101 Albuterol/Ipratropium (Ipratropium/Albuterol 3 Ml Ampul.Neb) 3 ml NEB Q4HP PRN PRN Reason: Shortness Of Breath Docusate Sodium (Docusate Sodium 100 Mg Capsule) 100 mg PO BID [facility] Last Admin: 02/22/22 20:14 Dose: Not Given Documented by: Doxepin HCl (Doxepin 10 Mg Capsule) 10 mg PO HS [facility] Last Admin: 02/22/22 20:15 Dose: Not Given Documented by: Haloperidol Lactate (Haloperidol Lactate 5 Mg/Ml Vial) 2 - 5 mg IV Q6HP PRN PRN Reason: agitation Last Admin: 02/22/22 15:53 Dose: 5 mg Documented by: Hydroxyzine HCl (Hydroxyzine 25 Mg Tablet) 25 mg PO QID PRN PRN Reason: itching Potassium Chloride 40 meq/ (Dextrose) 520 mls @ 130 mls/hr IV UD PRN PRN Reason: Potassium < 3 Magnesium Sulfate (Magnesium Sulfate) 2 gm in 50 mls @ 50 mls/hr IV UD PRN PRN Reason: Magnesium </= 1.6 Piperacillin Sod/Tazobactam (Sod 3.375 gm/ Dextrose) 50 mls @ 100 mls/hr IV Q6H [facility]; Protocol Last Infusion: 02/23/22 06:14 Dose: Infused Documented by: Vancomycin HCl 1,000 mg/ (Sodium Chloride) 250 mls @ 250 mls/hr IV Q24H [facility] Last Infusion: 02/22/22 12:56 Dose: Infused Documented by: Dextrose/Lactated Ringer's (Dextrose 5%-Lactated Ringers) 1,000 mls @ 70 mls/hr IV .[id number] [facility] Last Admin: 02/23/22 03:50 Dose: 70 mls/hr Documented by: Thiamine HCl 100 mg/ Sodium (Chloride) 51 mls @ 50 mls/hr IV DAILY [facility] Stop: 02/24/22 10:02 Last Infusion: 02/22/22 15:28 Dose: Infused Documented by: Acetaminophen (Ofirmev) 650 mg in 65 mls @ 130 mls/hr IV Q6HP PRN; Protocol PRN Reason: PAIN/FEVER > 101 Last Admin: 02/23/22 08:05 Dose: 130 mls/hr Documented by: Dexmedetomidine HCl 400 mcg/ (Premix) 100 mls @ 4.014 mls/hr IV .Q24H [facility]; Protocol Last Titration: 02/23/22 06:57 Dose: 0 mcg/kg/hr, 0 mls/hr Documented by: Lidocaine (Lidocaine Patch) 1 patch TOPICAL DAILY@1000 [facility] Last Admin: 02/22/22 18:50 Dose: 1 patch Documented by: Melatonin (Melatonin 3 Mg Tablet) 6 mg PO QHS [facility] Last Admin: 02/22/22 20:14 Dose: Not Given Documented by: Methocarbamol (Methocarbamol 1,000 Mg/10 Ml Vial) 750 mg IV Q6HP PRN PRN Reason: Muscle Spasm Last Admin: 02/22/22 16:40 Dose: 750 mg Documented by: Ondansetron HCl (Ondansetron 4 Mg/2 Ml Vial) 4 mg IV Q4HP PRN PRN Reason: Nausea And Vomiting Pantoprazole Sodium (Pantoprazole 40 Mg Tablet) 40 mg PO BID [facility] Last Admin: 02/22/22 20:15 Dose: Not Given Documented by: Polyethylene Glycol (Polyethylene Glycol 3350 17 Gm Packet) 17 gm PO DAILYP PRN PRN Reason: Constipation Potassium Chloride (Potassium Chloride 20 Meq Tablet) 40 meq PO UD PRN PRN Reason: Potssium is 3-3.5 Potassium Chloride (Potassium Chloride 20 Meq Tablet) 40 meq PO UD PRN PRN Reason: Potassium < 3 Senna (Sennosides 1 Tablet) 2 tab PO HS [facility] Last Admin: 02/22/22 20:15 Dose: Not Given Documented by: Sodium Chloride (0.9 % Sodium Chloride 10 Ml Syringe) 10 ml IV Q8 [facility] Last Admin: 02/23/22 05:36 Dose: 10 ml Documented by: Sodium Chloride (0.9 % Sodium Chloride 10 Ml Syringe) 10 ml IV Q12 [facility] Last Admin: 02/22/22 20:24 Dose: 10 ml Documented by: Triamcinolone Acetonide (Triamcinolone Crm 0.5% Tube 15gm) 1 dose TOPICAL TIDP PRN PRN Reason: pruritis Vancomycin HCl (Vancomycin Per Pharmacy) 1 order IV UD [facility]; Protocol ABG Interpretation ABG results: 02/22/22 02/23/22 06:14 05:52 ABG Methemoglobin 0.2 L 0 L VBG pH 7.40 7.42 VBG pCO2 34.2 L 33.5 L VBG pO2 70.3 H 51.2 H VBG HCO3 20.6 L 21.2 L VBG Total CO2 21.6 L 22.3 L VBG O2 Saturation 86.5 H 81.4 H VBG Base Excess -4 L -3 L A/P Narrative A/P Narrative: A: *FTT/generalized decline and weakness/deconditioning: w/u outpt unremarkable except RICKY -has been going on for several months now *Encephalopathy, Metabolic: confusion/delerium worsened *Hyponatremia, chronic: Had been on HCTZ in the past, unknown if she still taking it -improved with IVF *HTN: On lisinopril, unsure if she is still taking the combination lisinopril/HCTZ *severe RICKY: Receiving iron and blood transfusion outpatient recently -Colonoscopy 2019 -no markers yet to suggest hemolytic anemia, no schistocytes on smear, normal haptoglobin -s/p PRBC (02/20) -stable thus far *Lactic Acidosis, Severe/Met acidosis: unknown etiology, elevated pct, no source of infection identified, no ishcemic bowel -VBG pH ok -CT c/a/p neg, mrcp neg, BC neg thus far - *Splenomegaly: *Pancytopenia: *MARY on CKD III: improved, but worsened today *Volume depletion: *Thrombocytopenia: monitor, worsening *Hyperbilirubinemia, direct: -GB unremarkable except for stones *chronic LAMBERT's: *Insomnia: *GERD: *Hypoalbuminemia: *goals of care: cont current treatment, no transfer to higher level of care, if continues to decline then likely comfort care P: -Empiric Abx given elevated PCT(was improving, but worsened today)/Lactate, pending BC -could this be refractory lactic acidosis from occult hematologic malignancy, odds are low but have not been able to find any other reason, broad abx with aggressive IVF, no cultures positives except a UC with <10,000 cfu gnb, no ischemic bowel per surgeon. -maintenance IVF, likely to start TF's today -cvp monitoring -prn lasix/albumin -vasopressors if needed -f/u lactate -monitor renal fxn & UOP -hold ACEI/celebrex for mary and low BP, make sure hctz is d/c'd from home meds -monitor sodium -monitor H&H, prn transfusion -sleep aids -dietary -pt/ot -cont current treatment, no transfer to higher level of care, if continues to decline then likely comfort care -ppx: hold chemical d/t PLT<50k / home ppi DNR Time Spent With Patient Time: Total time spent is greater than 50% in coordination of care (as documented) at patient's floor/unit and/or counseling patient: Critical Care Time: Yes Total Critical Care Time: 50 QUALITY VTE Deep Vein Thrombosis/Pulmonary Embolism Present on Admission: No
[2022-02-23] MEDS ORDERED: MAGNESIUM SULFATE 2 GM/50 ML BAG IV ONE (08:14)
[2022-02-23] MEDS: HALOPERIDOL LACTATE 5 MG/ML VIAL IV PRN ×2 (09:08→19:36)
[2022-02-23] MEDS: THIAMINE 100 MG in 0.9 % SODIUM CHLORIDE 50 ML IV SCH (09:45)
[2022-02-23] MEDS: METHOCARBAMOL 1,000 MG/10 ML VIAL IV PRN ×3 (09:57→23:57)
[2022-02-23] MEDS: DOCUSATE SODIUM 100 MG CAPSULE PO SCH ×2 (10:09→20:45)
[2022-02-23] MEDS: PANTOPRAZOLE 40 MG TABLET PO SCH ×2 (10:10→20:45)
[2022-02-23] MEDS: VANCOMYCIN 1,500 MG in 0.9 % SODIUM CHLORIDE 500 ML IV SCH (10:54)
[2022-02-23] MEDS: VANCOMYCIN 1,000 MG in 0.9 % SODIUM CHLORIDE 250 ML IV SCH (12:17)
[2022-02-23] MEDS: LACTOPEROXI/GLUC OXID/POT THIO 1 EACH GEL..EA. TOPICAL PRN ×2 (12:18→20:53)
[2022-02-23] MEDS: LIDOCAINE PATCH TOPICAL SCH (14:17)
[2022-02-23] MEDS: DOXEPIN 10 MG CAPSULE PO SCH (20:45)
[2022-02-23] MEDS: MELATONIN 3 MG TABLET PO SCH (20:45)
[2022-02-23] MEDS: SENNOSIDES 1 TABLET PO SCH (20:45)
[2022-02-23] MEDS: TRIAMCINOLONE CRM 0.5% TUBE 15GM TOPICAL PRN (21:04)
[2022-02-24] MEDS: DEXMEDETOMIDINE 400 MCG in PREMIX 1 BAG IV SCH (01:29)
[2022-02-24] MEDS: PIPERACILLIN SODIUM/TAZOBACTAM 3.375 GM in DEXTROSE 5% IN WATER 50 ML IV SCH ×2 (05:43→12:12)
[2022-02-24] MEDS: 0.9 % SODIUM CHLORIDE 10 ML SYRINGE IV SCH ×3 (05:43→12:38)
[2022-02-24] MEDS: PANTOPRAZOLE 40 MG TABLET PO SCH (07:47)
[2022-02-24] MEDS: DOCUSATE SODIUM 100 MG CAPSULE PO SCH (07:47)
[2022-02-24] MEDS: ACETAMINOPHEN 650 MG/65 ML BAG IV PRN (08:08)
[2022-02-24] MEDS: DEXTROSE 5%-LR 1,000 ML IV SCH (08:16)
[2022-02-24 08:56] LABS: Vancomycin,Random 10.7 ug/mL
[2022-02-24] MEDS: METHOCARBAMOL 1,000 MG/10 ML VIAL IV PRN (09:17)
[2022-02-24] MEDS: TRIAMCINOLONE CRM 0.5% TUBE 15GM TOPICAL PRN (09:18)
[2022-02-24] MEDS: LACTOPEROXI/GLUC OXID/POT THIO 1 EACH GEL..EA. TOPICAL PRN (09:18)
[2022-02-24] MEDS: LIDOCAINE PATCH TOPICAL SCH (09:23)
[2022-02-24] MEDS: THIAMINE 100 MG in 0.9 % SODIUM CHLORIDE 50 ML IV SCH (09:40)
[2022-02-24] MEDS: VANCOMYCIN 1,500 MG in 0.9 % SODIUM CHLORIDE 500 ML IV SCH (09:40)
[2022-02-24] MEDS ORDERED: LORazepam 2 MG/ML VIAL IV PRN (12:06)
[2022-02-24] MEDS ORDERED: HYDROmorphone 1 MG/ML SYRINGE IV PRN (12:06)
--- NOTE | 2022-02-24 12:08 | Internal Med Progress Note ---
SUBJECTIVE Subjective Patient information: Note initiated : 02/24/22 at 12:06 pm Service Date, if different from initiated Date: [as above] Patient: Sole Peñaloza 81 y/o F admitted on 02/20/22 for Weakness. Chief Complaint: [ALOC] Principal diagnosis: Toxic metabolic encephalopathy Interval history: The patient has made minimal clinical progress over the last several days. I had a goals of care discussion with the and the daughter at the bedside. Discussed the case with the RN. Constitutional Vitals: Vital Signs Temp Pulse Resp BP Pulse Ox 98.4 F 95 H 22 103/48 94 02/24/22 08:01 02/24/22 09:02 02/24/22 09:02 02/24/22 09:02 02/24/22 09:02 Period Temp Pulse Resp BP Sys/Rivera Pulse Ox Last 24 Hr 97.1 F-98.4 F 89-107 14-37 80-150/35-97 90-100 Intake and Output 02/23/22 02/24/22 02/24/22 21:59 05:59 13:59 Intake Total 1139 50 1115 Output Total 297 305 72 Balance 842 -255 1043 Weight 81.783 kg Intake & Output: Intake & Output 02/23/22 02/24/22 02/24/22 21:59 05:59 13:59 Intake Total 1139 50 1115 Output Total 297 305 72 Balance 842 -255 1043 Weight 81.783 kg Intake: IV 1139 50 1115 Dextrose 5%-Lactated Ringers 1, 974 1000 000 ml @ 70 mls/hr IV .[id number] [facility] Rx#:[id number] Zosyn 3.375 gm In Dextrose 5% 50 50 50 in Water 50 ml @ 100 mls/hr IV Q6H [facility] Rx#:[id number] Output: Urine Catheter Amount 297 305 72 Other: Urine Appearance Clear Clear Uretheral (Bain) Clear Clear Urine Color Dark Kimberli Gonzales Uretheral (Bain) Gonzales Light Kimberli Urine Odor Normal Normal Head Head exam: Present atraumatic and normal inspection Eye Eye exam: Present normal appearance ENT ENT exam: Present mucous membranes moist, normal exam and normal external ear exam Neck Neck exam: Present normal inspection Respiratory Respiratory exam: Present normal respiratory exam Cardiovascular Cardiovascular exam: Present normal rate and rhythm GI/Abdominal GI/Abdominal exam: Present normal bowel sounds Back Exam Back exam: Present normal inspection Neurological Exam Neurological exam: Present alert and altered Psychiatric Psychiatric exam: Present anxious; Absent agitated Skin Skin exam: Present intact and warm OBJ DATA Labs CBC & Chem 7: 02/23/22 05:52 02/23/22 05:51 Labs: Abnormal Lab Results 02/23/22 02/23/22 02/23/22 08:35 05:52 05:52 WBC RBC Hgb Hct RDW Plt Count Seg Neutrophils % Lymphocytes % Platelet Estimate RBC Morphology Polychromasia Hypochromasia Anisocytosis PT INR ABG Methemoglobin 0 L VBG pCO2 33.5 L VBG pO2 51.2 H VBG HCO3 21.2 L VBG Total CO2 22.3 L VBG O2 Saturation 81.4 H VBG Base Excess -3 L VBG Lactic Acid 9.5 H* Carboxyhemoglobin 5.4 H Total Hemoglobin 10.5 L Sodium Carbon Dioxide Anion Gap Creatinine Magnesium Total Bilirubin Direct Bilirubin AST Alkaline Phosphatase Lactate Dehydrogenase C-Reactive Protein Total Protein Albumin Albumin/Globulin Ratio Triglycerides Vitamin B12 Procalcitonin 0.98 H Urine Appearance Urine Urobilinogen Ur Leukocyte Esterase Urine RBC Urine WBC Ur Squamous Epith Cells Urine Mucus 02/23/22 02/23/22 02/22/22 05:52 05:51 08:29 WBC 2.8 L RBC 3.42 L Hgb 9.3 L Hct 28.2 L RDW 17.4 H Plt Count 38 L* Seg Neutrophils % Lymphocytes % Platelet Estimate Decreased A Decreased A RBC Morphology Abnormal A Abnormal A Polychromasia Hypochromasia 2+ A Anisocytosis 1+ A 1+ A PT INR ABG Methemoglobin VBG pCO2 VBG pO2 VBG HCO3 VBG Total CO2 VBG O2 Saturation VBG Base Excess VBG Lactic Acid Carboxyhemoglobin Total Hemoglobin Sodium Carbon Dioxide 20 L Anion Gap 19.0 H Creatinine 1.3 H Magnesium 1.5 L Total Bilirubin 5.8 H Direct Bilirubin 5.1 H AST 61 H Alkaline Phosphatase 158 H Lactate Dehydrogenase 407 H C-Reactive Protein 14.80 H Total Protein 4.5 L Albumin 2.2 L Albumin/Globulin Ratio Triglycerides 383 H Vitamin B12 Procalcitonin Urine Appearance Urine Urobilinogen Ur Leukocyte Esterase Urine RBC Urine WBC Ur Squamous Epith Cells Urine Mucus 02/22/22 02/22/22 02/22/22 06:15 06:14 06:14 WBC RBC Hgb Hct RDW Plt Count Seg Neutrophils % Lymphocytes % Platelet Estimate RBC Morphology Polychromasia Hypochromasia Anisocytosis PT 17.1 H INR 1.3 H ABG Methemoglobin 0.2 L VBG pCO2 34.2 L VBG pO2 70.3 H VBG HCO3 20.6 L VBG Total CO2 21.6 L VBG O2 Saturation 86.5 H VBG Base Excess -4 L VBG Lactic Acid Carboxyhemoglobin 7.5 H Total Hemoglobin 10.4 L Sodium Carbon Dioxide Anion Gap Creatinine Magnesium Total Bilirubin Direct Bilirubin AST Alkaline Phosphatase Lactate Dehydrogenase C-Reactive Protein Total Protein Albumin Albumin/Globulin Ratio Triglycerides Vitamin B12 Procalcitonin 0.74 H Urine Appearance Urine Urobilinogen Ur Leukocyte Esterase Urine RBC Urine WBC Ur Squamous Epith Cells Urine Mucus 02/22/22 02/22/22 02/22/22 06:14 06:14 06:13 WBC 3.0 L RBC 3.41 L Hgb 9.3 L Hct 28.6 L RDW 17.5 H Plt Count 64 L Seg Neutrophils % Lymphocytes % Platelet Estimate Decreased A RBC Morphology Abnormal A Polychromasia Hypochromasia Anisocytosis 1+ A PT INR ABG Methemoglobin VBG pCO2 VBG pO2 VBG HCO3 VBG Total CO2 VBG O2 Saturation VBG Base Excess VBG Lactic Acid Carboxyhemoglobin Total Hemoglobin Sodium 132 L Carbon Dioxide 18 L Anion Gap Creatinine Magnesium Total Bilirubin 4.5 H Direct Bilirubin 4.2 H AST 58 H Alkaline Phosphatase 166 H Lactate Dehydrogenase 343 H C-Reactive Protein 13.90 H Total Protein 4.1 L Albumin 1.8 L Albumin/Globulin Ratio 0.8 L Triglycerides 380 H Vitamin B12 1718.0 H Procalcitonin Urine Appearance Urine Urobilinogen Ur Leukocyte Esterase Urine RBC Urine WBC Ur Squamous Epith Cells Urine Mucus 02/22/22 02/21/22 02/21/22 06:13 19:00 17:23 WBC RBC Hgb Hct RDW Plt Count Seg Neutrophils % Lymphocytes % Platelet Estimate RBC Morphology Polychromasia Hypochromasia Anisocytosis PT INR ABG Methemoglobin VBG pCO2 VBG pO2 VBG HCO3 VBG Total CO2 VBG O2 Saturation VBG Base Excess VBG Lactic Acid 8.0 H* 9.4 H* Carboxyhemoglobin Total Hemoglobin Sodium Carbon Dioxide Anion Gap Creatinine Magnesium Total Bilirubin Direct Bilirubin AST Alkaline Phosphatase Lactate Dehydrogenase C-Reactive Protein Total Protein Albumin Albumin/Globulin Ratio Triglycerides Vitamin B12 Procalcitonin Urine Appearance Hazy A Urine Urobilinogen 4.0 A Ur Leukocyte Esterase 500 A Urine RBC 17 H Urine WBC 22 H Ur Squamous Epith Cells 8 H Urine Mucus Few A 02/21/22 02/21/22 02/21/22 12:31 12:31 05:58 WBC RBC Hgb Hct RDW Plt Count Seg Neutrophils % 90 H Lymphocytes % 5 L Platelet Estimate Decreased A RBC Morphology Abnormal A Polychromasia 1+ A Hypochromasia Anisocytosis 1+ A PT 17.5 H INR 1.4 H ABG Methemoglobin VBG pCO2 VBG pO2 VBG HCO3 VBG Total CO2 VBG O2 Saturation VBG Base Excess VBG Lactic Acid 7.0 H* Carboxyhemoglobin Total Hemoglobin Sodium Carbon Dioxide Anion Gap Creatinine Magnesium Total Bilirubin Direct Bilirubin AST Alkaline Phosphatase Lactate Dehydrogenase C-Reactive Protein Total Protein Albumin Albumin/Globulin Ratio Triglycerides Vitamin B12 Procalcitonin Urine Appearance Urine Urobilinogen Ur Leukocyte Esterase Urine RBC Urine WBC Ur Squamous Epith Cells Urine Mucus Meds: Medications Acetaminophen (Acetaminophen 325 Mg Tablet) 650 mg PO Q6HP PRN; Protocol PRN Reason: Per Pain Protocol/Fever > 101 Albuterol/Ipratropium (Ipratropium/Albuterol 3 Ml Ampul.Neb) 3 ml NEB Q4HP PRN PRN Reason: Shortness Of Breath Docusate Sodium (Docusate Sodium 100 Mg Capsule) 100 mg PO BID [facility] Last Admin: 02/24/22 07:47 Dose: Not Given Documented by: Doxepin HCl (Doxepin 10 Mg Capsule) 10 mg PO [facility] Last Admin: 02/23/22 20:45 Dose: Not Given Documented by: Glucose Oxid/Lactoperoxid/Muramidas (Lactoperoxi/Gluc Oxid/Pot Thio 1 Each Gel..Ea.) 1 each TOPICAL PRN PRN PRN Reason: Dry Mouth Last Admin: 02/24/22 09:18 Dose: 1 each Documented by: Haloperidol Lactate (Haloperidol Lactate 5 Mg/Ml Vial) 2 - 5 mg IV Q6HP PRN PRN Reason: agitation Last Admin: 02/23/22 19:36 Dose: 5 mg Documented by: Hydroxyzine HCl (Hydroxyzine 25 Mg Tablet) 25 mg PO QID PRN PRN Reason: itching Potassium Chloride 40 meq/ (Dextrose) 520 mls @ 130 mls/hr IV UD PRN PRN Reason: Potassium < 3 Magnesium Sulfate (Magnesium Sulfate) 2 gm in 50 mls @ 50 mls/hr IV UD PRN PRN Reason: Magnesium </= 1.6 Last Infusion: 02/23/22 19:51 Dose: Infused Documented by: Piperacillin Sod/Tazobactam (Sod 3.375 gm/ Dextrose) 50 mls @ 100 mls/hr IV Q6H [facility]; Protocol Last Infusion: 02/24/22 06:33 Dose: Infused Documented by: Dextrose/Lactated Ringer's (Dextrose 5%-Lactated Ringers) 1,000 mls @ 70 mls/hr IV .[id number] [facility] Last Admin: 02/24/22 08:16 Dose: 70 mls/hr Documented by: Acetaminophen (Ofirmev) 650 mg in 65 mls @ 130 mls/hr IV Q6HP PRN; Protocol PRN Reason: PAIN/FEVER > 101 Last Infusion: 02/24/22 09:13 Dose: Infused Documented by: Dexmedetomidine HCl 400 mcg/ (Premix) 100 mls @ 4.014 mls/hr IV .Q24H [facility]; Protocol Last Admin: 02/24/22 01:29 Dose: Not Given Documented by: Vancomycin HCl 1,500 mg/ (Sodium Chloride) 500 mls @ 333.3 mls/hr IV Q24H [facility] Last Admin: 02/24/22 09:40 Dose: Not Given Documented by: Lidocaine (Lidocaine Patch) 1 patch TOPICAL DAILY@1000 [facility] Last Admin: 02/24/22 09:23 Dose: 1 patch Documented by: Melatonin (Melatonin 3 Mg Tablet) 6 mg PO QHS [facility] Last Admin: 02/23/22 20:45 Dose: Not Given Documented by: Methocarbamol (Methocarbamol 1,000 Mg/10 Ml Vial) 750 mg IV Q6HP PRN PRN Reason: Muscle Spasm Last Admin: 02/24/22 09:17 Dose: 750 mg Documented by: Ondansetron HCl (Ondansetron 4 Mg/2 Ml Vial) 4 mg IV Q4HP PRN PRN Reason: Nausea And Vomiting Last Admin: 02/23/22 11:25 Dose: 4 mg Documented by: Pantoprazole Sodium (Pantoprazole 40 Mg Tablet) 40 mg PO BID [facility] Last Admin: 02/24/22 07:47 Dose: Not Given Documented by: Polyethylene Glycol (Polyethylene Glycol 3350 17 Gm Packet) 17 gm PO DAILYP PRN PRN Reason: Constipation Potassium Chloride (Potassium Chloride 20 Meq Tablet) 40 meq PO UD PRN PRN Reason: Potssium is 3-3.5 Potassium Chloride (Potassium Chloride 20 Meq Tablet) 40 meq PO UD PRN PRN Reason: Potassium < 3 Senna (Sennosides 1 Tablet) 2 tab PO HS [facility] Last Admin: 02/23/22 20:45 Dose: Not Given Documented by: Sodium Chloride (0.9 % Sodium Chloride 10 Ml Syringe) 10 ml IV Q8 [facility] Last Admin: 02/24/22 05:43 Dose: 10 ml Documented by: Sodium Chloride (0.9 % Sodium Chloride 10 Ml Syringe) 10 ml IV Q12 [facility] Last Admin: 02/24/22 08:09 Dose: 10 ml Documented by: Triamcinolone Acetonide (Triamcinolone Crm 0.5% Tube 15gm) 1 dose TOPICAL TIDP PRN PRN Reason: pruritis Last Admin: 02/24/22 09:18 Dose: 1 dose Documented by: Vancomycin HCl (Vancomycin Per Pharmacy) 1 order IV UD [facility]; Protocol ABG Interpretation ABG results: 02/22/22 02/23/22 06:14 05:52 ABG Methemoglobin 0.2 L 0 L VBG pH 7.40 7.42 VBG pCO2 34.2 L 33.5 L VBG pO2 70.3 H 51.2 H VBG HCO3 20.6 L 21.2 L VBG Total CO2 21.6 L 22.3 L VBG O2 Saturation 86.5 H 81.4 H VBG Base Excess -4 L -3 L A/P Narrative A/P Narrative: A: *FTT/generalized decline and weakness/deconditioning: w/u outpt unremarkable except RICKY -has been going on for several months now *Encephalopathy, Metabolic: confusion/delerium worsened *Hyponatremia, chronic: Had been on HCTZ in the past, unknown if she still taking it -improved with IVF *HTN: On lisinopril, unsure if she is still taking the combination lisinopril/HCTZ *severe RICKY: Receiving iron and blood transfusion outpatient recently -Colonoscopy 2019 -no markers yet to suggest hemolytic anemia, no schistocytes on smear, normal haptoglobin -s/p PRBC (02/20) -stable thus far *Lactic Acidosis, Severe/Met acidosis: unknown etiology, elevated pct, no source of infection identified, no ishcemic bowel -VBG pH ok -CT c/a/p neg, mrcp neg, BC neg thus far - *Splenomegaly: *Pancytopenia: *MARY on CKD III: improved, but worsened today *Volume depletion: *Thrombocytopenia: monitor, worsening *Hyperbilirubinemia, direct: -GB unremarkable except for stones *chronic LAMBERT's: *Insomnia: *GERD: *Hypoalbuminemia: *goals of care: cont current treatment, no transfer to higher level of care, if continues to decline then likely comfort care P: -02/24: The patient will be transition to comfort measures only. She will be transferred out of the ICU. -Empiric Abx given elevated PCT(was improving, but worsened today)/Lactate, pending BC -could this be refractory lactic acidosis from occult hematologic malignancy, odds are low but have not been able to find any other reason, broad abx with aggressive IVF, no cultures positives except a UC with <10,000 cfu gnb, no ischemic bowel per surgeon. -maintenance IVF, likely to start TF's today -cvp monitoring -prn lasix/albumin -vasopressors if needed -f/u lactate -monitor renal fxn & UOP -hold ACEI/celebrex for mary and low BP, make sure hctz is d/c'd from home meds -monitor sodium -monitor H&H, prn transfusion -sleep aids -dietary -pt/ot -cont current treatment, no transfer to higher level of care, if continues to decline then likely comfort care -ppx: hold chemical d/t PLT<50k / home ppi DNR Time Spent With Patient Time: Total time spent is greater than 50% in coordination of care (as documented) at patient's floor/unit and/or counseling patient: Total time spent with greater than 50% in coordination of care (as documented) at patient's floor/unit and/or counseling patient:: 25 - 35 minutes QUALITY VTE Deep Vein Thrombosis/Pulmonary Embolism Present on Admission: No
[2022-02-24] MEDS ORDERED: 0.9 % SODIUM CHLORIDE 10 ML SYRINGE IV SCH (14:00)
--- NOTE | 2022-02-24 15:42 | Discharge Summary ---
Discharge Provider Provider IMPORTANT FOLLOW-UP INFORMATION FOR PCP: Patient information: Note initiated : 02/24/22 at 3:39 pm Service Date, if different from initiated Date: [as above] Patient: Sole Peñaloza 81 y/o F admitted on 02/20/22 for Weakness. Chief Complaint: [] Date of admission: 02/20/22 21:24 Discharge date: 02/24/22 Primary care physician: Jatinder Boateng MD Consults: 02/20/22 Consult to Physician [CONS] Stat Comment: Consulting Provider: Tony Mathur Reason For Exam: Physician to Consult 02/22/22 11:28 Consult to Physician [CONS] Routine Comment: Consulting Provider: Miesha Avendaño Reason For Exam: Physician to Consult Discharging clinician: Alba MILLER Hospital Course Hospital course: Ms. Guevara is a 81 year old F presents to the ED with increasing weakness and lethargy. Brought in by her daughter. Admitted on February 10 for a couple days. At that time she had been ill for couple months with vague symptoms. 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 He was anemic and this was eventually felt to be related to iron deficiency anemia and is followed up with Dr. Avendaño. She has had poor sleep. Since discharge the daughter says the patient is declined. She is becoming increasingly weak lethargic poor appetite nausea not eating well or drinking well. She has had continued work-up outpatient. She had iron transfusion yesterday. And a blood transfusion that was scheduled tomorrow but she received today in the ED. She has had a diffuse morbilliform rash that the daughter recalls was noticed when she arrived the first time to the ED. She does not know if the rash preceded the ER visit or if it started occurring in the ED. Patient denies any headache fever chills chest pain stomach pain just has nausea malaise weakness poor appetite. No melena or tarry stools. She had a colonoscopy in 2019. Came to ED for abdominal pain on February [address] a of the chest and CT abdomen pelvis as well as well as thoracic and cervical spine MRI. The MRI is just showed degenerative joint along the spine and some disc protrusion but no acute findings. The CT abdomen pelvis showed no acute disease, did find cholelithiasis and some hepatomegaly. The CTA of the chest was unremarkable other than some subsegmental atelectasis. She is also had extremely poor sleep. 02/21 Patient states that "maybe" she feels little better. Seems to have a slight more energy than yesterday. at bedside asking about iron infusions that had been ordered by Dr. Boateng. Sodium mildly better. Acidosis noted. Creatinine mildly better. Phosphorus elevated. Bilirubin elevated. Check with nursing about how she slept. Patient denies any headache fever chills nausea or vomiting. 02/22 Patient altered this morning, confused. Sounds like she was able to get a little better sleep last night. Agitated this morning. at bedside. Urine output poor. Blood pressure adequate. Bolusing lactated Ringer's to a CVP of 8. Lactate mildly improved but still quite high at 8. Leukopenia present thrombocytopenia present, anemia. INR 1.3, better than yesterday 1.4. Nothing growing in the blood or urine yet. Sodium stable. Acidosis proving. Creatinine improved. Phos better. Patient still quite ill and now more altered. Multiple imagings modalities unremarkable for infection except for GB u/s showing signs of cholecystitis. CRP/pct even improving. Given the gallbladder rate of potential cholecystitis a discussed case with Dr. Avendaño who evaluated the patient and found a benign abdomen, no Davidson sign. Did not feel that there was acute cholecystitis that was causing these symptoms. Does not believe that there is any bowel ischemia or issues going on. 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 The patient's history and presentation does seem to align with this type of scenario. She has been declining over the past 2 to 3 months including generalized weakness and fatigue and poor appetite, poor sleep, abnormal CBC with anemia and she was getting iron infusions and blood transfusions outpatient. Her CBC has since progressed to pancytopenia. She has a renal insufficiency. And an elevated direct hyperbilirubinemia. Her haptoglobin is within normal limit and there is no schistocytes on smear. The peripheral smear shows microcytic anemia and pancytopenia but no other distinctive results. 02/24: I took over the care of this patient yesterday afternoon. It was decided by the family not to transfer her to an outside facility. With ongoing medical care, there was no improvement in her condition and today after further goals of care discussion, she was transition to comfort measures only. I was notified by the RN, that the patient at 1523 this afternoon. Discharge diagnosis: Toxic metabolic encephalopathy, sepsis of unclear etiology, pancytopenia Time Spent with Patient Time attestation: Total time spent providing and/or coordinating discharge services: Time spent: Greater than 30 minutes EXAM Constitutional Vitals: Temp Pulse Resp BP Pulse Ox 98.4 F 95 H 22 103/48 94 02/24/22 08:01 02/24/22 09:02 02/24/22 09:02 02/24/22 09:02 02/24/22 09:02 Discharge Data Data Completed and Pending Labs on day of discharge: Labs from last 24 hours 02/24/22 08:02 Random Vancomycin 10.7 Preliminary micro results at discharge 02/21/22 08:59 Blood Culture - Preliminary Blood 02/21/22 08:51 Blood Culture - Preliminary Blood Discharge Plan Patient/Caregiver Discharge Instructions Prescriptions: No Action pantoprazole 40 mg tablet,delayed release (DR/EC) 40 mg PO BID Qty: 60 1RF celecoxib [Celebrex] 100 mg capsule 100 mg PO BID Qty: 60 1RF triamcinolone acetonide 0.5 % cream 1 applic topical TID Qty: 15 3RF hydroxyzine HCl 25 mg tablet 25 mg PO QID PRN (Reason: itching) Qty: 120 0RF multivitamin Tablet 1 tab PO QAM 0RF quetiapine 25 mg Tablet 12.5 mg PO HS Qty: 30 1RF sennosides [Senna Lax] 8.6 mg Tablet 2 tab PO HS Qty: 30 0RF lactulose 10 gram/15 mL solution 20 g PO QDAY PRN (Reason: constipation) Qty: 237 0RF lisinopril 10 mg tablet 10 mg PO QDAY Qty: 30 2RF Follow Up Plan Patient Disposition: Prognosis: Serious Discharge Orders: Discharge Order (Routine); Ordered 02/24/22 Ordered By: Alba BUSTILLO VTE Deep Vein Thrombosis/Pulmonary Embolism Present on Admission: No
== END 2022-02-24 15:23 | disposition expired | DRG 91 ==
LOC: ED 13:50 → MEDSUR 21:24 → ICU 02-21 14:49 → MEDSUR 02-24 13:47
PROVIDERS: ADMIT Internal Medicine; ATTEND Student in an Organized Health Care Education/Training Program